=== PATIENT | female | born 1955 | race Caucasian/White ===

== ENCOUNTER 2017-12-30 05:22 | Inpatient (IN) | payer OTHER, BC ==
[2017-12-01 14:51] VITALS: BMI 39.0
--- NOTE | 2017-12-01 15:05 | PAT Medication Instructions ---
Service Date Dec 01, 2017. Current Home Medication List Naproxen (Aleve), 440 MG PO PRN Medication Instructions For Your Scheduled Surgery - Check with surgeon for instructions: Naproxen (Aleve), 440 MG PO PRN If you have any questions please call us at [phone] or [phone] or [phone]
[2017-12-01 15:27] LABS: BASO % 0.5 %; BASO ABS # 0.04 K/uL (0-0.2); EOS % 3.1 %; EOS ABS # 0.26 K/uL (0-0.5); HEMATOCRIT 41.4 % (37-47); HEMOGLOBIN 13.8 g/dL (12.0-16.0); IG# 0.02 K/uL (0.00-0.02); LYMPH % 29.6 %; LYMPH ABS # 2.49 K/uL (1.2-3.4); MEAN CELL VOLUME 93.9 fL (80-100); MEAN CORPUSCULAR HEMOGLOBIN 31.3 pg (25-34); MEAN CORPUSCULAR HGB CONC 33.3 g/dl (32-36); MEAN PLATELET VOLUME 9.7 fL (7.4-10.4); MONO % 11.2 %; MONO ABS # 0.94 K/uL (0.11-0.59); NEUT % 55.4 %; NEUT ABS # 4.66 K/uL (1.4-6.5); PLATELET COUNT 255 K/uL (130-400); RED CELL DISTRIBUTION WIDTH CV 14.8 % (11.5-14.5); RED CELL DISTRIBUTION WIDTH SD 50.6 fL (36.4-46.3); WHITE BLOOD COUNT 8.41 K/uL (4.8-10.8)
[2017-12-01 15:39] LABS: PTT PATIENT 25.2 SECONDS (21.0-31.0)
--- NOTE | 2017-12-01 15:56 | DIAGNOSTIC IMAGING REPORT ---
CHEST 2 VIEWS ROUTINE CLINICAL HISTORY: PAT preoperative evaluation COMPARISON STUDY: No previous studies for comparison. FINDINGS: The bones soft tissues and hemidiaphragms are normal. The cardiomediastinal silhouette is normal. The lungs are clear. The pulmonary vasculature is normal. IMPRESSION: Negative chest. The above report was generated using voice recognition software. It may contain grammatical, syntax or spelling errors. Electronically signed by: Edmund Allen M.D. 12/01/2017 3:55 PM Dictated Date/Time: 12/01/2017 3:55 PM
[2017-12-01 16:23] LABS: HEMOGLOBIN A1C 5.7 % (4.5-5.6)
[2017-12-01 16:58] LABS: ALBUMIN 3.9 gm/dl (3.4-5.0); CALCIUM 9.4 mg/dl (8.5-10.1); CREATININE 0.84 mg/dl (0.60-1.20); POTASSIUM 4.1 mmol/L (3.5-5.1)
--- NOTE | 2017-12-29 10:07 | HISTORY & PHYSICAL EXAMINATION ---
DATE OF ADMISSION: 12/30/2017 CHIEF COMPLAINT: Right knee pain. HISTORY OF PRESENT ILLNESS: The patient is a 62-year-old female with known osteoarthritis about her bilateral knees, right worse than left. She has had previous conservative care by an outside physician. She presented to us with thoughts of knee replacement surgery. Due to failure of conservative management and ongoing pain and disability with work and activities of daily living, she now desires to proceed with right total knee arthroplasty. PAST MEDICAL HISTORY: Hypertension. PAST SURGICAL HISTORY: None. MEDICATIONS: Lopressor 25 mg at bedtime. ALLERGIES: PENICILLIN in childhood. SOCIAL HISTORY AND REVIEW OF SYSTEMS: Noncontributory. PHYSICAL EXAMINATION: GENERAL: Well nourished, well developed female who appears her stated age. HEENT: Normocephalic, atraumatic, extraocular movements intact, oropharynx pink and moist. NECK: Supple without adenopathy. LUNGS: Clear to auscultation bilaterally. HEART: Regular rate and rhythm. ABDOMEN: Soft, nontender, nondistended, obese. EXTREMITIES: The upper extremities are within normal limits. The right knee has a varus alignment. She complains primarily of medial compartment pain. Her range of motion is from 0-120 degrees with some mild crepitus. X-RAYS: X-rays were reviewed. She has a varus aligned knee. She has [id number] arthritis of the medial compartment with large medial osteophytes. There is moderate degenerative change about the patellofemoral joint with osteophytes as well. ASSESSMENT: Right knee degenerative joint disease. PLAN: Risks versus benefits were discussed, consent was obtained. The patient's primary care physician is Lorne Victor PA-C from [facility] in [place]. We will proceed with right total knee arthroplasty as indicated.
[2017-12-30] VITALS (11 sets, daily range): BP systolic 125–204; BP diastolic 75–102; PULSE 67–99; TEMP 36.3–36.7; O2SAT 94–100; Ht 162.6 cm; Wt 104.9 kg
[~2017-12-30] VITALS: Ht 162.6 cm; Wt 104.9 kg
[~2017-12-30 05:22] MED LIST: MISSING PHYSICIAN SIGNATURE ON ORDER SCH; NAPR1TAB9 PO
[2017-12-30] MEDS ORDERED: METO25TA56 PO (05:48)
[2017-12-30] MEDS ORDERED: TRANEXAMIC ACID INJ 1,000 MG x 2 Bags IV SCH ×2 (06:00)
[2017-12-30] MEDS ORDERED: LACTATED RINGER'S 1000ML 1,000 ML IV SCH (06:00)
[2017-12-30] MEDS ORDERED: GABAPENTIN 600 MG PO SCH ×2 (06:00)
[2017-12-30] MEDS ORDERED: OXYCODONE HCL 10 MG TABCR (OXYCONTIN) PO SCH ×2 (06:00)
[2017-12-30] MEDS ORDERED: FAMOTIDINE 20 MG TAB PO SCH ×2 (06:00)
[2017-12-30] MEDS ORDERED: ROPIVACAINE 5MG/ML 30 ML 150 MG, BUPIVACAINE 0.5% MPF INJ 30 ML, EpINEphrine HCL INJ 0.... INFIL SCH ×8 (06:00)
[2017-12-30] MEDS ORDERED: LACTATED RINGER'S 1000ML 500 ML IV SCH (06:00)
[2017-12-30] MEDS ORDERED: CLINDAMYCIN 600 MG/54 ML D5W 54 ML IV SCH ×2 (06:00)
[2017-12-30] MEDS ORDERED: CeleBREX 200 MG CAP PO SCH ×2 (06:00)
[2017-12-30] MEDS ORDERED: LACTATED RINGER'S 1000ML IV SCH ×2 (06:00)
[2017-12-30] MEDS ORDERED: ACETAMINOPHEN 500 MG TAB PO SCH ×2 (06:00)
[2017-12-30] MEDS ORDERED: METOCLOPRAMIDE HCL 10 MG TAB PO SCH ×2 (06:00)
[2017-12-30] MEDS ORDERED: DEXAMETHASONE 4 MG TAB PO SCH ×2 (06:00)
[2017-12-30] MEDS ORDERED: BUPIVACAINE 0.5 % 5 MG/1 ML PF 10ML VIAL ONE (06:27)
[2017-12-30] MEDS ORDERED: PROPOFOL IV EMULSION 10 MG/ML 20 ML VIAL IV ONE (06:34)
[2017-12-30] MEDS ORDERED: FENTANYL CITRATE INJ 50 MCG/1 ML 2 ML VIAL ONE (06:34)
[2017-12-30] MEDS ORDERED: MIDAZOLAM HCL 1 MG/ML 2ML VIAL ONE ×2 (06:34→07:44)
--- NOTE | 2017-12-30 06:51 | History & Physical Bridge Note ---
H&P Re-Evaluation Bridge Note: I have examined the patient, reviewed the History & Physical and in the interval since the performance of the History & Physical I have noted the following changes of clinical significance: No changes noted
[2017-12-30] MEDS ORDERED: ORTHO JOINT ANESTHETIC ONE (06:59)
[2017-12-30] MEDS ORDERED: POVIDONE-IODINE OP SOLN 30 ML BTL ONE (06:59)
[2017-12-30] MEDS ORDERED: BACITRACIN 50000 UNIT VIAL ONE (06:59)
[2017-12-30] MEDS: TRANEXAMIC ACID INJ 1,000 MG x 2 Bags IV SCH ×4 (07:06→11:32)
[2017-12-30] MEDS ORDERED: EpHEDrine SULFATE INJ 50 MG/ML AMP IV PRN (07:45)
[2017-12-30] MEDS ORDERED: FENTANYL CITRATE INJ 50 MCG/1 ML 2 ML VIAL IV PRN (07:45)
[2017-12-30] MEDS ORDERED: ONDANSETRON INJ 2 MG/ML 2 ML VIAL IV PRN ×2 (07:45→09:15)
[2017-12-30] MEDS ORDERED: ATROPINE SULFATE 0.1 MG/ML 5ML SYR IV PRN (07:45)
--- NOTE | 2017-12-30 08:45 | [facility] Post Operative Brief Note ---
Immediate Operative Summary Operative Date Dec 30, 2017. Pre-Operative Diagnosis Right Knee Degenerative Joint Disease Post-Operative Diagnosis Right Knee Degenerative Joint Disease Procedure(s) Performed Right Total Knee Arthroplasty Surgeon Dr. Villalta Director Instrumentation Surgeon(s) Anil Hansen Pa-C Estimated Blood Loss 10 ml Findings Consistent with Post-Op Diagnosis Specimens A. Right Knee Bone and Tissue Anesthesia Type MAC Spinal Regional Complication(s) none Disposition Accompanied Pt To Recover: no Disposition: Recovery Room / PACU
[2017-12-30] MEDS ORDERED: MAGNESIUM HYDROXIDE SUSP 30 ML UDC PO PRN (09:15)
[2017-12-30] MEDS ORDERED: MoRPHine SULFATE 2 MG/ML CARP IV PRN ×2 (09:15→11:45)
[2017-12-30] MEDS ORDERED: METOCLOPRAMIDE HCL INJ 5 MG/ML 2 ML VIAL IV PRN (09:15)
[2017-12-30] MEDS ORDERED: ZOLPIDEM TARTRATE 5 MG TAB PO PRN (09:15)
[2017-12-30] MEDS ORDERED: OXYCODONE HCL IR 5 MG TAB (IMMEDIATE RELEASE) PO PRN (09:15)
[2017-12-30] MEDS ORDERED: ALUMINUM/MAGNESIUM/SIMETH (MAALOX MAX) 30 ML UDC PO PRN (09:15)
--- NOTE | 2017-12-30 09:28 | DIAGNOSTIC IMAGING REPORT ---
RIGHT KNEE 2 VIEWS History: Right total knee arthroplasty. Degenerative arthritis. Postop. FINDINGS: The patient is status post a right total knee arthroplasty. The hardware is intact. Subtle lucency at the proximal tip of the fibula best seen on the lateral view. Surgical drains are in place. IMPRESSION: Right total knee arthroplasty. Small horizontal lucency at the proximal tip of the fibula best seen on the lateral view. This favors a small nondisplaced fracture. Electronically signed by: Yannick Pruitt M.D. 12/30/2017 9:27 AM Dictated Date/Time: 12/30/2017 9:23 AM
--- NOTE | 2017-12-30 09:44 | Anesthesiology Progress Note ---
Anesthesia Post Op Note Date & Time Dec 30, 2017 at 09:44 Vital Signs Pain Intensity: 0 Vital Signs Past 12 Hours Date Time Temp Pulse Resp B/P (MAP) Pulse Ox O2 Delivery O2 Flow Rate FiO2 12/30/17 09:25 64 12 156/78 99 Nasal Cannula 2 12/30/17 09:15 62 12 156/81 98 Nasal Cannula 2 12/30/17 09:05 36.0 79 13 170/83 95 Nasal Cannula 2 12/30/17 05:45 36.5 75 20 204/102 99 Room Air Notes Mental Status: alert / awake / arousable, participated in evaluation Pt Amnestic to Procedure: Yes Nausea / Vomiting: adequately controlled Pain: adequately controlled Airway Patency, RR, SpO2: stable & adequate BP & HR: stable & adequate Hydration State: stable & adequate Neuraxial Anesthesia: was administered, sensory block is resolving Anesthetic Complications: no major complications apparent
--- NOTE | 2017-12-30 10:44 | OPERATIVE REPORT ---
DATE OF OPERATION: 12/30/2017 PREOPERATIVE DIAGNOSIS: Osteoarthritis right knee. POSTOPERATIVE DIAGNOSIS: Osteoarthritis right knee. PROCEDURE: Right total knee arthroplasty. SURGEON: Chaitanya Villalta MD ELECTRICAL HARDWARE ENGINEER: Anil Hnasen PA-C. ANESTHESIA: Spinal. COMPLICATIONS: None. OPERATION AND FINDINGS: Femoral size 3, tibial size 3, tibial poly 16, patella size 36. Following induction of spinal anesthesia, the patient's right leg was prepped and draped in the usual sterile manner. Limb was exsanguinated with an Esmarch bandage and tourniquet was inflated to 350 mmHg. A longitudinal incision was made anteriorly. Subcutaneous tissue was sharply dissected. Electrocautery was used for hemostasis. Prepatellar bursa was incised and median parapatellar incision was performed. Patella was everted and the knee was flexed. Fat pad was removed to aid in visualization and the anterior and posterior cruciate ligaments were removed. The medial face of the tibia was cleared of soft tissue first with a Bovie and a Rosen elevator. This tissue was retracted posteriorly using a blunt Hohmann. A Harper retractor was used to expose the synovium above on the anterior aspect of the femur and this was removed down to bone. The PSI guide was placed on the distal femur and two pins were placed anteriorly and kept in position and two additional pins were placed distally and removed. The distal femoral cutting block was placed in position and the distal femoral cut was used in the +0 setting. Next, the cutting block was removed and the size 3 block was placed in the distal end of the femur. Care was taken to ensure appropriate external rotation and feeler gauge was used to ensure no notching would occur. The femoral block was centered on the distal femur and in the medial and lateral direction and was fixed using two bone screws. The gold pins were then removed. The oscillating saw was used to create the bone cuts and the distal femoral cutting block was removed and the reciprocating saw was used to further trim the femoral cuts as well as a deep in the area for the trochlear groove. Next, posterior condyle remnants were removed. Following this, a meniscal clamp and knife were utilized to remove the anterior portion of both medial and lateral meniscus. The proximal tibia PSI guide was placed into position and the proximal tibial cutting guide was screwed into position. The extra medullary alignment guide was utilized to ensure appropriate alignment. The proximal tibia was cut and the proximal tibial cutting block was removed and this bone fragment was removed. The appropriate guide was used to perform the notch cut on the distal femur and a lamina non destructive evaluation manager and a cochlear knife were utilized to finish both medial and lateral meniscectomies to remove any remnants of the posterior or anterior cruciate ligaments. Following this, the distal femoral component was impacted into position and blunt Zen was used to sublux the tibia anteriorly. The proximal tibia was sized and a size 3 tibial tray was chosen as the size to be used. This was put into position and appropriate external rotation and a double check with extramedullary alignment guide was performed. The canal for the tibial stem was prepared first with a 17 mm drill and then the punch and a mallet and the trial tibial poly was placed. A tibial poly 16 was chosen the size to be used. It was brought to extension and the patella was prepared with the patellar reamer. A size 36 component was chosen the size to be used. The trial component was placed and knee was taken through a full range of motion and there was found to be no lateral subluxation of the tibia. No lateral release was required. The trials were all removed. The final components were obtained and assembled. Cement was mixed. The knee was thoroughly irrigated and the ortho mix was injected about the knee joint. The final components were cemented into position. After thoroughly suctioning and drying the bone ends, all excess cement was removed. The knee was held in extension while the cement hardened. The wound was irrigated and closed over a Hemovac drain. #1 Vicryl was used to close the extensor mechanism. Subcutaneous tissues closed using 0 Dexon. Skin was closed with lata. Sterile dressing of Adaptic, 4 x 4's, sterile Webril, and Solomon was applied. The patient tolerated the procedure well. Due to the complex nature of the procedure, the entire surgery was performed with the operational assistance of Anil Hansen PA-C. The funeral home assistant, under direct supervision, was involved in the actual performance of all aspects of the surgical procedure including hemostasis, tissue retraction and incision, instrument management, patient positioning, and wound closure. DISPOSITION: Recovery room stable. I attest to the content of the Intraoperative Record and any orders documented therein. Any exception s are noted below.
[2017-12-30] MEDS: D5W AND 1/2NSS + 20MEQ KCL 1,000 ML IV SCH ×2 (11:33→21:57)
[2017-12-30] MEDS: KETOROLAC TROMETHAMINE 30 MG/ML VIAL IV. SCH ×3 (11:33→23:49)
[2017-12-30] MEDS ORDERED: MoRPHine SULFATE 4 MG/ML 1 ML CARP\\VIAL IV PRN (11:45)
[2017-12-30] MEDS ORDERED: MoRPHine SULFATE 10 MG/ML CARP/VIAL IV PRN (11:45)
[2017-12-30] MEDS: FERROUS GLUCONATE 324 MG TAB PO SCH ×2 (12:35→18:06)
[2017-12-30] MEDS ORDERED: HydrALAZINE HCL 20 MG/ML VIAL IV. PRN (12:45)
--- NOTE | 2017-12-30 12:56 | Medical Consult ---
Consultation Date of Consultation: Dec 30, 2017. Attending Physician: Chaitanya Villalta M.D. Reason for Consultation: Medical management HTN History of Present Illness Pt is 62 y/o F with PMH HTN, obesity seen in medical consultation for HTN. Pt had R TKA today by Dr Villalta. BP prior to surgery was 204/102. Current BP: 158/ 84. Pt states was nervous this morning prior to surgery. Pt reports hx HTN with anxiety. She states takes BP at home and sometimes BP before work is SBP 180 ( pt states gets anxious about going to work) and SBP in 130's in the evening after she home from work. Seen PCP on 12/09/17, in office BP was 138/86 and was started on metoprolol tartrate 25mg po HS. Had small BM this morning prior to surgery. Has not urinated since surgery yet. Denies any nausea or vomiting and drinking water currently without problems. States right leg still feels numb and difficulty moving since surgery. Is not currently having any pain. Denies fever/chills, diaphoresis, MÁRQUEZ, dizziness, syncope, vision changes, neck pain, CP , SOB, orthopnea, palpitations, cough, sore throat, choking, otalgia, rhinorrhea , abdominal pain, rashes, urinary symptoms, weight loss. Past Medical/Surgical History Medical Problems: (1) Degenerative arthritis of right knee Status: Chronic (2) HTN (hypertension) Status: Chronic (3) Obesity Status: Chronic Surgical Problems: (1) Hx of section Status: Resolved (2) Hx of tonsillectomy Status: Resolved (3) Hx of total knee arthroplasty Status: Resolved Family History FH: lung cancer Social History Smoking Status: Never Smoker Smokeless Tobacco Use: No Alcohol Use: socially Drug Use: none Allergies Coded Allergies: Penicillins (Verified Allergy, Unknown, UNKNOWN, 12/30/17) Unclassified Drugs (Verified Allergy, Unknown, ACIDIC FOODS-SORES ON MOUTH , 12/30/17) Home Medications Reported Home Medications Medications Dose Route/Sig Max Daily Dose Days Date Category Lopressor (Metoprolol Tartrate) 25 Mg Tab 25 Mg PO HS 12/30/17 Reported Aleve (Naproxen) 220 Mg Tab 440 Mg PO BID PRN 12/01/17 Reported Current Inpatient Medications Current Inpatient Medications Medications (Trade) Dose Ordered Sig/Lacey Route Start Time Stop Time Status Last Admin Dose Admin Clindamycin Phosphate 54 ml @ 100 mls/hr PREOP IV 12/30/17 06:00 12/31/17 05:59 12/30/17 07:35 100 MLS/HR Acetaminophen (Tylenol Tab) 1,000 mg PREOP PO 12/30/17 06:00 12/30/17 18:00 12/30/17 06:11 1,000 MG Celecoxib (CeleBREX CAP) 200 mg PREOP PO 12/30/17 06:00 12/30/17 18:00 12/30/17 06:11 200 MG Dexamethasone (Decadron Tab) 8 mg PREOP PO 12/30/17 06:00 12/30/17 18:00 12/30/17 06:10 8 MG Famotidine (Pepcid Tab) 20 mg PREOP PO 12/30/17 06:00 12/30/17 18:00 12/30/17 06:10 20 MG Gabapentin (Neurontin Cap) 600 mg PREOP PO 12/30/17 06:00 12/30/17 18:00 12/30/17 06:10 600 MG Metoclopramide HCl (Reglan Tab) 10 mg PREOP PO 12/30/17 06:00 12/30/17 18:00 12/30/17 06:10 10 MG Oxycodone HCl (Oxycontin Tab) 10 mg PREOP PO 12/30/17 06:00 12/30/17 18:00 12/30/17 06:11 10 MG Tranexamic Acid 1000 mg/Sodium Chloride 110 ml @ 660 mls/hr TODAY@06,0630 IV 12/30/17 06:00 12/30/17 18:00 12/30/17 07:06 660 MLS/HR Fentanyl Citrate (Fentanyl Inj) 50 mcg Q5M PRN IV 12/30/17 07:45 12/30/17 12:45 Ondansetron HCl (Zofran Inj) 4 mg ONE PRN IV 12/30/17 07:45 12/30/17 12:45 Ephedrine Sulfate (EpHEDrine SULFATE INJ) 5 mg Q5M PRN IV 12/30/17 07:45 12/30/17 12:45 Atropine Sulfate (Atropine Sulfate 0.1mg/ml Inj) 0.5 mg Q1M PRN IV 12/30/17 07:45 12/30/17 12:45 Potassium Chloride/Dextrose/ Sod Cl 1,000 ml @ 100 mls/hr Q10H IV 12/30/17 11:30 12/31/17 09:05 12/30/17 11:33 100 MLS/HR Clindamycin Phosphate 600 mg/ Dextrose 54 ml @ 100 mls/hr Q8H IV 12/30/17 16:00 12/31/17 00:33 Ketorolac Tromethamine (Toradol Inj) 30 mg Q6H IV. 12/30/17 12:00 12/31/17 11:59 12/30/17 11:33 30 MG Oxycodone HCl (Roxicodone Immediate Rel Tab) 1 TABLET FOR PAIN RATING... Q4H PRN PO 12/30/17 09:15 01/13/18 09:14 Acetaminophen (Tylenol Tab) 1,000 mg Q8H PO 12/30/17 14:00 01/29/18 13:59 Magnesium Hydroxide (Milk Of Magnesia Susp) 30 ml Q6H PRN PO 12/30/17 09:15 01/29/18 09:14 Docusate Sodium (coLACE CAP) 100 mg BID PO 12/30/17 21:00 01/29/18 20:59 Diphenhydramine HCl (Benadryl Cap) 25 mg Q8H PRN PO 12/30/17 09:15 01/29/18 09:14 Al Hydrox/Mg Hydrox/Simethicone (Maalox Max Susp) 15 ml Q4H PRN PO 12/30/17 09:15 01/29/18 09:14 Zolpidem Tartrate (Ambien Tab) 5 mg HSZ PRN PO 12/30/17 09:15 01/29/18 09:14 Multivitamins (Multivitamin Tab) 1 tab QAM PO 12/31/17 09:00 01/30/18 08:59 Ondansetron HCl (Zofran Inj) 4 mg Q6H PRN IV 12/30/17 09:15 01/29/18 09:14 Metoclopramide HCl (Reglan Inj) 10 mg Q6H PRN IV 12/30/17 09:15 01/29/18 09:14 Ferrous Gluconate (Ferrous Gluconate Tab) 324 mg TIDM PO 12/30/17 12:30 01/29/18 12:29 Pantoprazole Sodium (Protonix Tab) 40 mg QAM PO 12/31/17 09:00 01/04/18 08:59 Dexamethasone Sodium Phosphate 10 mg/Syringe 2.5 ml @ 1 mls/min ONE ONCE IV 12/31/17 07:30 12/31/17 07:32 Aspirin (Ecotrin Tab) 81 mg BID PO 12/30/17 21:00 01/29/18 20:59 Metoprolol Tartrate (Lopressor Tab) 25 mg HS PO 12/30/17 21:00 01/29/18 20:59 Morphine Sulfate (MoRPHine SULFATE INJ) 2 mg Q2HWA PRN IV 12/30/17 11:45 01/13/18 11:44 Morphine Sulfate (MoRPHine SULFATE INJ) 4 mg Q2HWA PRN IV 12/30/17 11:45 01/13/18 11:44 Morphine Sulfate (MoRPHine SULFATE INJ) 6 mg Q2HWA PRN IV 12/30/17 11:45 01/13/18 11:44 Review of Systems See HPI for pertinent positives & negatives. All other systems reviewed and were otherwise negative Physical Exam Date Time Temp Pulse Resp B/P (MAP) Pulse Ox O2 Delivery O2 Flow Rate FiO2 12/30/17 11:31 36.3 67 19 158/84 (108) 100 Nasal Cannula 2.0 12/30/17 11:02 99 Nasal Cannula 2.0 12/30/17 10:50 36.6 70 16 153/82 (105) 99 Nasal Cannula 2.0 12/30/17 10:50 99 Nasal Cannula 2.0 12/30/17 10:30 65 12 169/78 98 Nasal Cannula 2 12/30/17 10:15 77 12 165/86 99 Nasal Cannula 2 12/30/17 10:00 61 12 164/83 97 Nasal Cannula 2 12/30/17 09:45 36.1 63 12 154/81 99 Nasal Cannula 2 12/30/17 09:35 67 14 169/77 99 Nasal Cannula 2 12/30/17 09:25 64 12 156/78 99 Nasal Cannula 2 12/30/17 09:15 62 12 156/81 98 Nasal Cannula 2 12/30/17 09:05 36.0 79 13 170/83 95 Nasal Cannula 2 12/30/17 05:45 36.5 75 20 204/102 99 Room Air General Appearance: no apparent distress, + obese Head: normocephalic, atraumatic Eyes: normal inspection, sclerae normal ENT: hearing grossly normal, pharynx normal Neck: supple, trachea midline Respiratory/Chest: lungs clear, normal breath sounds, no respiratory distress Cardiovascular: regular rate, rhythm, no murmur Abdomen/GI: normal bowel sounds, non tender, soft Extremities/Musculoskelatal: normal capillary refill, no pedal edema, + pertinent finding (distal pulses intact bilaterally. decreased sensation to right leg and foot with limited active ROM of toes. Pedal pushes and pulls and sensation to light touch intact LLE.) Neurologic/Psych: alert, normal mood/affect, oriented x 3 Skin: normal color, warm/dry Laboratory Results Last 24 Hours Test 12/30/17 05:51 Assessment & Plan Pt post op day# 0 S/P R TKA by Dr Villalta -pain management per ortho -wound management per ortho -PT/OT as appropriate -DVT prophylaxis per ortho -incentive spirometry -monitor H&H for acute blood loss anemia HTN BP currently 158/84 -continue metoprolol -hydralazine prn -continue to monitor DVT Prophylaxis -SCD per ortho Disposition admitted medsurg Full Code Follows with Lorne Coronado for routine care Pt was seen with Dr Coffman. See addendum Additional Copies To Lorne Victor PA-C
[2017-12-30] MEDS: ACETAMINOPHEN 500 MG TAB PO SCH ×2 (13:34→21:57)
[2017-12-30] MEDS: CLINDAMYCIN IV 600 MG in DEXTROSE 5% 50ML 50 ML IV SCH ×2 (16:24→23:47)
[2017-12-30] MEDS: DOCUSATE SODIUM 100 MG CAP PO SCH (21:11)
[2017-12-30] MEDS: ASPIRIN 81 MG ECTAB PO SCH (21:11)
[2017-12-30] MEDS: METOPROLOL TARTRATE 25 MG TAB PO SCH (21:12)
[2017-12-31] VITALS (7 sets, daily range): BP systolic 120–178; BP diastolic 72–92; PULSE 69–81; TEMP 36.5–36.9; O2SAT 95–98
[2017-12-31] MEDS: KETOROLAC TROMETHAMINE 30 MG/ML VIAL IV. SCH (05:34)
[2017-12-31] MEDS: ACETAMINOPHEN 500 MG TAB PO SCH ×3 (05:35→21:11)
--- NOTE | 2017-12-31 07:26 | Anesthesiology Progress Note ---
Anesthesia Post Op Note Date & Time Dec 31, 2017 at 07:25 Vital Signs Pain Intensity: 0.0 Vital Signs Past 12 Hours Date Time Temp Pulse Resp B/P (MAP) Pulse Ox O2 Delivery O2 Flow Rate FiO2 12/31/17 03:48 36.9 81 20 158/92 (114) 98 Room Air 12/30/17 23:55 Room Air 12/30/17 23:05 36.7 76 16 145/80 (101) 95 Room Air 12/30/17 21:14 99 158/77 (104) Notes Mental Status: alert / awake / arousable, participated in evaluation Pt Amnestic to Procedure: Yes Nausea / Vomiting: adequately controlled Pain: adequately controlled Airway Patency, RR, SpO2: stable & adequate BP & HR: stable & adequate Hydration State: stable & adequate Anesthetic Complications: no major complications apparent
[2017-12-31] MEDS ORDERED: DEXAMETHASONE INJ 10 MG in SYRINGE 0 ML IV ONE (07:30)
[2017-12-31] MEDS: D5W AND 1/2NSS + 20MEQ KCL 1,000 ML IV SCH (07:30)
--- NOTE | 2017-12-31 07:33 | Orthopedic Progress Note ---
Orthopedic Progress Note Date of Service Dec 31, 2017. Subjective Post OP Day: 1 Reports: feeling well Additional Notes: Pt still with elevated BP Objective N/V intact, dressing C/D/I (Hemovac d/c'd), toes mobile Date Time Temp Pulse Resp B/P (MAP) Pulse Ox O2 Delivery O2 Flow Rate FiO2 12/31/17 03:48 36.9 81 20 158/92 (114) 98 Room Air 12/30/17 23:55 Room Air 12/30/17 23:05 36.7 76 16 145/80 (101) 95 Room Air 12/30/17 21:14 99 158/77 (104) 12/30/17 19:03 36.6 90 16 125/75 (92) 94 Room Air 12/30/17 15:20 Room Air 12/30/17 15:17 36.4 78 18 143/78 (99) 96 Room Air 12/30/17 13:50 76 16 130/80 (97) 99 Nasal Cannula 2.0 12/30/17 12:50 71 16 125/80 (95) 99 Nasal Cannula 2.0 12/30/17 11:50 70 16 163/85 (111) 96 Nasal Cannula 2.0 12/30/17 11:31 36.3 67 19 158/84 (108) 100 Nasal Cannula 2.0 12/30/17 11:02 99 Nasal Cannula 2.0 12/30/17 10:50 36.6 70 16 153/82 (105) 99 Nasal Cannula 2.0 12/30/17 10:50 99 Nasal Cannula 2.0 12/30/17 10:30 65 12 169/78 98 Nasal Cannula 2 12/30/17 10:15 77 12 165/86 99 Nasal Cannula 2 12/30/17 10:00 61 12 164/83 97 Nasal Cannula 2 12/30/17 09:45 36.1 63 12 154/81 99 Nasal Cannula 2 12/30/17 09:35 67 14 169/77 99 Nasal Cannula 2 12/30/17 09:25 64 12 156/78 99 Nasal Cannula 2 12/30/17 09:15 62 12 156/81 98 Nasal Cannula 2 12/30/17 09:05 36.0 79 13 170/83 95 Nasal Cannula 2 Laboratory Results 24 Hours: Test 12/31/17 07:16 Additional Notes: Labs pending Assessment & Plan Assessment: 1. Med management 2. DVT prophylaxis- ASA, SCDs 3. PT/OT 4. D/C planning- home w/ OPPT
--- NOTE | 2017-12-31 07:35 | Discharge Instructions ---
Discharge Instructions Date of Service Dec 31, 2017. Admission Reason for Admission: Right Knee Osteoarthritis Discharge Discharge Diagnosis / Problem: Right knee arthritis Discharge Goals Goal(s): Decrease discomfort, Improve function Activity Recommendations Activity Limitations: as noted below Weightbearing Status: Right weightbearing (as tolerated) . Instructions / Follow-Up Instructions / Follow-Up ACTIVITY RECOMMENDATIONS: SELF CARE INSTRUCTIONS AFTER TOTAL KNEE REPLACEMENT A. You may need to continue a physical therapy program after discharge from the hospital. There are several options available to you. Your doctor will assist you in selecting the best one for you. 1. An out-patient facility 2 to 3 times a week for therapy or home therapy. 2. Continue working on all exercises taught to you in the hospital. Your goals should be to increase bending of your knee to 90 degrees and beyond and to fully straighten your knee. B. You may progress at your own pace from walking with a walker or crutches to a cane; then to no assistive devices. C. Make walking a part of your daily routine. Be up as much as comfortable with rest periods throughout the day. Rest with leg elevation is very important. Use the ice wrap frequently for the first 3-4 weeks. D. There are no restrictions on activities. You may ride in a car, shop, participate in manager appointment and all social activities. E. Wear the long elastic stockings (PARVIZ hose) 20 hours a day for 2 weeks after surgery. They can be removed several times a day for laundering and for a bath. F. You may shower, no tub baths until cleared by your doctor. SPECIAL CARE INSTRUCTIONS: VERY IMPORTANT TO READ AND REVIEW A. There are a few signs you need to watch for after you are home. Call [facility] if you notice any of the followin. Increased severe knee pain. Some pain is expected especially when you exercise. 2. Increased swelling in your leg or knee; pain or swelling of the calf muscle in either lower leg. 3. Any fluid drainage from the incision. 4. Shortness of breath or chest pain. B. Please call [facility] at if you have any concerns or questions about your operation or recovery. The doctor or his nurse will return your call promptly. C. You must take antibiotics before dental work, bladder, bowel or other surgery. Your doctor will provide you with a permanent care to carry describing this precaution. IMPORTANT: * REMEMBER TO TAKE ASPIRIN, 81 MG, TWICE DAILY FOR 4 WEEKS UNLESS OTHERWISE DIRECTED. THIS IS YOUR BLOOD THINNER. * HIGH RISK PATIENTS MAY BE PRESCRIBED A STRONGER BLOOD THINNER. THIS WILL BE PROVIDED AT DISCHARGE. * CALL IF INCREASED PAIN, REDNESS, DRAINAGE OR FEVER GREATER THAT 101. * WEAR PARVIZ HOSE 20 HOURS PER DAY FOR 2 WEEKS. * You have a Zipline Closure System. As noted below, this keeps your incision closed. Change the dressing daily. Keep the wound covered with a dressing as it has the potential to snag on your clothing. The Zipline will remain on for a total of 2 weeks. Do not remove it! You may shower with this on. Do not soak it; no tub baths. You will be given instructions by nursing staff at the time of discharge to care for your Zip Closure System. This devices uses plastic straps to keep your incision closed and protected throughout your recovery. If you have any questions please refer to these instructions first. . * If you have a Silverlon dressing over the zipline closure, this will remain on for 7 days and then can be removed. Do not pull off the zipline while removing the Silverlon. FOLLOW UP VISIT: If appointment is not already scheduled: Please call [facility] to make a follow-up appointment for 2 weeks after your surgery at . Current Hospital Diet Patient's current hospital diet: Regular Diet Discharge Diet Recommended Diet: Regular Diet Procedures Procedures Performed: Right Total Knee Arthroplasty Pending Studies Studies pending at discharge: no Laboratory Results Hemoglobin A1c Test 12/01/17 14:49 Range/Units Estimated Average Glucose 117 mg/dl Hemoglobin A1c 5.7 H 4.5-5.6 % Medical Emergencies . Who to Call and When: Medical Emergencies: If at any time you feel your situation is an emergency, please call 911 immediately. . Non-Emergent Contact Non-Emergency issues call your: Surgeon Call Non-Emergent contact if: temperature is above 101.5, your pain is not controlled, wound has increased drainage, wound has increased redness . "Provider Documentation" section prepared by Anil Hansen PA-C. . [place] Drug Monitoring Program Search Results: patient reviewed within database, no issues identified
[2017-12-31 07:43] LABS: HEMATOCRIT 27.8 % (37-47); HEMOGLOBIN 9.2 g/dL (12.0-16.0); MEAN CELL VOLUME 93.3 fL (80-100); MEAN CORPUSCULAR HEMOGLOBIN 30.9 pg (25-34); MEAN CORPUSCULAR HGB CONC 33.1 g/dl (32-36); MEAN PLATELET VOLUME 9.3 fL (7.4-10.4); PLATELET COUNT 210 K/uL (130-400); RED CELL DISTRIBUTION WIDTH CV 14.4 % (11.5-14.5); RED CELL DISTRIBUTION WIDTH SD 49.2 fL (36.4-46.3); WHITE BLOOD COUNT 13.83 K/uL (4.8-10.8)
[2017-12-31 08:18] LABS: CALCIUM 7.9 mg/dl (8.5-10.1); CREATININE 1.02 mg/dl (0.60-1.20); POTASSIUM 4.1 mmol/L (3.5-5.1)
[2017-12-31] MEDS: MULTIVITAMIN TAB PO SCH (08:58)
[2017-12-31] MEDS: ASPIRIN 81 MG ECTAB PO SCH ×2 (08:58→21:11)
[2017-12-31] MEDS: FERROUS GLUCONATE 324 MG TAB PO SCH ×3 (08:58→18:27)
[2017-12-31] MEDS: PANTOprazole SOD 40 MG TAB PO SCH (08:58)
[2017-12-31] MEDS: DOCUSATE SODIUM 100 MG CAP PO SCH ×2 (08:59→21:11)
--- NOTE | 2017-12-31 18:02 | Progress Note ---
Medicine Progress Note Date & Time of Visit: Dec 31, 2017 at 18:02. Subjective Patient reports doing better, this AM felt some lightheadedness and nausea but that has not recurred. Tolerating PO without difficulty. No overnight events noted. No BM yet but passing flatus. Pain is controlled. States her right toes feel tingly but able to move them without pain or difficulty. Objective Last 8 Hrs Date Time Temp Pulse Resp B/P (MAP) Pulse Ox O2 Delivery O2 Flow Rate FiO2 12/31/17 16:06 137/78 (97) 12/31/17 15:53 Room Air 12/31/17 15:29 36.5 72 18 178/83 (114) 98 Room Air 12/31/17 11:57 36.7 74 18 165/84 (111) 95 Room Air Physical Exam: GENERAL: Patient is in no acute distress. HEENT: No acute trauma, normocephalic, mucous membranes moist, no nasal congestion, no scleral icterus. NECK: No stridor, trachea is midline. LUNGS: Clear to auscultation bilaterally, no wheeze, no rhonchi, breath sounds equal. HEART: Without murmurs gallops or rubs, regular rate and rhythm. ABDOMEN: Soft, nontender, bowel sounds positive EXTREMITIES: No cyanosis or edema, moving all extremities, right knee with post surgical dressing NEUROLOGIC: Oriented x 3, no acute motor or sensory deficits, no focal weakness. SKIN: No rash, no jaundice, no diaphoresis. Laboratory Results: Last 24 Hours Test 12/31/17 07:16 White Blood Count 13.83 K/uL Red Blood Count 2.98 M/uL Hemoglobin 9.2 g/dL Hematocrit 27.8 % Mean Corpuscular Volume 93.3 fL Mean Corpuscular Hemoglobin 30.9 pg Mean Corpuscular Hemoglobin Concent 33.1 g/dl RDW Standard Deviation 49.2 fL RDW Coefficient of Variation 14.4 % Platelet Count 210 K/uL Mean Platelet Volume 9.3 fL Sodium Level 138 mmol/L Potassium Level 4.1 mmol/L Chloride Level 109 mmol/L Carbon Dioxide Level 23 mmol/L Anion Gap 6.0 mmol/L Blood Urea Nitrogen 16 mg/dl Creatinine 1.02 mg/dl Est Creatinine Clear Calc Drug Dose 68.4 ml/min Estimated GFR () 68.8 Estimated GFR (Non- 59.3 BUN/Creatinine Ratio 15.7 Random Glucose 137 mg/dl Calcium Level 7.9 mg/dl Assessment & Plan POSTOPERATIVE S/ RIGHT TKA: -post op day# 1 -pain control per ortho -drain and wound management per ortho -PT on board -DVT prophylaxis per ortho -incentive spirometry encourage -monitor Hb for anemia from blood loss -bowel regimen as previously ordered by Ortho HTN: -continue metoprolol -hydralazine prn -continue to monitor and will titrate meds as needed Current Inpatient Medications: Current Inpatient Medications Medications (Trade) Dose Ordered Sig/Lacey Route Start Time Stop Time Status Last Admin Dose Admin Oxycodone HCl (Roxicodone Immediate Rel Tab) 1 TABLET FOR PAIN RATING... Q4H PRN PO 12/30/17 09:15 01/13/18 09:14 Acetaminophen (Tylenol Tab) 1,000 mg Q8H PO 12/30/17 14:00 01/29/18 13:59 12/31/17 13:55 1,000 MG Magnesium Hydroxide (Milk Of Magnesia Susp) 30 ml Q6H PRN PO 12/30/17 09:15 01/29/18 09:14 Docusate Sodium (coLACE CAP) 100 mg BID PO 12/30/17 21:00 01/29/18 20:59 12/31/17 08:59 100 MG Diphenhydramine HCl (Benadryl Cap) 25 mg Q8H PRN PO 12/30/17 09:15 01/29/18 09:14 Al Hydrox/Mg Hydrox/Simethicone (Maalox Max Susp) 15 ml Q4H PRN PO 12/30/17 09:15 01/29/18 09:14 Zolpidem Tartrate (Ambien Tab) 5 mg HSZ PRN PO 12/30/17 09:15 01/29/18 09:14 Multivitamins (Multivitamin Tab) 1 tab QAM PO 12/31/17 09:00 01/30/18 08:59 12/31/17 08:58 1 TAB Ondansetron HCl (Zofran Inj) 4 mg Q6H PRN IV 12/30/17 09:15 01/29/18 09:14 12/31/17 07:36 4 MG Metoclopramide HCl (Reglan Inj) 10 mg Q6H PRN IV 12/30/17 09:15 01/29/18 09:14 Ferrous Gluconate (Ferrous Gluconate Tab) 324 mg TIDM PO 12/30/17 12:30 01/29/18 12:29 12/31/17 12:15 324 MG Pantoprazole Sodium (Protonix Tab) 40 mg QAM PO 12/31/17 09:00 01/04/18 08:59 12/31/17 08:58 40 MG Aspirin (Ecotrin Tab) 81 mg BID PO 12/30/17 21:00 01/29/18 20:59 12/31/17 08:58 81 MG Metoprolol Tartrate (Lopressor Tab) 25 mg HS PO 12/30/17 21:00 01/29/18 20:59 12/30/17 21:12 25 MG Morphine Sulfate (MoRPHine SULFATE INJ) 2 mg Q2HWA PRN IV 12/30/17 11:45 01/13/18 11:44 Morphine Sulfate (MoRPHine SULFATE INJ) 4 mg Q2HWA PRN IV 12/30/17 11:45 01/13/18 11:44 Morphine Sulfate (MoRPHine SULFATE INJ) 6 mg Q2HWA PRN IV 12/30/17 11:45 01/13/18 11:44 Hydralazine HCl (HydrALAZINE INJ) 10 mg Q6 PRN IV. 12/30/17 12:45 01/29/18 12:44
[2017-12-31] MEDS: METOPROLOL TARTRATE 25 MG TAB PO SCH (21:11)
[2018-01-01] MEDS: ACETAMINOPHEN 500 MG TAB PO SCH (05:52)
[2018-01-01 06:25] VITALS: BP 160/84; PULSE 71; TEMP 36.5; O2SAT 97
[2018-01-01 07:00] VITALS: O2SAT 97
[2018-01-01 08:02] VITALS: BP 160/84; PULSE 71; TEMP 36.5; O2SAT 97
[2018-01-01] MEDS: MULTIVITAMIN TAB PO SCH (08:28)
[2018-01-01] MEDS: FERROUS GLUCONATE 324 MG TAB PO SCH ×2 (08:28→12:40)
[2018-01-01] MEDS: PANTOprazole SOD 40 MG TAB PO SCH (08:28)
[2018-01-01] MEDS: ASPIRIN 81 MG ECTAB PO SCH (08:29)
[2018-01-01] MEDS: DOCUSATE SODIUM 100 MG CAP PO SCH (08:29)
--- NOTE | 2018-01-01 09:52 | Orthopedic Progress Note ---
Orthopedic Progress Note Date of Service Jan 01, 2018. Subjective Post OP Day: 2 Reports: feeling well, pain controlled w PO medications, Denies: chest pain, SOB , nausea / vomiting, light headedness, calf pain Objective calves soft nontender, N/V intact, capillary refill less than 2 sec., dressing C /D/I, A&O x3, toes mobile (numbness/tingling resolving) Date Time Temp Pulse Resp B/P (MAP) Pulse Ox O2 Delivery O2 Flow Rate FiO2 01/01/18 08:02 36.5 71 16 97 Room Air 01/01/18 07:00 97 Room Air 01/01/18 06:25 36.5 71 16 160/84 (109) 97 Room Air 01/01/18 00:30 Room Air 12/31/17 23:06 36.8 72 16 120/72 (88) 96 Room Air 12/31/17 21:09 72 132/76 (94) 12/31/17 16:06 137/78 (97) 12/31/17 15:53 Room Air 12/31/17 15:29 36.5 72 18 178/83 (114) 98 Room Air 12/31/17 11:57 36.7 74 18 165/84 (111) 95 Room Air Assessment & Plan Assessment: 1. Med management 2. DVT prophylaxis- ASA, SCDs 3. PT/OT 4. D/C planning- home w/ OPPT today Inhouse Planning Pain Management: PO Tylenol, Oxy IR DVT Prophylaxis: TEDs, SCDs, ASA Discharge Planning Discharge Planning: home with oppt Pain Management: PO Tylenol, Oxy IR DVT Prophylaxis: TEDs, ASA Therapy: Physical Therapy
[2018-01-01] MEDS ORDERED: ACET-24 PO (09:54)
[2018-01-01] MEDS ORDERED: FRRG PO (09:54)
[2018-01-01] MEDS ORDERED: RXC5 PO (09:54)
[2018-01-01] MEDS ORDERED: ASPI-320 PO (09:54)
[2018-01-01] MEDS ORDERED: ONDA-170 PO (09:54)
[2018-01-01 11:25] VITALS: BP 144/80; PULSE 78; O2SAT 98
--- NOTE | 2018-01-01 13:05 | Progress Note ---
Medicine Progress Note Date & Time of Visit: Jan 01, 2018 at 13:02. Objective Last 8 Hrs Date Time Temp Pulse Resp B/P (MAP) Pulse Ox O2 Delivery O2 Flow Rate FiO2 01/01/18 11:25 78 98 01/01/18 08:02 36.5 71 16 97 Room Air 01/01/18 07:00 97 Room Air 01/01/18 06:25 36.5 71 16 160/84 (109) 97 Room Air Physical Exam: GENERAL: Patient is in no acute distress. HEENT: No acute trauma, normocephalic, mucous membranes moist, no nasal congestion, no scleral icterus. NECK: No stridor, trachea is midline. LUNGS: Clear to auscultation bilaterally, no wheeze, no rhonchi, breath sounds equal. HEART: Without murmurs gallops or rubs, regular rate and rhythm. ABDOMEN: Soft, nontender, bowel sounds positive EXTREMITIES: No cyanosis or edema, moving all extremities, right knee with post surgical dressing NEUROLOGIC: Oriented x 3, no acute motor or sensory deficits, no focal weakness. SKIN: No rash, no jaundice, no diaphoresis. Assessment & Plan POSTOPERATIVE S/ RIGHT TKA: -post op day# 2 -pain control per ortho -drain and wound management per ortho -PT on board -DVT prophylaxis per ortho -incentive spirometry encourage -monitor Hb for anemia from blood loss -bowel regimen as previously ordered by Ortho HTN: -continue metoprolol -hydralazine prn -continue to monitor and will titrate meds as needed Current Inpatient Medications: Current Inpatient Medications Medications (Trade) Dose Ordered Sig/Lacey Route Start Time Stop Time Status Last Admin Dose Admin Oxycodone HCl (Roxicodone Immediate Rel Tab) 1 TABLET FOR PAIN RATING... Q4H PRN PO 12/30/17 09:15 01/13/18 09:14 Acetaminophen (Tylenol Tab) 1,000 mg Q8H PO 12/30/17 14:00 01/29/18 13:59 01/01/18 05:52 1,000 MG Magnesium Hydroxide (Milk Of Magnesia Susp) 30 ml Q6H PRN PO 12/30/17 09:15 01/29/18 09:14 Docusate Sodium (coLACE CAP) 100 mg BID PO 12/30/17 21:00 01/29/18 20:59 01/01/18 08:29 100 MG Diphenhydramine HCl (Benadryl Cap) 25 mg Q8H PRN PO 12/30/17 09:15 01/29/18 09:14 Al Hydrox/Mg Hydrox/Simethicone (Maalox Max Susp) 15 ml Q4H PRN PO 12/30/17 09:15 01/29/18 09:14 Zolpidem Tartrate (Ambien Tab) 5 mg HSZ PRN PO 12/30/17 09:15 01/29/18 09:14 Multivitamins (Multivitamin Tab) 1 tab QAM PO 12/31/17 09:00 01/30/18 08:59 01/01/18 08:28 1 TAB Ondansetron HCl (Zofran Inj) 4 mg Q6H PRN IV 12/30/17 09:15 01/29/18 09:14 12/31/17 07:36 4 MG Metoclopramide HCl (Reglan Inj) 10 mg Q6H PRN IV 12/30/17 09:15 01/29/18 09:14 Ferrous Gluconate (Ferrous Gluconate Tab) 324 mg TIDM PO 12/30/17 12:30 01/29/18 12:29 01/01/18 12:40 324 MG Pantoprazole Sodium (Protonix Tab) 40 mg QAM PO 12/31/17 09:00 01/04/18 08:59 01/01/18 08:28 40 MG Aspirin (Ecotrin Tab) 81 mg BID PO 12/30/17 21:00 01/29/18 20:59 01/01/18 08:29 81 MG Metoprolol Tartrate (Lopressor Tab) 25 mg HS PO 12/30/17 21:00 01/29/18 20:59 12/31/17 21:11 25 MG Morphine Sulfate (MoRPHine SULFATE INJ) 2 mg Q2HWA PRN IV 12/30/17 11:45 01/13/18 11:44 Morphine Sulfate (MoRPHine SULFATE INJ) 4 mg Q2HWA PRN IV 12/30/17 11:45 01/13/18 11:44 Morphine Sulfate (MoRPHine SULFATE INJ) 6 mg Q2HWA PRN IV 12/30/17 11:45 01/13/18 11:44 Hydralazine HCl (HydrALAZINE INJ) 10 mg Q6 PRN IV. 12/30/17 12:45 01/29/18 12:44
== END 2018-01-01 13:37 | disposition home or self-care (01) | DRG 470 ==
LOC: C.ACU 05:22 → C.MSW 06:40 → ENRESERV 10:22
PROC: 0SRC0J9 Replacement of Right Knee Joint with Synthetic Substitute, Cemented, Open Approach (ICD-10-PCS; principal; 2017-12-30 07:30)
DX: M17.11 Unilateral primary osteoarthritis, right knee (principal); I10 Essential (primary) hypertension; E66.9 Obesity, unspecified; Z68.39 Body mass index [BMI] 39.0-39.9, adult; Z79.899 Other long term (current) drug therapy; Z88.0 Allergy status to penicillin; F41.9 Anxiety disorder, unspecified

== ENCOUNTER → 2018-04-11 | Outpatient (CLI) | payer OTHER, BC ==
[~2018-04-11] MED LIST changes: +ASPCH81X PO; +METO25TA56 PO; -MISSING PHYSICIAN SIGNATURE ON ORDER SCH; -NAPR1TAB9 PO
[2018-04-11 18:29] LABS: BASO % 0.4 %; BASO ABS # 0.03 K/uL (0-0.2); EOS % 2.1 %; EOS ABS # 0.17 K/uL (0-0.5); HEMATOCRIT 39.2 % (37-47); HEMOGLOBIN 12.6 g/dL (12.0-16.0); IG# 0.02 K/uL (0.00-0.02); LYMPH % 25.9 %; LYMPH ABS # 2.11 K/uL (1.2-3.4); MEAN CELL VOLUME 92.9 fL (80-100); MEAN CORPUSCULAR HEMOGLOBIN 29.9 pg (25-34); MEAN CORPUSCULAR HGB CONC 32.1 g/dl (32-36); MEAN PLATELET VOLUME 9.3 fL (7.4-10.4); MONO % 11.1 %; NEUT % 60.3 %; NEUT ABS # 4.91 K/uL (1.4-6.5); PLATELET COUNT 268 K/uL (130-400); RED CELL DISTRIBUTION WIDTH CV 15.8 % (11.5-14.5); RED CELL DISTRIBUTION WIDTH SD 53.7 fL (36.4-46.3); WHITE BLOOD COUNT 8.14 K/uL (4.8-10.8)
[2018-04-11 18:46] LABS: PTT PATIENT 25.4 SECONDS (21.0-31.0)
[2018-04-11 18:52] LABS: ALBUMIN 3.4 gm/dl (3.4-5.0); BLOOD UREA NITROGEN 14 mg/dl (7-18); CALCIUM 8.8 mg/dl (8.5-10.1); CARBON DIOXIDE 21 mmol/L (21-32); GLUCOSE 91 mg/dl (70-99); POTASSIUM 3.7 mmol/L (3.5-5.1); SODIUM 137 mmol/L (136-145)
[2018-04-12 06:33] LABS: HEMOGLOBIN A1C 5.8 % (4.5-5.6)
== END | disposition home or self-care (01) ==
LOC: C.LABMFLN 15:05
PROVIDERS: ATTEND Physician Assistant Medical
DX: Z01.818 Encounter for other preprocedural examination (principal); Z01.810 Encounter for preprocedural cardiovascular examination; Z01.812 Encounter for preprocedural laboratory examination

== ENCOUNTER 2018-04-21 06:48 | Inpatient (IN) | payer OTHER, BC ==
[2018-04-04 15:55] VITALS: BMI 37.0
--- NOTE | 2018-04-20 11:22 | HISTORY & PHYSICAL EXAMINATION ---
DATE OF ADMISSION: 04/21/2018 CHIEF COMPLAINT: Left knee pain. HISTORY OF PRESENT ILLNESS: The patient is a 62-year-old female with known severe osteoarthritis about her left knee. She is about 3 months status post right TKA, which has done real well. She continues to have ongoing pain and disability with her left knee and now desires to proceed with left total knee arthroplasty as well. PAST MEDICAL HISTORY: Hypertension, depression, osteoarthritis. PAST SURGICAL HISTORY: Right knee replacement as above. MEDICATIONS: Metoprolol 25 mg daily. ALLERGIES: PENICILLIN. SOCIAL HISTORY AND REVIEW OF SYSTEMS: Noncontributory. PHYSICAL EXAMINATION: GENERAL: Well-nourished, well-developed female who appears her stated age. HEENT: Normocephalic, atraumatic. Extraocular movements intact. Oropharynx pink and moist. NECK: Supple without adenopathy. LUNGS: Clear to auscultation bilaterally. HEART: Regular rate and rhythm. ABDOMEN: Soft, nontender, nondistended, obese. EXTREMITIES: The upper extremities within normal limits. The left knee has a varus alignment. She complains primarily of medial compartment pain. Her range of motion is from 0-125 degrees. X-RAYS: X-rays were reviewed. She has a varus aligned knee. She has bone on bone arthritis of the medial compartment with large medial osteophytes. There is irregularity along the medial femoral condyle. ASSESSMENT: End-stage degenerative joint disease, left knee. PLAN: Risks versus benefits were discussed, consent was obtained. We will proceed with left total knee arthroplasty as indicated. FAVIOLA
[~2018-04-21] VITALS: Ht 162.6 cm; Wt 99.1 kg
[2018-04-21] VITALS (8 sets, daily range): BP systolic 115–189; BP diastolic 69–100; PULSE 69–87; TEMP 36.3–36.9; O2SAT 95–98; Ht 162.6 cm; Wt 99.1 kg
[~2018-04-21 06:48] MED LIST changes: +ACETAMINOPHEN 500 MG TAB PO SCH; -ASPCH81X PO; +BUPIVACAINE 0.25% 30 ML VIAL ONE; +BUPIVACAINE 0.5 % 5 MG/1 ML PF 10ML VIAL ONE; +CLINDAMYCIN 600 MG/54 ML D5W 54 ML IV SCH; +CeleBREX 200 MG CAP PO SCH; +DEXAMETHASONE 4 MG TAB PO SCH; +FAMOTIDINE 20 MG TAB PO SCH; +GABAPENTIN 600 MG PO SCH; +LACTATED RINGER'S 1000ML 1,000 ML IV SCH; +LACTATED RINGER'S 1000ML 500 ML IV SCH; +OXYCODONE HCL 10 MG TABCR (OXYCONTIN) PO SCH; +ROPIVACAINE 5MG/ML 30 ML 150 MG, BUPIVACAINE 0.5% MPF INJ 30 ML, EpINEphrine HCL INJ 0.... INFIL SCH
[2018-04-21] MEDS ORDERED: ASPCH81X PO (07:04)
[2018-04-21] MEDS ORDERED: MIDAZOLAM HCL 1 MG/ML 2ML VIAL ONE ×2 (08:05)
[2018-04-21] MEDS ORDERED: FENTANYL CITRATE INJ 50 MCG/1 ML 2 ML VIAL ONE (08:06)
[2018-04-21] MEDS ORDERED: ORTHO JOINT ANESTHETIC ONE (08:50)
[2018-04-21] MEDS ORDERED: POVIDONE-IODINE OP SOLN 30 ML BTL ONE (08:50)
[2018-04-21] MEDS ORDERED: BACITRACIN 50000 UNIT VIAL ONE (08:50)
[2018-04-21] MEDS: TRANEXAMIC ACID INJ 1,000 MG x 2 Bags IV SCH ×4 (08:54→12:19)
--- NOTE | 2018-04-21 09:09 | History & Physical Bridge Note ---
H&P Re-Evaluation Bridge Note: I have examined the patient, reviewed the History & Physical and in the interval since the performance of the History & Physical I have noted the following changes of clinical significance: No changes notedLeft is the correct side
[2018-04-21] MEDS ORDERED: EpHEDrine SULFATE 50MG/5ML SYR ONE (09:44)
[2018-04-21] MEDS ORDERED: PROPOFOL IV EMULSION 10 MG/ML 20 ML VIAL ONE ×2 (09:44→10:01)
[2018-04-21] MEDS ORDERED: LIDOCAINE HCL 2% 2 ML VIAL (20MG/ML) ONE (09:44)
[2018-04-21] MEDS ORDERED: ONDANSETRON INJ 2 MG/ML 2 ML VIAL ONE (09:44)
[2018-04-21] MEDS ORDERED: MoRPHine SULFATE 10 MG/ML CARP/VIAL IV PRN (09:45)
[2018-04-21] MEDS ORDERED: KETOROLAC TROMETHAMINE 30 MG/ML VIAL IV. PRN (09:45)
[2018-04-21] MEDS ORDERED: ATROPINE SULFATE 0.1 MG/ML 5ML SYR IV PRN (09:45)
[2018-04-21] MEDS ORDERED: ONDANSETRON INJ 2 MG/ML 2 ML VIAL IV PRN ×2 (09:45→11:00)
[2018-04-21] MEDS ORDERED: PHENYLEPHRINE 100MCG/ML 5ML SYR IV PRN (09:45)
[2018-04-21] MEDS ORDERED: EpHEDrine SULFATE INJ 50 MG/ML AMP IV PRN (09:45)
--- NOTE | 2018-04-21 10:16 | [facility] Post Operative Brief Note ---
Immediate Operative Summary Operative Date Apr 21, 2018. Pre-Operative Diagnosis Left knee degenerative joint disease Post-Operative Diagnosis Left knee degenerative joint disease Procedure(s) Performed Left total knee arthroplasty Surgeon Dr. Villalta Ops Manager Surgeon(s) Anil Hansen PA-C Estimated Blood Loss 10cc Findings Consistent with Post-Op Diagnosis Specimens A. Left knee bone and tissue Drains None Anesthesia Type MAC Spinal Regional Complication(s) none Disposition Accompanied Pt To Recover: no Disposition: Recovery Room / PACU Overlapping Procedure I was present for: the critical portions of procedure. I was immediately available: during the entire case
[2018-04-21] MEDS ORDERED: CEFAZOLIN IV 2,000 MG in DEXTROSE 5% 50ML 50 ML IV SCH (11:00)
[2018-04-21] MEDS ORDERED: METOCLOPRAMIDE HCL INJ 5 MG/ML 2 ML VIAL IV PRN (11:00)
[2018-04-21] MEDS ORDERED: ZOLPIDEM TARTRATE 5 MG TAB PO PRN (11:00)
[2018-04-21] MEDS ORDERED: ALUMINUM/MAGNESIUM/SIMETH (MAALOX MAX) 30 ML UDC PO PRN (11:00)
[2018-04-21] MEDS ORDERED: MAGNESIUM HYDROXIDE SUSP 30 ML UDC PO PRN (11:00)
[2018-04-21] MEDS ORDERED: MoRPHine SULFATE 2 MG/ML CARP IV PRN (11:00)
--- NOTE | 2018-04-21 11:10 | DIAGNOSTIC IMAGING REPORT ---
LEFT KNEE 2 VIEWS History: Left total knee arthroplasty. Degenerative arthritis. Postop. FINDINGS: The patient is status post a left total knee arthroplasty. The hardware is intact. No fracture or dislocation. Surgical drains are in place. IMPRESSION: Left total knee arthroplasty. No evidence for hardware complication. Electronically signed by: Yannick Pruitt M.D. 04/21/2018 11:08 AM Dictated Date/Time: 04/21/2018 11:05 AM
--- NOTE | 2018-04-21 13:14 | Anesthesiology Progress Note ---
Anesthesia Post Op Note Date & Time Apr 21, 2018 at 13:14 Vital Signs Pain Intensity: 0.0 Vital Signs Past 12 Hours Date Time Temp Pulse Resp B/P (MAP) Pulse Ox O2 Delivery O2 Flow Rate FiO2 04/21/18 12:46 36.9 87 17 127/79 (95) 95 Room Air 04/21/18 12:25 36.5 85 18 123/76 (92) 97 Room Air 04/21/18 11:50 Nasal Cannula 2.0 04/21/18 11:50 36.9 81 17 120/69 (86) 98 Nasal Cannula 2.0 04/21/18 11:50 Nasal Cannula 2.0 04/21/18 11:40 36.2 80 12 121/64 97 Nasal Cannula 2 04/21/18 11:30 74 13 123/60 95 Nasal Cannula 2 04/21/18 11:20 76 13 123/62 95 Nasal Cannula 2 04/21/18 11:10 79 14 129/67 94 Nasal Cannula 2 04/21/18 11:00 84 14 109/53 96 Nasal Cannula 2 04/21/18 10:52 36.1 82 20 104/64 95 Nasal Cannula 2 04/21/18 07:08 36.6 81 18 189/100 97 Room Air Notes Mental Status: alert / awake / arousable, participated in evaluation Pt Amnestic to Procedure: Yes Nausea / Vomiting: adequately controlled Pain: adequately controlled Airway Patency, RR, SpO2: stable & adequate BP & HR: stable & adequate Hydration State: stable & adequate Anesthetic Complications: no major complications apparent
[2018-04-21] MEDS ORDERED: NURSING VERBAL MED ORDER ONE (13:15)
[2018-04-21] MEDS: ACETAMINOPHEN 500 MG TAB PO SCH ×2 (13:43→21:49)
[2018-04-21] MEDS: KETOROLAC TROMETHAMINE 30 MG/ML VIAL IV. SCH ×2 (13:44→20:35)
[2018-04-21] MEDS: FERROUS GLUCONATE 324 MG TAB PO SCH (17:43)
[2018-04-21] MEDS: CLINDAMYCIN IV 600 MG in DEXTROSE 5% 50ML 50 ML IV SCH (18:00)
[2018-04-21] MEDS: D5W AND 1/2NSS + 20MEQ KCL 1,000 ML IV SCH (18:00)
[2018-04-21] MEDS: DOCUSATE SODIUM 100 MG CAP PO SCH (20:35)
[2018-04-21] MEDS: METOPROLOL TARTRATE 25 MG TAB PO SCH (20:36)
[2018-04-21] MEDS: ASPIRIN 81 MG ECTAB PO SCH (20:36)
[2018-04-22 00:10] VITALS: BP 154/89; PULSE 70; TEMP 36.6; O2SAT 98
[2018-04-22] MEDS: CLINDAMYCIN IV 600 MG in DEXTROSE 5% 50ML 50 ML IV SCH (02:19)
[2018-04-22] MEDS: KETOROLAC TROMETHAMINE 30 MG/ML VIAL IV. SCH ×2 (02:20→07:48)
[2018-04-22] MEDS: D5W AND 1/2NSS + 20MEQ KCL 1,000 ML IV SCH (02:54)
[2018-04-22 03:10] VITALS: BP 147/85; PULSE 68; TEMP 36.5; O2SAT 98
[2018-04-22] MEDS: ACETAMINOPHEN 500 MG TAB PO SCH ×3 (06:06→20:58)
[2018-04-22 06:26] LABS: HEMATOCRIT 33.8 % (37-47); HEMOGLOBIN 10.9 g/dL (12.0-16.0); MEAN CELL VOLUME 92.9 fL (80-100); MEAN CORPUSCULAR HEMOGLOBIN 29.9 pg (25-34); MEAN CORPUSCULAR HGB CONC 32.2 g/dl (32-36); MEAN PLATELET VOLUME 9.1 fL (7.4-10.4); PLATELET COUNT 254 K/uL (130-400); RED CELL DISTRIBUTION WIDTH SD 54.4 fL (36.4-46.3); WHITE BLOOD COUNT 15.58 K/uL (4.8-10.8)
[2018-04-22 07:02] LABS: CALCIUM 8.9 mg/dl (8.5-10.1); CREATININE 0.87 mg/dl (0.60-1.20); POTASSIUM 4.3 mmol/L (3.5-5.1)
[2018-04-22] MEDS ORDERED: DEXAMETHASONE INJ 10 MG in SYRINGE 0 ML IV SCH (07:30)
[2018-04-22 08:03] VITALS: BP 153/77; PULSE 65; TEMP 36.6; O2SAT 99
[2018-04-22] MEDS: PANTOprazole SOD 40 MG TAB PO SCH (08:23)
[2018-04-22] MEDS: MULTIVITAMIN TAB PO SCH (08:24)
[2018-04-22] MEDS: ASPIRIN 81 MG ECTAB PO SCH ×2 (08:24→20:56)
[2018-04-22] MEDS: DOCUSATE SODIUM 100 MG CAP PO SCH ×2 (08:24→20:56)
[2018-04-22] MEDS: FERROUS GLUCONATE 324 MG TAB PO SCH ×3 (08:24→17:35)
[2018-04-22 10:53] VITALS: BP 144/83; PULSE 70; TEMP 36.4; O2SAT 100
[2018-04-22 15:17] VITALS: BP 156/72; PULSE 72; TEMP 36.6; O2SAT 98
[2018-04-22] MEDS: OXYCODONE HCL IR 5 MG TAB (IMMEDIATE RELEASE) PO PRN (15:36)
[2018-04-22] MEDS: METOPROLOL TARTRATE 25 MG TAB PO SCH (20:57)
[2018-04-22] MEDS: CeleBREX 200 MG CAP PO SCH (20:57)
[2018-04-22 23:05] VITALS: BP 130/78; PULSE 64; TEMP 36.6; O2SAT 99
[2018-04-23] MEDS: ACETAMINOPHEN 500 MG TAB PO SCH (06:11)
[2018-04-23 06:35] VITALS: BP 161/109; PULSE 66; TEMP 36.6; O2SAT 98
[2018-04-23] MEDS: PANTOprazole SOD 40 MG TAB PO SCH (07:20)
[2018-04-23] MEDS: OXYCODONE HCL IR 5 MG TAB (IMMEDIATE RELEASE) PO PRN (07:20)
[2018-04-23] MEDS: FERROUS GLUCONATE 324 MG TAB PO SCH (07:20)
[2018-04-23] MEDS: MULTIVITAMIN TAB PO SCH (07:20)
[2018-04-23] MEDS: DOCUSATE SODIUM 100 MG CAP PO SCH (07:20)
[2018-04-23] MEDS: CeleBREX 200 MG CAP PO SCH (07:21)
[2018-04-23 08:37] VITALS: BP 113/67
[2018-04-23 08:58] VITALS: BP 108/68
[2018-04-23] MEDS: ASPIRIN 81 MG ECTAB PO SCH (09:17)
--- NOTE | 2018-04-23 09:46 | Orthopedic Progress Note ---
Orthopedic Progress Note Date of Service Apr 23, 2018. Subjective Post OP Day: 2 Reports: feeling well, pain controlled w PO medications, Denies: chest pain, SOB , nausea / vomiting, light headedness, calf pain Objective calves soft nontender, N/V intact, capillary refill less than 2 sec., dressing C /D/I (silverlon), A&O x3, toes mobile Date Time Temp Pulse Resp B/P (MAP) Pulse Ox O2 Delivery O2 Flow Rate FiO2 04/23/18 07:14 Room Air 04/23/18 06:35 36.6 66 17 161/109 (126) 98 Room Air 04/22/18 23:37 Room Air 04/22/18 23:05 36.6 64 16 130/78 (95) 99 Room Air 04/22/18 15:39 Room Air 04/22/18 15:17 36.6 72 17 156/72 (100) 98 Room Air 04/22/18 10:53 36.4 70 16 144/83 (103) 100 Room Air Assessment & Plan Assessment: POD #2 Left TKA Plan: Plan for HH today. ASA/PARVIZ PT Inhouse Planning Pain Management: PO Tylenol, Oxy IR DVT Prophylaxis: TEDs, SCDs, ASA Discharge Planning Discharge Planning: home with home health Pain Management: Oxy IR DVT Prophylaxis: TEDs, ASA Therapy: Physical Therapy
[2018-04-23] MEDS ORDERED: ONDA8TAB12 PO (09:49)
[2018-04-23] MEDS ORDERED: ACET-24 PO (09:49)
[2018-04-23] MEDS ORDERED: FRRG PO (09:49)
[2018-04-23] MEDS ORDERED: ASPI-461 PO (09:49)
[2018-04-23] MEDS ORDERED: RXC5 PO (09:49)
[2018-04-23] MEDS ORDERED: CLB200 PO (09:49)
--- NOTE | 2018-04-23 09:54 | Discharge Instructions ---
Discharge Instructions Date of Service Apr 23, 2018. Admission Reason for Admission: Left Knee Osteoarthritis Discharge Discharge Diagnosis / Problem: Left TKA Discharge Goals Goal(s): Decrease discomfort, Improve function, Increase independence, Therapeutic intervention Activity Recommendations Activity Limitations: per Instructions/Follow-up section . Instructions / Follow-Up Instructions / Follow-Up ACTIVITY RECOMMENDATIONS: SELF CARE INSTRUCTIONS AFTER TOTAL KNEE REPLACEMENT A. You may need to continue a physical therapy program after discharge from the hospital. There are several options available to you. Your doctor will assist you in selecting the best one for you. 1. An out-patient facility 2 to 3 times a week for therapy or home therapy. 2. Continue working on all exercises taught to you in the hospital. Your goals should be to increase bending of your knee to 90 degrees and beyond and to fully straighten your knee. B. You may progress at your own pace from walking with a walker or crutches to a cane; then to no assistive devices. C. Make walking a part of your daily routine. Be up as much as comfortable with rest periods throughout the day. Rest with leg elevation is very important. Use the ice wrap frequently for the first 3-4 weeks. D. There are no restrictions on activities. You may ride in a car, shop, participate in corporate services manager and all social activities. E. Wear the long elastic stockings (PARVIZ hose) 20 hours a day for 2 weeks after surgery. They can be removed several times a day for laundering and for a bath. F. You may shower, no tub baths until cleared by your doctor. SPECIAL CARE INSTRUCTIONS: VERY IMPORTANT TO READ AND REVIEW A. There are a few signs you need to watch for after you are home. Call [facility] if you notice any of the followin. Increased severe knee pain. Some pain is expected especially when you exercise. 2. Increased swelling in your leg or knee; pain or swelling of the calf muscle in either lower leg. 3. Any fluid drainage from the incision. 4. Shortness of breath or chest pain. B. Please call [facility] at if you have any concerns or questions about your operation or recovery. The doctor or his nurse will return your call promptly. C. You must take antibiotics before dental work, bladder, bowel or other surgery. Your doctor will provide you with a permanent care to carry describing this precaution. IMPORTANT: * REMEMBER TO TAKE ASPIRIN, 81 MG, TWICE DAILY FOR 4 WEEKS UNLESS OTHERWISE DIRECTED. THIS IS YOUR BLOOD THINNER. * HIGH RISK PATIENTS MAY BE PRESCRIBED A STRONGER BLOOD THINNER. THIS WILL BE PROVIDED AT DISCHARGE. * CALL IF INCREASED PAIN, REDNESS, DRAINAGE OR FEVER GREATER THAT 101. * WEAR PARVIZ HOSE 20 HOURS PER DAY FOR 2 WEEKS. * YOU MAY HAVE A LARGE BAND-AID LIKE DRESSING (SILVERON). THIS WILL REMAIN ON YOUR INCISION FOR 7 DAYS, THEN CAN BE REMOVED. IF INCISION IS LEAKING THROUGH DRESSING, CALL THE OFFICE . FOLLOW UP VISIT: If appointment is not already scheduled: Please call [facility] to make a follow-up appointment for 2 weeks after your surgery at . Current Hospital Diet Patient's current hospital diet: Regular Diet Discharge Diet Recommended Diet: Regular Diet Procedures Procedures Performed: Left total knee arthroplasty Pending Studies Studies pending at discharge: no Laboratory Results Hemoglobin A1c Test 04/11/18 15:07 Range/Units Estimated Average Glucose 120 mg/dl Hemoglobin A1c 5.8 H 4.5-5.6 % Medical Emergencies . Who to Call and When: Medical Emergencies: If at any time you feel your situation is an emergency, please call [phone] immediately. . Non-Emergent Contact Non-Emergency issues call your: Primary Care Provider . "Provider Documentation" section prepared by Kathy Lee. . [place] Drug Monitoring Program Search Results: patient reviewed within database, no issues identified
[2018-04-23 10:12] VITALS: BP 113/67; PULSE 66; TEMP 36.6; O2SAT 98
[2018-05-04] MEDS ORDERED: RXC5 PO (07:34)
--- NOTE | 2018-05-04 12:29 | DISCHARGE SUMMARY ---
CHIEF COMPLAINT: Left knee pain. Please see complete history and physical examination. HOSPITAL COURSE: Patient underwent left total knee arthroplasty without complication. She tolerated the procedure well and was discharged to recovery room in stable condition. Her postoperative course was relatively uneventful. Her postoperative pain was reasonably well controlled with a combination of spinal anesthesia, adductor canal block, intraoperative joint injection, IV and oral pain medications. She was started on aspirin for DVT prophylaxis. She also utilized PARVIZ stockings and SCDs for additional prophylaxis. Her H and H were stable and did not require transfusion. Her surgical drain was discontinued by postoperative day 2. Her surgical dressing will remain in place for approximately 7 days postoperative. She tolerated postop physical therapy reasonably well, and she was bending her knee and ambulating appropriately. She was discharged home on postop day 2. She will continue her physical therapy as an outpatient. She will continue her aspirin for DVT prophylaxis and follow up in our office in approximately 10-14 days for initial postop evaluation.
== END 2018-04-23 12:29 | disposition home or self-care (01) | DRG 470 ==
LOC: C.ACU 06:48 → C.3E 08:59 → ENRESERV 11:08
PROC: 0SRD0J9 Replacement of Left Knee Joint with Synthetic Substitute, Cemented, Open Approach (ICD-10-PCS; principal; 2018-04-21 09:30)
DX: M17.12 Unilateral primary osteoarthritis, left knee (principal); Z96.651 Presence of right artificial knee joint; I10 Essential (primary) hypertension; F32.9 Major depressive disorder, single episode, unspecified; Z88.0 Allergy status to penicillin

== ENCOUNTER 2019-01-19 11:16 | Inpatient (IN) ==
[2019-01-19] MEDS ORDERED: ONDANSETRON INJ 2 MG/ML 2 ML VIAL IV PRN (13:13)
[2019-01-19] MEDS ORDERED: ACETAMINOPHEN 325 MG TAB PO PRN (13:13)
[2019-01-19] MEDS ORDERED: ALUMINUM/MAGNESIUM SUSP 30 ML UDC PO PRN (13:13)
[2019-01-19] MEDS ORDERED: OXYCODONE HCL IR 5 MG TAB (IMMEDIATE RELEASE) PO PRN (13:23)
[2019-01-19] MEDS ORDERED: GENTAMICIN CONSULT ACTIVE PRN (13:23)
[2019-01-19] MEDS ORDERED: VANCOMYCIN CONSULT ACTIVE PRN (13:23)
[2019-01-19] MEDS ORDERED: HYDROmorphone INJ 0.5 MG/0.5 ML SYR IV PRN (13:23)
--- NOTE | 2019-01-19 14:14 | History and Physical Report ---
DATE OF ADMISSION: 01/19/2019 CHIEF COMPLAINT: Pain in left knee. HISTORY OF PRESENT ILLNESS: The patient is a 63-year-old white female known to our practice who is status post left total knee arthroplasty in April of 2018. Later that year, the patient had fallen and dehisced her wound, and she underwent an irrigation and debridement of that left wound by Dr. Meade in May of 2018. She states since that time she has had pain pretty much in the knee but has been able to get around. She states that the knee is swollen off and on and had not really relented as far as her pain. She again was able to get around and was not inhibiting her daily activities to a huge extent; however, it was troublesome. She came back in for a recheck of both of her knees since she had a right one done as well in 2018. At that time, she was seen by Anil Hansen PA-C, and x-rays were taken. It was noted that she had x-ray changes on her left knee, noting some bony deterioration around the prosthesis. Aspirations were obtained and sent to the hospital on 01/13/2019. This came back showing 2 types of Enterococcus and 1 type of [address]obacter. With Dr. Villalta being not in the office at this point in time, the case was discussed with Dr. Sandoval, and after seeing x-rays and reviewing her aspiration, it was felt she would be needing to go through an explant of her hardware and implantation of antibiotic spacer. This was discussed with the patient in detail, and she was thusly admitted today for the above-noted surgery. Currently, she remains comfortable and has no overt complaints besides left knee pain. She denies any recent fevers, chills, or flu or cold-like symptoms. Plans will be to have medicine service see her for preoperative clearance and also have infectious disease consulted for this stay. PAST MEDICAL HISTORY: Hypertension, obesity, osteoarthritis, depression. Denies diabetes mellitus, tuberculosis, hepatitis, COPD, rheumatic fever. PAST SURGICAL HISTORY: Bilateral total knee arthroplasty in the past. FAMILY HISTORY: Lung cancer. SOCIAL HISTORY: The patient is nonsmoker, who drinks alcohol socially. She states that she will have 4-5 beers up to 3 times a week. MEDICATIONS: Lopressor 25 mg p.o. at bedtime, Aleve 200 mg p.o. p.r.n. ALLERGIES: PENICILLINS AND CITRIC ACID OR ACIDIC FOODS, which cause sores in her mouth. REVIEW OF SYSTEMS: No recent flu or cold-like symptoms. No increased cough or sputum production. No fevers or chills. She does state that she does have night sweats due to menopause. She does not have any history of hemoptysis. No chest pressure, chest pain, irregular heartbeat. Denies abdominal pain, unusual nausea, vomiting, or diarrhea. No melena, hematochezia, or hematemesis. Denies burning on urination, hematuria, pyuria, dysuria, or renal calculi. No history of CVA, TIA, seizure disorder, or migraine headache. PHYSICAL EXAMINATION: GENERAL: The patient is a well-developed, well-nourished white female who is alert and oriented x3, in no acute distress, pleasant and cooperative. SKIN: Warm and dry. Turgor is good. HEENT: Head is normocephalic, atraumatic. There is no scleral icterus or injection. Nasal airway is patent. Oral mucosa is pink and moist. NECK: Supple. HEART: Regular rate and rhythm without murmurs. LUNGS: Clear to auscultation without rales, rhonchi, or wheezes. ABDOMEN: Soft, round, and nontender. Bowel sounds are present x4. GENITALIA AND RECTAL: Not performed at this time. EXTREMITIES: On examination of the left lower extremity, she has a well-healed scar from previous surgeries. The knee does have a moderate effusion and is somewhat warm to the touch. There is no major erythema noted, and she actually has good range of motion of the knee at this time without crepitus of 0 to approximately 100 degrees. She does not complain of any pain in her left hip or ankle, but she does state that there is pain with range of motion and worse a little bit with her ambulation. Right lower extremity shows a well-healed scar from previous right TKA without effusion or erythema and is nontender. She has good range of motion of the right knee as well as ankle and hip. Upper extremities are unaffected at this time and are nontender at the shoulders, elbows, and wrists with good range of motion. She denies neck pain at this time on palpation and has good range of motion of the neck. Denies thoracic and low back pain. Calves were soft, nontender. Pulses are equal bilaterally of the upper extremities. Neurovascularly, she is intact. There is no gross motor or sensory loss seen at this time. ASSESSMENT: Left infected total knee arthroplasty. PLAN: We will consult medicine service for preoperative medical clearance. We will consult ID service to follow along with the patient during her stay and make changes to antibiotics as needed. Plans will be for taking the patient to the OR tomorrow for explant of hardware in the left knee and implantation of antibiotic spacer. The patient was seen and examined, agree with above assessment plan I have indicated the patient for explant left total knee arthroplasty, I&D and placement of antibiotic cement spacer. Risk benefits and complications of the procedure were explained to the patient in detail which include however not limited to infections, blood clots, acute blood loss, injury to surrounding nerves, bone, vessels, soft tissue, arthrofibrosis, chronic pain, need for repeat surgery, loss of limb and loss of life. Patient was to proceed with surgical intervention at this time and informed consent was obtained. FAVIOLA
[2019-01-19 14:35] LABS: Partial Thromboplastin Time 26.2 Seconds (21.0-31.0); Prothrombin Time 10.7 Seconds (9.0-12.0)
[2019-01-19 14:38] LABS: Albumin Level 3.2 gm/dl (3.4-5.0); BUN Creatinine Ratio 16.3 (10-20); Calcium 9.6 mg/dl (8.5-10.1); Creatinine Clr Calc Pharmacy 87.5 ml/min; Est GFR (Non-African American) 89.8; Potassium 4.1 mmol/L (3.5-5.1)
[2019-01-19 14:40] LABS: Albumin Globulin Ratio 0.5 (0.9-2); Bilirubin,Total 0.3 mg/dl (0.2-1); Total Protein 9.2 gm/dl (6.4-8.2)
[2019-01-19 14:41] LABS: Basophils # (auto) 0.04 K/uL (0-0.2); Basophils % (auto) 0.5 %; Eosinophils # (auto) 0.07 K/uL (0-0.5); Eosinophils % (auto) 0.9 %; Hematocrit (blood only) 34.8 % (37-47); Hemoglobin 11.5 g/dL (12.0-16.0); Immature Granulocytes # (auto) 0.03 K/uL (0.00-0.02); Immature Granulocytes % (auto) 0.4 %; Lymphocytes # (auto) 1.21 K/uL (1.2-3.4); Lymphocytes % (auto) 16.3 %; Mean Corpuscular Volume 77.2 fL (80-100); Mean Platelet Volume 8.2 fL (7.4-10.4); Monocytes # (auto) 0.75 K/uL (0.11-0.59); Monocytes % (auto) 10.1 %; Neutrophils # (auto) 5.33 K/uL (1.4-6.5); Neutrophils % (auto) 71.8 %; Platelet Count 409 K/uL (130-400); RDW Coefficient of Variation 18.6 % (11.5-14.5); RDW Standard Deviation 52.8 fL (36.4-46.3); Red Blood Count 4.51 M/uL (4.2-5.4); White Blood Count 7.43 K/uL (4.8-10.8)
[2019-01-19] MEDS ORDERED: VANCOMYCIN HCL 2,250 MG in SODIUM CHLORIDE 0.9% 500 ML IV ONE (15:00)
--- NOTE | 2019-01-19 15:15 | Pharmacy Report ---
Pharmacy Abx Initial Consult - Date of Service January 19, 2019 - Pharmacy Dosing Scope Date of Consult: 01/19/19 Consultation requested by: [facility] is consulted to initiate Vancomycin and Getamicin IV dosing therapy, order appropriate labs and adjust drug dose/frequency. - Subjective The patient is a 63 year old F admitted on 01/19/19 12:35 with left infected TKA. Plan for patient to go to OR tomorrow for explant of hardware in the left knee and implantation of antibiotic spacer. - Objective Height: 5 ft 4 in Weight: 88.9 kg Vital Signs (Past 12hrs): Vital Signs Temp Pulse Pulse Pulse Resp BP BP 01/19/19 14:59 36.7 C 80 18 165/84 H 01/19/19 13:43 168/88 H 01/19/19 13:11 36.7 C 99 H 101 H 18 195/97 H 192/97 H Pulse Ox 01/19/19 14:59 100 01/19/19 13:43 01/19/19 13:11 97 Lab Results (24hrs): Laboratory Tests (24 Hours) 01/19/19 01/19/19 13:49 13:49 WBC 7.43 Neut # (Auto) 5.33 Creatinine 0.72 Est Cr Clr Drug Dosing 87.5 Micro Results: 01/19/19 14:33 Aerobic Blood Culture - Pending Blood Anaerobic Blood Culture - Pending 01/19/19 14:50 Aerobic Blood Culture - Pending Blood Anaerobic Blood Culture - Pending Microbiology 01/13/19 Unknown Knee,Left Gram Stain - Final 01/13/19 Unknown Knee,Left Joint Fluid Culture - Final Enterococcus faecalis Enterococcus faecalis#2 Enterobacter cloacae - Assessment & Plan Assessment 63 year old F admitted with infected TKA growing Enterobacter and enterococcus faecalis Plan IV Vancomycin & Gentamicin for treatment of infected TKA growing Enterobacter and enterococcus faecalis Plan for patient to go to OR tomorrow for explant of hardware in the left knee and implantation of antibiotic spacer. Vancomycin IV * Estimated PK Parameters: Vd 0.7 L/kg, Alcides 0.077 hr-1, t1/2 9.9hr * Loading dose: 2250 mg (25 mg/kg) * Maintenance dose: 1500 mg IV (16.9 mg/kg) every 12 hours * Goal trough level for osteomyelitis : 15 to 20 mcg/mL * Trough level ordered for 01/21/19 Gentamicin * Patient meets criteria for extended-interval aminoglycoside dosing per the [facility] nomogram * Dose: 480 mg (7 mg/kg) IV every 24 hours * Dosage based on adjusted body weight for patient, weighing > 120% of ideal body weight. * Random level ordered for 6-14 hours after the start of the infusion to ensure dosing interval is appropriate. * 0400 on 01/20 Pharmacy will continue to follow and will adjust dose/frequency as necessary. Thank you.
--- NOTE | 2019-01-19 15:42 | XRay Report ---
XR chest 2V routine CLINICAL HISTORY: Preoperative chest. COMPARISON STUDY: May 02, 2018 FINDINGS: The cardiac and mediastinal contours are normal. There is no evidence of focal pulmonary co nsolidation. There is no evidence of failure. No pleural effusions are visualized.[ A vague opacity w ithin the axillary portion of the left chest is felt to represent a summation. Degenerative changes a re present within the spine. IMPRESSION: No active disease in the chest. Electronically signed by: Ethan Harper M.D. 01/19/2019 3:41 PM
[2019-01-19] MEDS: SODIUM CHLORIDE 0.9% 1000ML 1,000 ML IV SCH (15:59)
[2019-01-19] MEDS ORDERED: GENTAMICIN SULFATE 480 MG in DEXTROSE 5% 100 ML IV SCH (16:00)
--- NOTE | 2019-01-19 16:14 | Consultation ---
Date of Consultation January 19, 2019 Assessment & Plan (1) Infection of prosthetic knee joint: Pt with hx L TKA 04/2018 with subsequent wound dehiscence and wound irrigation. C/O edema and discomfort L knee intermittently. On 01/13/19 pt seen at ortho office and had aspiration which was positive for 2 types of Enterococcus faecalis and 1 type of Enterobacter cloacae. Pt afebrile, vitals stable. No leukocytosis. Normal lactate. Pt without CAD, CHF, TIA/stroke, CKD. DM history. Lower surgical risk for cardiac event -admitted by ortho -vancomycin and gentamicin initially ordered per ortho -ID consult for assistance with antibiotic choices -pending blood cultures -pain management per ortho (2) HTN (hypertension): -continue metoprolol -monitor blood pressure DVT Prophylaxis -SCDs Follows with Lorne Victor PA-C for routine care Pt was seen with Dr Hutchinson See addendum Pt will be followed by Dr Ro starting on 01/20/19. Thank you for this consultation. We will follow the patient with you during their hospital stay. You can reach a member of the [facility] Team 29/03 via pager @ [phone]. Supervising Physician Co-Signing Physician Notes Patient is a 63-year-old female with history of hypertension and other problems so was consulted by orthopedics for management of left TKA infection. Patient reports left knee swelling, pain which is intermittent, worsens with exertion. Patient had knee aspiration and centimeters fluid studies show elevated white blood cell count, cultures on synovial fluid positive for Enterococcus faecalis and Enterobacter. Lactate levels are normal. She denies any erythema, discharge. Patient was started on IV vancomycin and gentamicin as per orthopedics. Infectious disease was consulted. Blood cultures were obtained. Patient admits to be noncompliant with the use of metoprolol. On exam patient is moderately built and nourished, no apparent distress, normocephalic atraumatic, lungs are clear to auscultation, S1-S2, no murmur, abdomen soft nontender, left knee swelling, tender. No pedal edema. Grossly no focal deficits neurologically. Consider switching IV gentamicin to different agent if able given risk for toxicity. Will wait for ID input. I personally reviewed the record. Patient is interviewed and examined at bedside. Patient's care is coordinated with Tonie Truong PA-C. Please refer to the documentation above for details of patient's presentation and for discussion of other issues. History of Present Illness Reason for Consultation: Medical consult, pre-op evaluation Attending Physician: Saurabh Sandoval DO History of Present Illness Pt is 63 y/o F with PMH HTN seen as medical consultation for pre-op assessment as requested by ortho team for infected L TKA. Pt with hx L TKA in 04/[address] Villalta with later wound dehiscence from a fall and had underwent irrigation and debridement. Pt reports that has had some intermittent swelling and having discomfort that has been ongoing. On 01/13/19 pt had been seen at ortho office and had aspiration which was positive for 2 types of Enterococcus faecalis and 1 type of Enterobacter cloacae. Pt denies any noted skin erythema or discharge. Denies fever/chills, diaphoresis, N/V/D/C, MÁRQUEZ, dizziness, syncope, vision changes, neck pain, CP, SOB, orthopnea, palpitations, cough, sore throat, choking, otalgia, rhinorrhea, abdominal pain, paresthesias, extremity weakness, other extremity edema, rashes, urinary symptoms. Denies hx TIA/stroke, DM II, CKD, CAD, CHF. Allergies Allergy/AdvReac Type Severity Reaction Status Date / Time citric acid Allergy Unknown . Unverified 05/02/18 12:46 Penicillins Allergy Unknown UNKNOWN Verified 05/02/18 12:46 orange Allergy Verified 01/19/19 15:16 tomato Allergy Verified 01/19/19 15:16 Unclassified Drugs Allergy Unknown ACIDIC Uncoded 05/02/18 12:46 FOODS-SORES ON MOUTH Home Medications Home Medications Medication Instructions Recorded Confirmed Type metoprolol tartrate 25 mg PO HS 01/19/19 01/19/19 History naproxen sodium [Aleve] 200 mg PO BID PRN 01/19/19 01/19/19 History Patient History Medical History HTN (hypertension) (Chronic) Obesity (Chronic) Anxiety Osteoarthritis Snoring Surgical History Hx of tonsillectomy (Chronic) History of total knee arthroplasty (Chronic) 04/21/2018. SAB with adductor canal block S/P knee surgery washout and poly exchange of left knee. PATIENT DID NOT WANT SPINAL ANESTHESIA SO WAS DONE UNDER GENERAL LMA #4. Social History Preferred Language: Macedonian Communication Ability: Effective Guard Immigration Required: No Beliefs That Will Affect Care: None Current Living Situation: Spouse Other Information That Helps Us Care for You: No Feels Safe at Home: Yes Safety Concerns: Feels Safe At This Time Smoking Status: Never smoker Do You Dip or Chew Tobacco: No Second Hand Exposure: No Tobacco Cessation Education Requested by Patient: No Hx Alcohol Use: Yes Alcohol type: beer Alcohol Intake Frequency Comment: 4 beers three times a week Hx Substance Use: No Review of Systems Review of Systems: All systems reviewed & are unremarkable except as noted in HPI & below Physical Exam Physical Exam: General: no distress, WDWN Head: normocephalic, atraumatic Eyes: conjunctiva non-injected, anicteric ENT: normal inspection external ears, nose, mucous membranes moist Neck: supple, trachea midline Lungs: clear, no respiratory distress, no wheezing/rhonchi/rales CV: RRR, no murmur, no pretibial edema Abd: normal BS, soft, non-tender Ext: no cyanosis, no calf tenderness; R knee: +healed surgical incision anterior knee without discharge, no surrounding erythema, slight warmth, +edema. flexion and extension of knee intact Neuro: A&O x 3, no focal deficits noted, normal affect Skin: warm, dry Results & Data Vital Signs (Past 12 Hours) Vital Signs Temp Pulse Pulse Pulse Resp BP BP 01/19/19 14:59 36.7 C 80 18 165/84 H 01/19/19 13:43 168/88 H 01/19/19 13:11 36.7 C 99 H 101 H 18 195/97 H 192/97 H Pulse Ox 01/19/19 14:59 100 01/19/19 13:43 01/19/19 13:11 97 Laboratory Results Short CBC 01/19/19 Range/Units 13:49 WBC 7.43 (4.8-10.8) K/uL Hgb 11.5 L (12.0-16.0) g/dL Hct 34.8 L (37-47) % Plt Count 409 H (130-400) K/uL BMP 01/19/19 13:49 Sodium 135 L Potassium 4.1 Chloride 104 Carbon Dioxide 28 BUN 12 Creatinine 0.72 Glucose 108 H Calcium 9.6 Liver Function 01/19/19 Range/Units 13:49 Total Bilirubin 0.3 (0.2-1) mg/dl AST 10 L (15-37) U/L ALT 12 (12-78) U/L Alkaline Phosphatase 142 H (45-117) U/L Albumin 3.2 L (3.4-5.0) gm/dl Diagnostic Findings CXR: IMPRESSION: No active disease in the chest. ECG Rate (beats per minute): 93 Rhythm: normal sinus
--- NOTE | 2019-01-19 17:10 | Anesthesiology Consultation ---
Date of Service January 19, 2019 Assessment & Plan (1) Encounter for pre-operative examination: Chart Review Chart Review: Acceptable Risk for Surgery and Patient NOT seen in Pre Admission Testing Consults Requested none History Surgery Operation Date: 01/20/19 12:55 Proposed Procedures p Explant Left Total Knee Insertion Cement Spacer - Saurabh Sandoval DO Height/Weight Height: 5 ft 4 in Weight: 88.9 kg Allergies Allergy/AdvReac Type Severity Reaction Status Date / Time citric acid Allergy Unknown . Unverified 05/02/18 12:46 Penicillins Allergy Unknown UNKNOWN Verified 05/02/18 12:46 orange Allergy Verified 01/19/19 15:16 tomato Allergy Verified 01/19/19 15:16 Unclassified Drugs Allergy Unknown ACIDIC Uncoded 05/02/18 12:46 FOODS-SORES ON MOUTH Medications Home Medications Medication Instructions Recorded Confirmed Last Taken metoprolol tartrate 25 mg PO HS 01/19/19 01/19/19 01/18/19 naproxen sodium [Aleve] 200 mg PO BID PRN 01/19/19 01/19/19 Unknown Active Medications Generic Name Dose Route Start Last Admin Trade Name Freq PRN Reason Stop Dose Admin Sodium Chloride 1,000 mls @ 15 mls/hr 01/19/19 15:00 01/19/19 16:04 Nss 1000ml IV 02/18/19 14:59 0 mls/hr .Q24H CLAUDIO Infusion Vancomycin HCl 2,250 mg/ 545 mls @ 200 mls/hr 01/19/19 15:00 01/19/19 15:59 Sodium Chloride IV 01/19/19 17:43 200 mls/hr TODAY@1500 ONE Administration Past Medical History Medical History HTN (hypertension) (Chronic) Obesity (Chronic) Anxiety Osteoarthritis Snoring Exercise / Class Metabolic Activity II 4-5 Yardwork/Stairs/Walk up hill Past Surgical History Surgical History Hx of tonsillectomy (Chronic) History of total knee arthroplasty (Chronic) 04/21/2018. SAB with adductor canal block S/P knee surgery washout and poly exchange of left knee. PATIENT DID NOT WANT SPINAL ANESTHESIA SO WAS DONE UNDER GENERAL LMA #4. Social History Smoking Status: Never smoker Do You Dip or Chew Tobacco: No Hx Alcohol Use: Yes Alcohol type: beer alcohol intake frequency: other Alcohol Intake Frequency Comment: 6 beers a week Hx Substance Use: No Physical Exam Vital Signs Last Vital Signs Temp 36.7 C 01/19/19 14:59 Pulse 80 01/19/19 14:59 Resp 18 01/19/19 14:59 BP 165/84 H 01/19/19 14:59 Pulse Ox 100 01/19/19 14:59 Testing Laboratory Results 01/19/19 13:49 01/19/19 13:49 01/19/19 01/19/19 13:49 13:50 PT 10.7 INR 1.0 APTT 26.2 Blood Type A Positive Antibody Screen NEGATIVE Electrocardiogram Date: 01/19/19 Findings: + NSR @ (93) Normal sinus rhythm Normal ECG When compared with ECG of 02-MAY-2018 02:44, No significant change was found Chest X-Ray Date: 01/19/19 XR chest 2V routine CLINICAL HISTORY: Preoperative chest. COMPARISON STUDY: May 02, 2018 FINDINGS: The cardiac and mediastinal contours are normal. There is no evidence of focal pulmonary consolidation. There is no evidence of failure. No pleural effusions are visualized.[ A vague opacity within the axillary portion of the left chest is felt to represent a summation. Degenerative changes are present within the spine. IMPRESSION: No active disease in the chest.
--- NOTE | 2019-01-19 17:43 | Infectious Disease Consult ---
Date of Consultation January 19, 2019 Assessment & Plan (1) Infection of prosthetic knee joint: Infected left TKA with enterococcus and Enterobacter. Agree with need for removal of prosthesis and placement of antibiotic spacer. Will require prolonged IV antibiotics. Will change now to vancomycin and ertapenem, may need to adjust to allow for outpatient therapy. Will follow. (2) Infection caused by Enterobacter cloacae: (3) Enterococcal infection: History of Present Illness Reason for Consultation: Infected left TKA Attending Physician: Saurabh Sandoval DO History of Present Illness 63-year-old female hypertension, but recently underwent left knee replacement April 2018. Subsequently suffered a fall with injury to her knee with open wound requiring repeat surgical debridement. Patient continued to have pain and swelling of the knee and was recently seen by orthopedic surgery and x-ray was obtained which showed loosening of the prosthesis. Aspiration of the knee was done which showed evidence of infection with cultures growing enterococcus and Enterobacter. She now was admitted to the hospital for further management, and has been started on vancomycin and gentamicin plans for removal of prosthesis and placement of a spacer tomorrow. She denies any significant fever or chills. Pain currently 2-3 10 in intensity left knee. Allergies Allergy/AdvReac Type Severity Reaction Status Date / Time citric acid Allergy Unknown . Unverified 05/02/18 12:46 Penicillins Allergy Unknown UNKNOWN Verified 05/02/18 12:46 orange Allergy Verified 01/19/19 15:16 tomato Allergy Verified 01/19/19 15:16 Unclassified Drugs Allergy Unknown ACIDIC Uncoded 05/02/18 12:46 FOODS-SORES ON MOUTH Home Medications Home Medications Medication Instructions Recorded Confirmed Type metoprolol tartrate 25 mg PO HS 01/19/19 01/19/19 History naproxen sodium [Aleve] 200 mg PO BID PRN 01/19/19 01/19/19 History Patient History Medical History HTN (hypertension) (Chronic) Obesity (Chronic) Anxiety Osteoarthritis Snoring Surgical History Hx of tonsillectomy (Chronic) History of total knee arthroplasty (Chronic) 04/21/2018. SAB with adductor canal block S/P knee surgery washout and poly exchange of left knee. PATIENT DID NOT WANT SPINAL ANESTHESIA SO WAS DONE UNDER GENERAL LMA #4. Social History Preferred Language: Beninese Communication Ability: Effective Circle Saw Operator Required: No Beliefs That Will Affect Care: None Current Living Situation: Spouse Other Information That Helps Us Care for You: No Feels Safe at Home: Yes Safety Concerns: Feels Safe At This Time Smoking Status: Never smoker Do You Dip or Chew Tobacco: No Second Hand Exposure: No Tobacco Cessation Education Requested by Patient: No Hx Alcohol Use: Yes Alcohol type: beer Alcohol Intake Frequency Comment: 4 beers three times a week Hx Substance Use: No Review of Systems Review of Systems: All systems reviewed & are unremarkable except as noted in HPI & below Physical Exam Constitutional: WD/WN, vitals as above + obese and comfortable; no acute distress Eyes: PERRL, conjunctivae normal, anicteric sclerae ENMT: external ear and nose normal, oropharynx normal Neck: trachea midline, no thyromegaly neck nontender Respiratory: normal respiratory effort, lungs clear to auscultation normal percussion; does not use accessory muscles Cardiovascular: Rate/Rhythm: regular rate and regular rhythm Heart Sounds: normal S1 and normal S2; no gallop, no murmur and no cardiac rub Vessels: normal peripheral pulses; no JVD Gastrointestinal (Abdomen): normal bowel sounds, soft, nontender, no hepatosplenomegaly Musculoskeletal: no cyanosis or clubbing, extremities motor strength 5/5 Spine: thoracic spine normal to inspection and lumbar spine normal to inspection; no cervical spinal tenderness Knee: + knee abnormal to inspection (Left knee swollen, slightly warm) Skin: no rashes, warm and dry normal turgor; no lesions Neurologic: patellar DTR's 2+ bilat, sensation intact no focal motor deficits Psychiatric: A+Ox3, euthymic affect Orientation: cooperative Lymphatic: no cervical or axillary lymphadenopathy no inguinal lymphadenopathy Results & Data Vital Signs (Past 12 Hours) Vital Signs Temp Pulse Pulse Pulse Resp BP BP 01/19/19 14:59 36.7 C 80 18 165/84 H 01/19/19 13:43 168/88 H 01/19/19 13:11 36.7 C 99 H 101 H 18 195/97 H 192/97 H Pulse Ox 01/19/19 14:59 100 01/19/19 13:43 01/19/19 13:11 97 Laboratory Results Short CBC 01/19/19 Range/Units 13:49 WBC 7.43 (4.8-10.8) K/uL Hgb 11.5 L (12.0-16.0) g/dL Hct 34.8 L (37-47) % Plt Count 409 H (130-400) K/uL BMP 01/19/19 13:49 Sodium 135 L Potassium 4.1 Chloride 104 Carbon Dioxide 28 BUN 12 Creatinine 0.72 Glucose 108 H Calcium 9.6 Liver Function 01/19/19 Range/Units 13:49 Total Bilirubin 0.3 (0.2-1) mg/dl AST 10 L (15-37) U/L ALT 12 (12-78) U/L Alkaline Phosphatase 142 H (45-117) U/L Albumin 3.2 L (3.4-5.0) gm/dl Diagnostic Findings L Acct: [id number] Status: DEP CLI : 1955 [facility] [place] Date: 01/13/19 Age: 63 Sex: F Dis Date: Loc: Laboratory [facility] Spec: [id number] Collected: 01/13/19-UNK Received: 01/13/19-[address]: Anil Hansen,P.A. Copy To: Lorne Victor PA-C Source: Knee,Left OV Order: Ordered: Joint Fld Cu/Sm Procedure Result Verified Site Gram Stain Final 01/13/19-1446 Gram Stain Result Few WBCs Seen No Organisms Seen Joint Fluid/Space Culture Final 01/16/19-1229 Organism 1 Enterococcus faecalis Quantity Few Sens Sensitivities to Follow Organism 2 Enterococcus faecalis#2 Quantity Rare Sens No Sensitivities to Follow Organism 3 Enterobacter cloacae Quantity Rare Sens Sensitivities to Follow Identification and susceptibility testing have confirmed the two organisms previously reported are the same organism. No susceptibility results will be generated on the second isolate. E faecalis E cloacae RX M.I.C. RX M.I.C. --- --------- --- --------- Amikacin S <=16 Ampicillin S <=2 Cefepime S <=4 Cefotaxime S <=2 Ceftriaxone S <=1 Ciprofloxacin S <=1 Daptomycin S 2 Ertapenem S <=1 Gentamicin S <=4 Gent Synergy S <=500 Imipenem S <=1 Levofloxacin S <=2 Penicillin S 2 Strep Synergy S <=1000 Tobramycin S <=4 Trimeth/Sulfa S <=2/38 Pip/Tazo S <=16 Vancomycin S 2 Enterococcus faecalis: Positive Combo 33 Streptomycin Synergy Screen S Gentamicin Synergy Screen S S = SENSITIVE I = INTERMEDIATE R = RESISTANT Name: POPPY CHRISTIANSON : 1955 PAGE 1 Printed: 01/19/19 3064 END OF REPORT
[2019-01-19] MEDS: ERTAPENEM SODIUM 1,000 MG in SODIUM CHLORIDE 0.9% 50 ML IV SCH (19:16)
[2019-01-19] MEDS: METOPROLOL TARTRATE 25 MG TAB PO SCH (21:45)
[2019-01-20] MEDS ORDERED: VANCOMYCIN HCL 1,500 MG in SODIUM CHLORIDE 0.9% 500 ML IV SCH (02:00)
[2019-01-20 03:53] LABS: Basophils # (auto) 0.03 K/uL (0-0.2); Basophils % (auto) 0.4 %; Eosinophils # (auto) 0.14 K/uL (0-0.5); Eosinophils % (auto) 1.9 %; Hematocrit (blood only) 31.7 % (37-47); Hemoglobin 10.4 g/dL (12.0-16.0); Immature Granulocytes # (auto) 0.03 K/uL (0.00-0.02); Immature Granulocytes % (auto) 0.4 %; Lymphocytes # (auto) 1.86 K/uL (1.2-3.4); Lymphocytes % (auto) 24.7 %; Mean Corpuscular Hgb Conc 32.8 g/dL (32-36); Mean Corpuscular Volume 76.6 fL (80-100); Mean Platelet Volume 7.9 fL (7.4-10.4); Monocytes # (auto) 0.91 K/uL (0.11-0.59); Monocytes % (auto) 12.1 %; Neutrophils # (auto) 4.55 K/uL (1.4-6.5); Neutrophils % (auto) 60.5 %; Platelet Count 351 K/uL (130-400); RDW Coefficient of Variation 18.5 % (11.5-14.5); RDW Standard Deviation 52.3 fL (36.4-46.3); Red Blood Count 4.14 M/uL (4.2-5.4); White Blood Count 7.52 K/uL (4.8-10.8)
[2019-01-20 04:13] LABS: BUN Creatinine Ratio 18.3 (10-20); Calcium 8.8 mg/dl (8.5-10.1); Creatinine Clr Calc Pharmacy 82.9 ml/min; Est GFR (African American) 97.4; Est GFR (Non-African American) 84.1; Magnesium 1.9 mg/dl (1.8-2.4); Potassium 3.9 mmol/L (3.5-5.1)
[2019-01-20] MEDS ORDERED: BUPIVACAINE 0.5 % 5 MG/1 ML PF 10ML VIAL ONE (07:14)
[2019-01-20] MEDS ORDERED: ROPIVACAINE 0.5% 5 MG/ML 30 ML VIAL ONE (07:14)
[2019-01-20] MEDS ORDERED: EPINEPHrine INJ 1 MG/ML AMP ONE (07:14)
--- NOTE | 2019-01-20 10:26 | Hospitalist Progress Note ---
Date of Service January 20, 2019 Assessment & Plan (1) Infection of prosthetic knee joint: Pt with hx L TKA 04/2018 with subsequent fall and wound dehiscence and wound irrigation/debridement. Pt had been having intermittent edema/pain to L knee. Admitted on 01/19/19 for L TKA infection. On 01/13/19 pt seen at ortho office and had aspiration which was positive for 2 types of Enterococcus faecalis and 1 type of Enterobacter cloacae. -Pt has remained afebrile, vitals stable. No leukocytosis. Initial lactate normal. -ortho plans to take pt to OR for hardware exchange and antibiotic spacer today -vancomycin and gentamicin started on 01/19/19 per ortho, and has been changed to daptomycin and ertapenem per ID -ID consulted, appreciate recommendations -pending blood cultures -pain management per ortho -monitor CBC, BMP (2) HTN (hypertension): -continue metoprolol -monitor blood pressure DVT Prophylaxis -SCDs per ortho Follows with Lorne Victor PA-C for routine care Pt was seen with Dr Ro. See addendum Thank you for this consultation. We will follow the patient with you during their hospital stay. You can reach a member of the [facility] Hospitalist Team 29/03 via pager @ [phone]. Supervising Physician Co-Signing Physician Notes I have seen and examined the patient and have discussed the case with the provider above. I agree with the assessment and plan as stated. I saw the patient in the PACU post-op and she was having some pain in her operative site. She was otherwise doing well and still recovering from anesthesia. Normal heart and lung exam. Thank you for the consultation. We will continue to follow throughout her hospitalization. DO Jayjay Subjective F/U Left TKA infection. Pt seen and examined. Sitting up in bed. Pt reports doing well with minimal left knee pain. Still with knee edema and stiffness. Denies fever/chills, N/V. Pt is to have planned surgery this afternoon with removal of hardware and implantation of antibiotic spacer. Pt tolerating IV antibiotics. Denies MÁRQUEZ, dizziness, CP, SOB, abdominal pain, paresthesias, extremity weakness, rashes, urinary symptoms. Review of Systems Review of Systems: All systems reviewed & are unremarkable except as noted in HPI & below Physical Exam Physical Exam: General: no acute distress, non-ill appearing, WDWN Head: normocephalic, atraumatic Eyes: conjunctiva non-injected, anicteric ENT: normal inspection external ears, nose, mucous membranes moist Neck: supple, trachea midline Lungs: clear, no respiratory distress, no wheezing/rhonchi/rales CV: RRR, no murmur, no pretibial edema Abd: normal BS, soft, non-tender Ext: no cyanosis, no calf tenderness; R knee: +healed surgical incision anterior knee without discharge, no surrounding erythema, +edema. flexion and extension of knee intact, distal pulses intact Neuro: A&O x 3, no focal deficits noted, normal affect Skin: warm, dry Results & Data Vital Signs (Past 12 Hours) Vital Signs Temp Pulse Pulse Resp BP BP Pulse Ox 01/20/19 07:15 36.5 C 71 13 158/78 H 94 01/19/19 23:17 36.8 C 72 16 133/78 95 Laboratory Results Short CBC 01/19/19 01/20/19 Range/Units 13:49 03:42 WBC 7.43 7.52 (4.8-10.8) K/uL Hgb 11.5 L 10.4 L (12.0-16.0) g/dL Hct 34.8 L 31.7 L (37-47) % Plt Count 409 H 351 (130-400) K/uL BMP 01/19/19 01/20/19 13:49 03:42 Sodium 135 L 136 Potassium 4.1 3.9 Chloride 104 105 Carbon Dioxide 28 25 BUN 12 14 Creatinine 0.72 0.76 Glucose 108 H 100 H Calcium 9.6 8.8 Liver Function 01/19/19 Range/Units 13:49 Total Bilirubin 0.3 (0.2-1) mg/dl AST 10 L (15-37) U/L ALT 12 (12-78) U/L Alkaline Phosphatase 142 H (45-117) U/L Albumin 3.2 L (3.4-5.0) gm/dl
[2019-01-20] MEDS: DAPTOmycin 325 MG in SYRINGE 0 ML IV SCH (12:07)
[2019-01-20] MEDS ORDERED: POVIDONE-IODINE OP SOLN 30 ML BTL ONE (12:56)
[2019-01-20] MEDS ORDERED: GENTAMICIN SULFATE 40 MG/ML 2 ML VIAL ONE (12:56)
[2019-01-20] MEDS ORDERED: VANCOMYCIN HCL 1000MG/20ML VIAL ONE (12:57)
[2019-01-20] MEDS ORDERED: BACITRACIN INJ 50,000 UNIT VIAL ONE ×3 (12:57→16:59)
[2019-01-20] MEDS ORDERED: ONDANSETRON INJ 2 MG/ML 2 ML VIAL ONE (13:24)
[2019-01-20] MEDS ORDERED: DEXAMETHASONE SOD INJ 4 MG/ML VIAL ONE (13:24)
[2019-01-20] MEDS ORDERED: PROPOFOL IV EMULSION 10 MG/ML 20 ML VIAL IV ONE (13:24)
[2019-01-20] MEDS ORDERED: LIDOCAINE HCL 2% 2 ML VIAL/AMP(20MG/ML) INFIL ONE (13:24)
[2019-01-20] MEDS ORDERED: MIDAZOLAM HCL 1 MG/ML 2ML VIAL ONE (13:25)
[2019-01-20] MEDS ORDERED: fentaNYL citrate 100 MCG/2 ML VIAL ONE ×4 (13:25→17:14)
--- NOTE | 2019-01-20 13:38 | History & Physical Bridge Note ---
Date of Service January 20, 2019 History & Physical Bridge Note I have examined the patient, reviewed the History & Physical and in the interval since the performance of the History & Physical I have noted the following changes of clinical significance: no changes noted
--- NOTE | 2019-01-20 13:41 | Orthopedic Progress Note ---
Date of Service January 20, 2019 Assessment & Plan (1) Infection of prosthetic knee joint: I have indicated the patient for explant left total knee arthroplasty, I&D and placement of antibiotic cement spacer. The risk benefits procedure were explained the patient in detail which include however not limited to infections, acute blood loss, injury to surrounding nerves, bone, vessels, soft tissue, blood clots, arthrofibrosis, chronic pain, need for repeat surgery, loss of limb and loss of life. The patient wished to proceed with surgery and informed consent was obtained. Patient on standing IV antibiotics will continue per infectious disease Subjective Patient seen in preoperative holding Comfortable, no acute issues overnight, pain controlled. Review of Systems Review of Systems: All systems reviewed & are unremarkable except as noted in HPI & below Constitutional: as per Subjective / HPI Results & Data Vital Signs (Past 12 Hours) Vital Signs Temp Pulse Pulse Resp BP BP Pulse Ox 01/20/19 12:41 36.6 C 84 20 168/91 H 100 01/20/19 11:24 36.3 C L 71 14 145/79 H 96 01/20/19 07:15 36.5 C 71 13 158/78 H 94
[2019-01-20] MEDS ORDERED: ePHEDrine sulfate 50 MG/ML AMP IV PRN (14:40)
[2019-01-20] MEDS ORDERED: ONDANSETRON INJ 2 MG/ML 2 ML VIAL IV PRN ×2 (14:40→19:21)
[2019-01-20] MEDS ORDERED: FLUMAZENIL 0.1 MG/1 ML 10 ML VIAL IV PRN (14:40)
[2019-01-20] MEDS ORDERED: NALOXONE HCL 0.4 MG/1 ML VIAL/CARP IV PRN ×2 (14:40→19:21)
[2019-01-20] MEDS ORDERED: PROMETHAZINE HCL 12.5 MG in SODIUM CHLORIDE 0.9% 50 ML IV PRN (14:40)
[2019-01-20] MEDS ORDERED: LABETALOL HCL IV 5 MG/ML 20ML IV PRN (14:40)
[2019-01-20] MEDS ORDERED: ATROPINE SULFATE 0.1 MG/ML 10ML SYR IV PRN (14:40)
--- NOTE | 2019-01-20 15:42 | Infectious Disease Progress Nt ---
Date of Service January 20, 2019 Assessment & Plan (1) Infection of prosthetic knee joint: Infected left TKA with enterococcus and Enterobacter. Agree with need for removal of prosthesis and placement of antibiotic spacer. Will require prolonged IV antibiotics. Will change now to vancomycin and ertapenem, may need to adjust to allow for outpatient therapy. Will follow. 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 Pain about the same today. No fever. For OR later today. Tolerating antibiotics without apparent difficulty. Review of Systems Review of Systems: All systems reviewed & are unremarkable except as noted in HPI & below Physical Exam Constitutional: WD/WN, vitals as above + obese and comfortable; no acute distress Eyes: PERRL, conjunctivae normal, anicteric sclerae ENMT: external ear and nose normal, oropharynx normal Neck: trachea midline, no thyromegaly neck nontender Respiratory: normal respiratory effort, lungs clear to auscultation normal percussion; does not use accessory muscles Cardiovascular: Rate/Rhythm: regular rate and regular rhythm Heart Sounds: normal S1 and normal S2; no gallop, no murmur and no cardiac rub Vessels: normal peripheral pulses; no JVD Gastrointestinal (Abdomen): normal bowel sounds, soft, nontender, no hepatosplenomegaly Musculoskeletal: no cyanosis or clubbing, extremities motor strength 5/5 Spine: thoracic spine normal to inspection and lumbar spine normal to in spection; no cervical spinal tenderness Knee: + knee abnormal to inspection (Left knee swollen, slightly warm) Skin: no rashes, warm and dry normal turgor; no lesions Neurologic: patellar DTR's 2+ bilat, sensation intact no focal motor deficits Psychiatric: A+Ox3, euthymic affect Orientation: cooperative Lymphatic: no cervical or axillary lymphadenopathy no inguinal lymphadenopathy Results & Data Vital Signs (Past 12 Hours) Vital Signs Temp Pulse Pulse Resp BP BP Pulse Ox 01/20/19 12:41 36.6 C 84 20 168/91 H 100 01/20/19 11:24 36.3 C L 71 14 145/79 H 96 01/20/19 07:15 36.5 C 71 13 158/78 H 94 Laboratory Results Short CBC 01/20/19 Range/Units 03:42 WBC 7.52 (4.8-10.8) K/uL Hgb 10.4 L (12.0-16.0) g/dL Hct 31.7 L (37-47) % Plt Count 351 (130-400) K/uL BMP 01/20/19 03:42 Sodium 136 Potassium 3.9 Chloride 105 Carbon Dioxide 25 BUN 14 Creatinine 0.76 Glucose 100 H Calcium 8.8 Diagnostic Findings Microbiology 01/19/19 14:33 Blood Aerobic Blood Culture - Preliminary No growth in Aerobic bottle after 24 hours. 01/19/19 14:33 Blood Anaerobic Blood Culture - Preliminary No growth in Anaerobic bottle after 24 hours. 01/19/19 14:50 Blood Aerobic Blood Culture - Preliminary No growth in Aerobic bottle after 24 hours. 01/19/19 14:50 Blood Anaerobic Blood Culture - Preliminary No growth in Anaerobic bottle after 24 hours.
[2019-01-20] MEDS ORDERED: ePHEDrine sulfate 50 MG/ML AMP ONE (15:50)
[2019-01-20] MEDS ORDERED: BUPIVACAINE LIPOSOME 1.3% 266 MG/20 ML VIAL ONE (17:01)
--- NOTE | 2019-01-20 17:56 | Post Operative Brief Note ---
Immediate Post Op Note v1 Date of Surgery January 20, 2019 Pre & Post Diagnosis Operation Date: 01/20/19 12:55 Pre-Op Diagnosis: Left Total Knee Infection Post-Op Diagnosis: Left Total Knee Infection Procedure Operation Date: 01/20/19 12:55 Actual Procedures p Explant Left Total Knee Insertion Cement Spacer(Left) - Saurabh Sandoval DO Surgeon Saurabh Sandoval DO [employer] Hector Rosado Estimated Blood Loss 650 Findings Consistent with Post-Op Diagnosis Fluids 2000 cc LR Specimens cultures x 4 Drains Dumont Catheter and Hemovac Drain Anesthesia Type General Complications none Disposition Disposition: Recovery Room Overlapping Procedure I was present for: the critical portions of procedure. I was immediately available: during the entire case. Back up surgeon: was not required during procedure.
[2019-01-20] MEDS: HYDROmorphone INJ 1 MG/ML SYRINGE IV PRN ×7 (18:27→18:55)
[2019-01-20 18:28] LABS: iSTAT Creatinine 0.6 mg/dl (0.6-1.3); iSTAT Hemoglobin 8.8 g/dl (12.0-16.0); iSTAT Ionized Calcium 1.2 mmol/l (1.12-1.32); iSTAT Potassium 4.1 mEq/L (3.3-5.0)
--- NOTE | 2019-01-20 18:32 | Orthopedic Progress Note ---
Date of Service January 20, 2019 Assessment & Plan (1) Infection of prosthetic knee joint: Status post explant left total knee arthroplasty, irrigation and debridement, antibiotic cement articulating spacer -IV antibiotics per infectious disease, ertapenem and daptomycin -DVT prophylaxis Lovenox 40 mg subcu daily -Partial weightbearing left lower extremity at all times assistive device with ambulation -Maintain knee immobilizer at all times -Postoperative x-ray pending -PT/OT -Monitor drain output -A.m. labs -DC planning Subjective Post Operative Progress Note Patient seen in PACU, comfortable, denies complaints, pain well controlled, no acute issues. Review of Systems Review of Systems: All systems reviewed & are unremarkable except as noted in HPI & below Constitutional: as per Subjective / HPI Physical Exam Physical Exam: LLE NVSI +EHL/FHL/TA/GS SILT grossly, +2 DP pulse, compartments soft NT, dressing cdi. Constitutional: WD/WN, vitals as above Results & Data Vital Signs (Past 12 Hours) Vital Signs Temp Pulse Pulse Resp BP BP Pulse Ox 01/20/19 12:41 36.6 C 84 20 168/91 H 100 01/20/19 11:24 36.3 C L 71 14 145/79 H 96 01/20/19 07:15 36.5 C 71 13 158/78 H 94
--- NOTE | 2019-01-20 19:02 | Anesthesiology Progress Note ---
Date of Service January 20, 2019 Anesthesia Post Procedure Vital Signs Vital Signs: Temp Pulse Pulse Resp BP BP Pulse Ox 01/20/19 18:55 91 H 12 124/67 100 01/20/19 18:45 90 10 L 147/75 H 100 01/20/19 18:35 98 H 20 121/71 100 01/20/19 18:25 102 H 12 125/84 100 01/20/19 18:18 97.9 F 108 H 12 132/79 96 01/20/19 12:41 97.9 F 84 20 168/91 H 100 01/20/19 11:24 97.3 F L 71 14 145/79 H 96 01/20/19 07:15 97.7 F 71 13 158/78 H 94 01/19/19 23:17 98.2 F 72 16 133/78 95 01/19/19 21:44 81 160/88 H Pain Intensity Left Knee: Pain Intensity: 7 Transfer of Care Handoff Completed per policy Notes Mental Status: alert / awake / arousable and participated in evaluation Patient Amnestic to Procedure: Yes Nausea / Vomiting: adequately controlled Pain: adequately controlled Airway Patency, RR, SpO2: stable & adequate BP & HR: stable & adequate Hydration State: stable & adequate Anesthetic Complications: no major complications apparent and Pt Satisfied with anesthetic care
[2019-01-20] MEDS ORDERED: BISACODYL 10 MG SUPP PR PRN (19:21)
[2019-01-20] MEDS ORDERED: METOCLOPRAMIDE HCL INJ 5 MG/ML 2 ML VIAL IV PRN (19:21)
[2019-01-20] MEDS ORDERED: HYDROmorphone INJ 0.5 MG/0.5 ML SYR IV PRN (19:21)
[2019-01-20] MEDS: ERTAPENEM SODIUM 1,000 MG in SODIUM CHLORIDE 0.9% 50 ML IV SCH (19:48)
--- NOTE | 2019-01-20 20:09 | XRay Report ---
XR knee LT 2V routine CLINICAL HISTORY: Postoperative evaluation. COMPARISON: Left knee radiographs May 01, 2018. FINDINGS: Antibiotic spacer with multiple impregnated beads are noted. Alignment of the left knee is anatomic. Drains are in place. There is no fracture. There is no unexpected radiopaque foreign candice s. IMPRESSION: Findings consistent with placement of an antibiotic spacer with impregnated beads. Electronically signed by: Grant Carpenter M.D. 01/20/2019 8:08 PM
[2019-01-20] MEDS ORDERED: SODIUM CHLORIDE 0.9% 1000ML 1,000 ML IV SCH (21:00)
[2019-01-20] MEDS: SENNA 8.6 MG TAB PO SCH (21:01)
[2019-01-20] MEDS: DOCUSATE SODIUM 100 MG CAP PO SCH (21:01)
[2019-01-20] MEDS: ACETAMINOPHEN 500 MG TAB PO SCH (21:01)
[2019-01-20] MEDS: METOPROLOL TARTRATE 25 MG TAB PO SCH (21:41)
[2019-01-20] MEDS: SODIUM CHLORIDE 0.9% 1000ML 1,000 ML IV SCH (22:21)
[2019-01-20] MEDS: OXYCODONE HCL IR 5 MG TAB (IMMEDIATE RELEASE) PO PRN (23:24)
[2019-01-21] MEDS ORDERED: VANCOMYCIN TROUGH ONE (01:30)
[2019-01-21] MEDS: ACETAMINOPHEN 500 MG TAB PO SCH ×3 (05:52→21:43)
[2019-01-21 08:01] LABS: Hematocrit (blood only) 23.7 % (37-47); Hemoglobin 7.5 g/dL (12.0-16.0); Mean Corpuscular Hgb Conc 31.6 g/dL (32-36); Mean Corpuscular Volume 78.7 fL (80-100); Mean Platelet Volume 8.2 fL (7.4-10.4); Platelet Count 305 K/uL (130-400); RDW Coefficient of Variation 18.7 % (11.5-14.5); RDW Standard Deviation 53.9 fL (36.4-46.3); Red Blood Count 3.01 M/uL (4.2-5.4); White Blood Count 11.21 K/uL (4.8-10.8)
[2019-01-21 08:10] LABS: BUN Creatinine Ratio 17.2 (10-20); Calcium 8.7 mg/dl (8.5-10.1); Creatinine Clr Calc Pharmacy 82.9 ml/min; Est GFR (African American) 97.4; Est GFR (Non-African American) 84.1; Potassium 4.3 mmol/L (3.5-5.1)
[2019-01-21] MEDS: DOCUSATE SODIUM 100 MG CAP PO SCH ×2 (09:30→21:40)
[2019-01-21] MEDS: ENOXAPARIN INJ 40 MG/0.4 ML SYR SQ SCH (09:30)
[2019-01-21] MEDS: MULTIVITAMIN TAB PO SCH (09:30)
[2019-01-21] MEDS ORDERED: SODIUM CHLORIDE 0.9% 250 ML IV PRN (10:00)
--- NOTE | 2019-01-21 10:03 | Hospitalist Progress Note ---
Date of Service January 21, 2019 Assessment & Plan (1) Postoperative anemia due to acute blood loss: Symptomatic anemia, recommend transfuse two units at this time. Will recheck H/H in am . (2) Infection of prosthetic knee joint: s/p Explant Left Total Knee Insertion Cement Spacer on 01/20. Doing well, pain controlled. Cont plan per Ortho. (3) Post-operative state: (4) DVT prophylaxis: Lovenox held in setting of acute blood loss anemia until H/H improved and stable. Full Dispo-per Ortho DO Jadiel Arguelles Hospitalist Subjective lightheaded when she sits up this morning. tolerating PO-no issues with breakfast pain well controlled Review of Systems Review of Systems: All systems reviewed & are unremarkable except as noted in HPI & below Physical Exam Physical Exam: General: no acute distress, non-ill appearing, WDWN Head: normocephalic, atraumatic Eyes: conjunctiva non-injected, anicteric ENT: normal inspection external ears, nose, mucous membranes moist Neck: supple, trachea midline Lungs: clear, no respiratory distress, no wheezing/rhonchi/rales CV: RRR, no murmur, no pretibial edema Abd: normal BS, soft, non-tender Ext: RLE NVI Neuro: A&O x 3, no focal deficits noted, normal affect Skin: warm, dry Results & Data Vital Signs (Past 12 Hours) Vital Signs Temp Pulse Pulse Resp BP BP Pulse Ox 01/21/19 09:29 111/69 01/21/19 07:48 36.4 C L 80 16 98/62 L 99 01/21/19 03:51 36.7 C 82 18 103/65 98 01/20/19 23:22 36.3 C L 94 H 18 104/67 99 01/20/19 22:32 36.3 C L 90 14 109/69 99 Laboratory Results Short CBC 01/21/19 Range/Units 07:23 WBC 11.21 H (4.8-10.8) K/uL Hgb 7.5 L (12.0-16.0) g/dL Hct 23.7 L (37-47) % Plt Count 305 (130-400) K/uL BMP 01/21/19 07:23 Sodium 135 L Potassium 4.3 Chloride 104 Carbon Dioxide 24 BUN 13 Creatinine 0.76 Glucose 145 H Calcium 8.7 Medications Administered Current Inpatient Medications Acetaminophen (Tylenol) 1,000 mg PO Q8 CLAUDIO Stop: 02/19/19 21:59 Last Admin: 01/21/19 05:52 Dose: 1,000 mg Documented by: Acetaminophen (Tylenol) 650 mg PO PRE-TREAT [facility] Al Hydrox/Mg Hydrox/Simethicone (Maalox) 30 ml PO Q6H PRN PRN Reason: Dyspepsia Stop: 02/18/19 13:12 Bisacodyl (Dulcolax) 10 mg TN DAILY PRN PRN Reason: Constipation Stop: 02/19/19 19:20 Diphenhydramine HCl (Benadryl Capsule) 25 mg PO Q8H PRN PRN Reason: Itching Stop: 02/19/19 19:20 Diphenhydramine HCl (Benadryl Capsule) 25 mg PO PRE-TREAT [facility] Docusate Sodium (Colace) 100 mg PO BID [facility] Stop: 02/19/19 20:59 Last Admin: 01/21/19 09:30 Dose: 100 mg Documented by: Enoxaparin Sodium (Lovenox) 40 mg SQ QAM CLAUDIO Stop: 02/20/19 08:59 Last Admin: 01/21/19 09:30 Dose: 40 mg Documented by: Hydromorphone HCl (Dilaudid) 0.5 mg IV Q4H PRN PRN Reason: Pain Stop: 02/03/19 19:20 Ertapenem 1,000 mg/ Sodium (Chloride) 60 mls @ 100 mls/hr IV Q24H CLAUDIO Stop: 03/02/19 17:59 Last Infusion: 01/20/19 20:24 Dose: Infused Documented by: Daptomycin 325 mg/ Syringe 6.5 mls @ 3.25 mls/min IV DAILY@1200 CLAUDIO; Protocol Stop: 03/03/19 11:59 Last Admin: 01/20/19 12:07 Dose: 3.25 mls/min Documented by: Sodium Chloride (Nss) 250 mls @ 15 mls/hr IV .[id number] PRN PRN Reason: For Transfusion Stop: 02/20/19 09:59 Metoclopramide HCl (Reglan) 10 mg IV Q6H PRN PRN Reason: Nausea And Vomiting Stop: 02/19/19 19:20 Metoprolol Tartrate (Lopressor) 25 mg PO [facility] Stop: 02/18/19 20:59 Last Admin: 01/20/19 21:41 Dose: Not Given Documented by: Multivitamins (Multivitamin Tab) 1 tab PO [facility] Stop: 02/20/19 08:59 Last Admin: 01/21/19 09:30 Dose: 1 tab Documented by: Naloxone HCl (Narcan) 0.1 mg IV Q5M PRN PRN Reason: Oversedation/Resp Depression Stop: 02/19/19 19:20 Ondansetron HCl (Zofran) 4 mg IV Q6H PRN PRN Reason: Nausea And Vomiting Stop: 02/19/19 19:20 Oxycodone HCl (Roxicodone Immediate Rel) 5 - 10 mg PO Q4H PRN PRN Reason: Pain Stop: 02/03/19 19:20 Last Admin: 01/20/19 23:24 Dose: 10 mg Documented by: Sennosides (Senokot) 17.2 mg PO [facility] Stop: 02/19/19 20:59 Last Admin: 01/20/19 21:01 Dose: 17.2 mg Documented by:
--- NOTE | 2019-01-21 11:54 | Orthopedic Progress Note ---
Date of Service January 21, 2019 Assessment & Plan (1) Infection of prosthetic knee joint: POD 1 Status post explant left total knee arthroplasty, irrigation and debridement, antibiotic cement articulating spacer -IV antibiotics per infectious disease, ertapenem and daptomycin -DVT prophylaxis Lovenox 40 mg subcu daily -Partial weightbearing left lower extremity at all times assistive device with ambulation -Maintain knee immobilizer at all times -Postoperative x-ray well aligned well fixed orthopedic implant, without fracture dislocation. -PT/OT -Monitor drain output -A.m. labs as noted above -DC planning - will need manager intermediate IV antibx. Plan for Picc when antibx choice decided. I have seen and examined the patient, agree with above assessment plan. Subjective POD 1 s/p Left Removal INfected TKA hardware and implant antibx spacer Pt lying in bed receiveing PRBC's (hgb 7.5 this AM) No complaints currently. Mild pain over the left knee. Denies SOB,CP,LH. Review of Systems Review of Systems: All systems reviewed & are unremarkable except as noted in HPI & below Constitutional: as per Subjective / HPI Physical Exam Physical Exam: Dressings C/D/I. Calves soft, NT. NV intact. Toes mobile. LLE NVSI +EHL/FHL/TA/GS SILT grossly, +2 DP pulse, compartments soft NT, dressing cdi. Constitutional: WD/WN, vitals as above Results & Data Vital Signs (Past 12 Hours) Vital Signs Temp Pulse Pulse Pulse Resp BP BP 01/21/19 11:30 37.1 C 87 18 113/70 01/21/19 11:10 37 C 87 18 110/69 01/21/19 10:55 36.9 C 92 H 18 121/73 01/21/19 10:28 36.7 C 95 H 18 124/74 01/21/19 09:29 01/21/19 07:48 36.4 C L 80 16 01/21/19 03:51 36.7 C 82 18 103/65 BP Pulse Ox 01/21/19 11:30 95 01/21/19 11:10 95 01/21/19 10:55 99 01/21/19 10:28 98 01/21/19 09:29 111/69 01/21/19 07:48 98/62 L 99 01/21/19 03:51 98 Laboratory Results Laboratory Results WBC 11.21 K/uL (4.8-10.8) H 01/21/19 07:23 RBC 3.01 M/uL (4.2-5.4) L 01/21/19 07:23 Hgb 7.5 g/dL (12.0-16.0) L 01/21/19 07:23 POC Hgb 8.8 g/dl (12.0-16.0) L 01/20/19 16:53 Hct 23.7 % (37-47) L 01/21/19 07:23 POC Hct 26 % (37-47) L 01/20/19 16:53 MCV 78.7 fL (80-100) L 01/21/19 07:23 MCH 24.9 pg (25-34) L 01/21/19 07:23 MCHC 31.6 g/dL (32-36) L 01/21/19 07:23 RDW Std Deviation 53.9 fL (36.4-46.3) H 01/21/19 07:23 RDW Coeff of Charanjit 18.7 % (11.5-14.5) H 01/21/19 07:23 Plt Count 305 K/uL (130-400) 01/21/19 07:23 MPV 8.2 fL (7.4-10.4) 01/21/19 07:23 Immature Gran % (Auto) 0.4 % 01/20/19 03:42 Neut % (Auto) 60.5 % 01/20/19 03:42 Lymph % (Auto) 24.7 % 01/20/19 03:42 [place] % (Auto) 12.1 % 01/20/19 03:42 Eos % (Auto) 1.9 % 01/20/19 03:42 Baso % (Auto) 0.4 % 01/20/19 03:42 Immature Gran # (Auto) 0.03 K/uL (0.00-0.02) H 01/20/19 03:42 Neut # (Auto) 4.55 K/uL (1.4-6.5) 01/20/19 03:42 Lymph # (Auto) 1.86 K/uL (1.2-3.4) 01/20/19 03:42 [place] # (Auto) 0.91 K/uL (0.11-0.59) H 01/20/19 03:42 Eos # (Auto) 0.14 K/uL (0-0.5) 01/20/19 03:42 Baso # (Auto) 0.03 K/uL (0-0.2) 01/20/19 03:42 PT 10.7 Seconds (9.0-12.0) 01/19/19 13:49 INR 1.0 (0.9-1.1) 01/19/19 13:49 APTT 26.2 Seconds (21.0-31.0) 01/19/19 13:49 PTT Ratio 1.0 01/19/19 13:49 POC Sodium 138 mEq/L (135-144) 01/20/19 16:53 Sodium 135 mmol/L (136-145) L 01/21/19 07:23 POC Potassium 4.1 mEq/L (3.3-5.0) 01/20/19 16:53 Potassium 4.3 mmol/L (3.5-5.1) 01/21/19 07:23 POC Chloride 105 mEq/L (101-112) 01/20/19 16:53 Chloride 104 mmol/L (98-107) 01/21/19 07:23 Carbon Dioxide 24 mmol/L (21-32) 01/21/19 07:23 POC Total CO2 23 mEq/l (24-31) L 01/20/19 16:53 7.0 (3-11) 01/21/19 07:23 POC Anion Gap 15.0 mmol/L (16-25) L 01/20/19 16:53 POC BUN 10 mg/dl (7-18) 01/20/19 16:53 BUN 13 mg/dl (7-18) 01/21/19 07:23 0.76 mg/dl (0.6-1.2) 01/21/19 07:23 POC Creatinine 0.6 mg/dl (0.6-1.3) 01/20/19 16:53 Est Cr Clr Drug Dosing 82.9 ml/min 01/21/19 07:23 Est GFR ( Amer) 97.4 01/21/19 07:23 Est GFR (Non-Af Amer) 84.1 01/21/19 07:23 17.2 (10-20) 01/21/19 07:23 Glucose 145 mg/dl (70-99) H 01/21/19 07:23 POC Glucose (other) 136 mg/dl (70-99) H 01/20/19 16:53 1.3 mmol/L (0.4-2.0) 01/19/19 14:52 Calcium 8.7 mg/dl (8.5-10.1) 01/21/19 07:23 POC Ioniz Calcium Jason 1.20 mmol/l (1.12-1.32) 01/20/19 16:53 Magnesium 1.9 mg/dl (1.8-2.4) 01/20/19 03:42 0.3 mg/dl (0.2-1) 01/19/19 13:49 AST 10 U/L (15-37) L 01/19/19 13:49 ALT 12 U/L (12-78) 01/19/19 13:49 142 U/L (45-117) H 01/19/19 13:49 9.2 gm/dl (6.4-8.2) H 01/19/19 13:49 3.2 gm/dl (3.4-5.0) L 01/19/19 13:49 6.0 gm/dl (2.5-4.0) H 01/19/19 13:49 0.5 (0.9-2) L 01/19/19 13:49 Random Gentamicin < 0.20 mcg/ml 01/20/19 03:42 Vancomycin Trough 6.6 mcg/ml (See Comment) 01/21/19 01:48 Blood Type A Positive 01/19/19 13:50 Antibody Screen NEGATIVE 01/19/19 13:50 Crossmatch See Detail 01/19/19 13:50
[2019-01-21] MEDS: DAPTOmycin 325 MG in SYRINGE 0 ML IV SCH (12:34)
--- NOTE | 2019-01-21 12:49 | Infectious Disease Progress Nt ---
Date of Service January 21, 2019 Assessment & Plan (1) Infection of prosthetic knee joint: Infected left TKA with enterococcus and Enterobacter. S/P removal of prosthesis and placement of antibiotic spacer. Will require prolonged IV antibiotics. Enterococcus previously isolated somewhat resistant, patient now on daptomycin, and ertapenem to cover Enterobacter to allow once daily outpatient IV antibiotics. PICC line to be placed, outpatient antibiotics to be arranged by case preparer and liner. Will follow. 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 Mild pain over the left knee. Denies SOB,CP,LH. Physical Exam Constitutional: WD/WN, vitals as above + obese and comfortable; no acute distress Eyes: PERRL, conjunctivae normal, anicteric sclerae ENMT: external ear and nose normal, oropharynx normal Neck: trachea midline, no thyromegaly neck nontender Respiratory: normal respiratory effort, lungs clear to auscultation normal percussion; does not use accessory muscles Cardiovascular: Rate/Rhythm: regular rate and regular rhythm Heart Sounds: normal S1 and normal S2; no gallop, no murmur and no cardiac rub Vessels: normal peripheral pulses; no JVD Gastrointestinal (Abdomen): normal bowel sounds, soft, nontender, no hepatosplenomegaly Musculoskeletal: no cyanosis or clubbing, extremities motor strength 5/5 Knee: + knee abnormal to inspection (Dressing intact left knee) Skin: no rashes, warm and dry normal turgor; no lesions Neurologic: patellar DTR's 2+ bilat, sensation intact no focal motor deficits Psychiatric: A+Ox3, euthymic affect Orientation: cooperative Lymphatic: no cervical or axillary lymphadenopathy no inguinal lymph adenopathy Results & Data Vital Signs (Past 12 Hours) Vital Signs Temp Pulse Pulse Pulse Resp BP BP 01/21/19 12:30 36.8 C 93 H 16 125/76 01/21/19 11:52 36.8 C 84 18 01/21/19 11:30 37.1 C 87 18 113/70 01/21/19 11:10 37 C 87 18 110/69 01/21/19 10:55 36.9 C 92 H 18 121/73 01/21/19 10:28 36.7 C 95 H 18 124/74 01/21/19 09:29 01/21/19 07:48 36.4 C L 80 16 01/21/19 03:51 36.7 C 82 18 103/65 BP Pulse Ox 01/21/19 12:30 95 01/21/19 11:52 118/72 100 01/21/19 11:30 95 01/21/19 11:10 95 01/21/19 10:55 99 01/21/19 10:28 98 01/21/19 09:29 111/69 01/21/19 07:48 98/62 L 99 01/21/19 03:51 98 Laboratory Results Short CBC 01/21/19 Range/Units 07:23 WBC 11.21 H (4.8-10.8) K/uL Hgb 7.5 L (12.0-16.0) g/dL Hct 23.7 L (37-47) % Plt Count 305 (130-400) K/uL BMP 01/21/19 07:23 Sodium 135 L Potassium 4.3 Chloride 104 Carbon Dioxide 24 BUN 13 Creatinine 0.76 Glucose 145 H Calcium 8.7 Diagnostic Findings Microbiology 01/20/19 Unknown Knee,Left Gram Stain - Final 01/20/19 Unknown Knee,Left Gram Stain - Final 01/20/19 Unknown Knee,Left Gram Stain - Final 01/20/19 Unknown Knee,Left Gram Stain - Final 01/19/19 14:33 Blood Aerobic Blood Culture - Preliminary No growth in Aerobic bottle after 24 hours. 01/19/19 14:33 Blood Anaerobic Blood Culture - Preliminary No growth in Anaerobic bottle after 24 hours. 01/19/19 14:50 Blood Aerobic Blood Culture - Preliminary No growth in Aerobic bottle after 24 hours. 01/19/19 14:50 Blood Anaerobic Blood Culture - Preliminary No growth in Anaerobic bottle after 24 hours.
[2019-01-21] MEDS: OXYCODONE HCL IR 5 MG TAB (IMMEDIATE RELEASE) PO PRN (18:24)
[2019-01-21] MEDS: ERTAPENEM SODIUM 1,000 MG in SODIUM CHLORIDE 0.9% 50 ML IV SCH (18:24)
[2019-01-21] MEDS: METOPROLOL TARTRATE 25 MG TAB PO SCH (21:41)
[2019-01-21] MEDS: SENNA 8.6 MG TAB PO SCH (21:42)
[2019-01-22] MEDS: ACETAMINOPHEN 500 MG TAB PO SCH ×3 (05:24→21:44)
[2019-01-22] MEDS ORDERED: ACETAMINOPHEN 325 MG TAB PO SCH (06:00)
[2019-01-22 07:00] LABS: Hematocrit (blood only) 25.2 % (37-47); Hemoglobin 8.5 g/dL (12.0-16.0); Mean Corpuscular Hgb Conc 33.7 g/dL (32-36); Mean Corpuscular Volume 79.7 fL (80-100); Platelet Count 252 K/uL (130-400); RDW Coefficient of Variation 18.3 % (11.5-14.5); RDW Standard Deviation 53.9 fL (36.4-46.3); Red Blood Count 3.16 M/uL (4.2-5.4); White Blood Count 8.69 K/uL (4.8-10.8)
[2019-01-22 07:27] LABS: Calcium 8.9 mg/dl (8.5-10.1); Est GFR (African American) 109.2; Est GFR (Non-African American) 94.2; Potassium 3.7 mmol/L (3.5-5.1)
[2019-01-22] MEDS: DOCUSATE SODIUM 100 MG CAP PO SCH ×2 (08:50→21:43)
[2019-01-22] MEDS: MULTIVITAMIN TAB PO SCH (08:50)
--- NOTE | 2019-01-22 09:09 | Orthopedic Progress Note ---
Date of Service January 22, 2019 Assessment & Plan (1) Infection of prosthetic knee joint: POD 2 Status post explant left total knee arthroplasty, irrigation and debridement, antibiotic cement articulating spacer -IV antibiotics per infectious disease, ertapenem and daptomycin -DVT prophylaxis Lovenox 40 mg subcu daily -Partial weightbearing left lower extremity at all times assistive device with ambulation -Maintain knee immobilizer at all times -Postoperative x-ray well aligned well fixed orthopedic implant, without fracture dislocation. -PT/OT -Monitor drain output - continue drain for now. Will discuss -A.m. labs as noted above -DC planning - will need buttermaker continuous churn IV antibx. Plan for Picc line. I have seen and examined the patient, agree with above assessment plan. Subjective POD 2 s/p implantation antibx spacer left knee Pt sitting up in bed without complaints. Just finished eating breakfast. Did not get up with PT yesterday due to receiving blood. Looking forward to getting OOB today. Denies, SOB,CP, LH. Physical Exam Physical Exam: Dressings removed. Prevena intact. No overt drainage on Prevena. No drainage in collection tube. HV 100ml latest shift. No overt erythema around the Prevena. Swelling consistent with surgery. Calves soft, NT. NV intact. Results & Data Vital Signs (Past 12 Hours) Vital Signs Temp Pulse Pulse Pulse Resp BP Pulse Ox 01/22/19 07:23 36.8 C 77 16 119/76 95 01/21/19 23:32 37.2 C 95 H 18 114/70 94 01/21/19 21:35 106 H 124/71 Laboratory Results Laboratory Results WBC 8.69 K/uL (4.8-10.8) 01/22/19 06:50 RBC 3.16 M/uL (4.2-5.4) L 01/22/19 06:50 Hgb 8.5 g/dL (12.0-16.0) L 01/22/19 06:50 POC Hgb 8.8 g/dl (12.0-16.0) L 01/20/19 16:53 Hct 25.2 % (37-47) L 01/22/19 06:50 POC Hct 26 % (37-47) L 01/20/19 16:53 MCV 79.7 fL (80-100) L 01/22/19 06:50 MCH 26.9 pg (25-34) 01/22/19 06:50 MCHC 33.7 g/dL (32-36) 01/22/19 06:50 RDW Std Deviation 53.9 fL (36.4-46.3) H 01/22/19 06:50 RDW Coeff of Charanjit 18.3 % (11.5-14.5) H 01/22/19 06:50 Plt Count 252 K/uL (130-400) 01/22/19 06:50 MPV 8.0 fL (7.4-10.4) 01/22/19 06:50 Immature Gran % (Auto) 0.4 % 01/20/19 03:42 Neut % (Auto) 60.5 % 01/20/19 03:42 Lymph % (Auto) 24.7 % 01/20/19 03:42 [place] % (Auto) 12.1 % 01/20/19 03:42 Eos % (Auto) 1.9 % 01/20/19 03:42 Baso % (Auto) 0.4 % 01/20/19 03:42 Immature Gran # (Auto) 0.03 K/uL (0.00-0.02) H 01/20/19 03:42 Neut # (Auto) 4.55 K/uL (1.4-6.5) 01/20/19 03:42 Lymph # (Auto) 1.86 K/uL (1.2-3.4) 01/20/19 03:42 [place] # (Auto) 0.91 K/uL (0.11-0.59) H 01/20/19 03:42 Eos # (Auto) 0.14 K/uL (0-0.5) 01/20/19 03:42 Baso # (Auto) 0.03 K/uL (0-0.2) 01/20/19 03:42 PT 10.7 Seconds (9.0-12.0) 01/19/19 13:49 INR 1.0 (0.9-1.1) 01/19/19 13:49 APTT 26.2 Seconds (21.0-31.0) 01/19/19 13:49 PTT Ratio 1.0 01/19/19 13:49 POC Sodium 138 mEq/L (135-144) 01/20/19 16:53 Sodium 140 mmol/L (136-145) 01/22/19 06:50 POC Potassium 4.1 mEq/L (3.3-5.0) 01/20/19 16:53 Potassium 3.7 mmol/L (3.5-5.1) 01/22/19 06:50 POC Chloride 105 mEq/L (101-112) 01/20/19 16:53 Chloride 110 mmol/L (98-107) H 01/22/19 06:50 Carbon Dioxide 24 mmol/L (21-32) 01/22/19 06:50 POC Total CO2 23 mEq/l (24-31) L 01/20/19 16:53 6.0 (3-11) 01/22/19 06:50 POC Anion Gap 15.0 mmol/L (16-25) L 01/20/19 16:53 POC BUN 10 mg/dl (7-18) 01/20/19 16:53 BUN 11 mg/dl (7-18) 01/22/19 06:50 0.67 mg/dl (0.6-1.2) 01/22/19 06:50 POC Creatinine 0.6 mg/dl (0.6-1.3) 01/20/19 16:53 Est Cr Clr Drug Dosing 94.0 ml/min 01/22/19 06:50 Est GFR ( Amer) 109.2 01/22/19 06:50 Est GFR (Non-Af Amer) 94.2 01/22/19 06:50 17.0 (10-20) 01/22/19 06:50 Glucose 111 mg/dl (70-99) H 01/22/19 06:50 POC Glucose (other) 136 mg/dl (70-99) H 01/20/19 16:53 1.3 mmol/L (0.4-2.0) 01/19/19 14:52 Calcium 8.9 mg/dl (8.5-10.1) 01/22/19 06:50 POC Ioniz Calcium Jason 1.20 mmol/l (1.12-1.32) 01/20/19 16:53 Magnesium 1.9 mg/dl (1.8-2.4) 01/20/19 03:42 0.3 mg/dl (0.2-1) 01/19/19 13:49 AST 10 U/L (15-37) L 01/19/19 13:49 ALT 12 U/L (12-78) 01/19/19 13:49 142 U/L (45-117) H 01/19/19 13:49 9.2 gm/dl (6.4-8.2) H 01/19/19 13:49 3.2 gm/dl (3.4-5.0) L 01/19/19 13:49 6.0 gm/dl (2.5-4.0) H 01/19/19 13:49 0.5 (0.9-2) L 01/19/19 13:49 Random Gentamicin < 0.20 mcg/ml 01/20/19 03:42 Vancomycin Trough 6.6 mcg/ml (See Comment) 01/21/19 01:48 Blood Type A Positive 01/19/19 13:50 Antibody Screen NEGATIVE 01/19/19 13:50 Crossmatch See Detail 01/19/19 13:50
--- NOTE | 2019-01-22 10:54 | Hospitalist Progress Note ---
Date of Service January 22, 2019 Assessment & Plan (1) Postoperative anemia due to acute blood loss: 2 units transfused yesterday with 50% response expected and H&H increase. Will repeat H&H tonight. Hemovac in place. Discussed with orthopedics and this is appropriately draining. There may be a delusional component here. It is unlikely she is actively bleeding. Hemodynamics are stable. Will transfuse additional units of blood if she continues to fall. For the time being Lovenox is placed on hold, however, would be reasonable to restart this in the morning. Will follow labs. (2) Infection of prosthetic knee joint: s/p Explant Left Total Knee Insertion Cement Spacer on 01/20. Doing well, pain controlled. Cont plan per Ortho. (3) Post-operative state: (4) DVT prophylaxis: Lovenox held in setting of acute blood loss anemia until H/H improved and stable. Likely restart in am. Full Dispo-per Ortho Gail Ro DO [facility] Hospitalist Subjective feeling well today she got a full night's sleep lightheadedness resolved, able to ambulate suboptimal increase in H/H this am tolerating PO pain is controlled. Review of Systems Review of Systems: All systems reviewed & are unremarkable except as noted in HPI & below Physical Exam Physical Exam: General: no acute distress, non-ill appearing, WDWN Head: normocephalic, atraumatic Eyes: conjunctiva non-injected, anicteric ENT: normal inspection external ears, nose, mucous membranes moist Neck: supple, trachea midline Lungs: clear, no respiratory distress, no wheezing/rhonchi/rales CV: RRR, no murmurs Abd: normal BS, soft, non-tender Ext: RLE NVI Neuro: A&O x 3, no focal deficits noted, normal affect Skin: warm, dry Results & Data Vital Signs (Past 12 Hours) Vital Signs Temp Pulse Pulse Resp BP Pulse Ox 01/22/19 07:23 36.8 C 77 16 119/76 95 01/21/19 23:32 37.2 C 95 H 18 114/70 94 Laboratory Results Short CBC 01/22/19 Range/Units 06:50 WBC 8.69 (4.8-10.8) K/uL Hgb 8.5 L (12.0-16.0) g/dL Hct 25.2 L (37-47) % Plt Count 252 (130-400) K/uL BMP 01/22/19 06:50 Sodium 140 Potassium 3.7 Chloride 110 H Carbon Dioxide 24 BUN 11 Creatinine 0.67 Glucose 111 H Calcium 8.9 Medications Administered Current Inpatient Medications Acetaminophen (Tylenol) 1,000 mg PO Q8 CLAUDIO Stop: 02/19/19 21:59 Last Admin: 01/22/19 05:24 Dose: 1,000 mg Documented by: Acetaminophen (Tylenol) 650 mg PO PRE-TREAT CLAUDIO Stop: 01/22/19 18:00 Last Admin: 01/21/19 10:26 Dose: 650 mg Documented by: Al Hydrox/Mg Hydrox/Simethicone (Maalox) 30 ml PO Q6H PRN PRN Reason: Dyspepsia Stop: 02/18/19 13:12 Bisacodyl (Dulcolax) 10 mg DE DAILY PRN PRN Reason: Constipation Stop: 02/19/19 19:20 Diphenhydramine HCl (Benadryl Capsule) 25 mg PO Q8H PRN PRN Reason: Itching Stop: 02/19/19 19:20 Diphenhydramine HCl (Benadryl Capsule) 25 mg PO PRE-TREAT CLAUDIO Stop: 01/22/19 18:00 Last Admin: 01/21/19 10:27 Dose: 25 mg Documented by: Docusate Sodium (Colace) 100 mg PO BID [facility] Stop: 02/19/19 20:59 Last Admin: 01/22/19 08:50 Dose: 100 mg Documented by: Enoxaparin Sodium (Lovenox) 40 mg SQ QAM CLAUDIO Stop: 02/20/19 08:59 Last Admin: 01/21/19 09:30 Dose: 40 mg Documented by: Hydromorphone HCl (Dilaudid) 0.5 mg IV Q4H PRN PRN Reason: Pain Stop: 02/03/19 19:20 Ertapenem 1,000 mg/ Sodium (Chloride) 60 mls @ 100 mls/hr IV Q24H [facility] Stop: 03/02/19 17:59 Last Infusion: 01/21/19 19:04 Dose: Infused Documented by: Daptomycin 325 mg/ Syringe 6.5 mls @ 3.25 mls/min IV DAILY@1200 CLAUDIO; Protocol Stop: 03/03/19 11:59 Last Admin: 01/21/19 12:34 Dose: 3.25 mls/min Documented by: Sodium Chloride (Nss) 250 mls @ 15 mls/hr IV .[id number] PRN PRN Reason: For Transfusion Stop: 02/20/19 09:59 Metoclopramide HCl (Reglan) 10 mg IV Q6H PRN PRN Reason: Nausea And Vomiting Stop: 02/19/19 19:20 Metoprolol Tartrate (Lopressor) 25 mg PO [facility] Stop: 02/18/19 20:59 Last Admin: 01/21/19 21:41 Dose: 25 mg Documented by: Multivitamins (Multivitamin Tab) 1 tab PO [facility] Stop: 02/20/19 08:59 Last Admin: 01/22/19 08:50 Dose: 1 tab Documented by: Naloxone HCl (Narcan) 0.1 mg IV Q5M PRN PRN Reason: Oversedation/Resp Depression Stop: 02/19/19 19:20 Ondansetron HCl (Zofran) 4 mg IV Q6H PRN PRN Reason: Nausea And Vomiting Stop: 02/19/19 19:20 Oxycodone HCl (Roxicodone Immediate Rel) 5 - 10 mg PO Q4H PRN PRN Reason: Pain Stop: 02/03/19 19:20 Last Admin: 01/21/19 18:24 Dose: 5 mg Documented by: Sennosides (Senokot) 17.2 mg PO [facility] Stop: 02/19/19 20:59 Last Admin: 01/21/19 21:42 Dose: 17.2 mg Documented by:
[2019-01-22] MEDS: DAPTOmycin 325 MG in SYRINGE 0 ML IV SCH (12:31)
[2019-01-22 17:25] LABS: Hematocrit (blood only) 24.9 % (37-47); Hemoglobin 8.2 g/dL (12.0-16.0)
[2019-01-22] MEDS: ERTAPENEM SODIUM 1,000 MG in SODIUM CHLORIDE 0.9% 50 ML IV SCH (17:32)
[2019-01-22] MEDS: METOPROLOL TARTRATE 25 MG TAB PO SCH (21:43)
[2019-01-22] MEDS: SENNA 8.6 MG TAB PO SCH (21:43)
[2019-01-23] MEDS: ACETAMINOPHEN 500 MG TAB PO SCH ×2 (05:42→13:31)
[2019-01-23 06:32] LABS: Hemoglobin 8.4 g/dL (12.0-16.0); Mean Corpuscular Hgb Conc 33.6 g/dL (32-36); Mean Corpuscular Volume 80.4 fL (80-100); Mean Platelet Volume 8.2 fL (7.4-10.4); Platelet Count 265 K/uL (130-400); RDW Coefficient of Variation 18.7 % (11.5-14.5); RDW Standard Deviation 55.2 fL (36.4-46.3); Red Blood Count 3.11 M/uL (4.2-5.4); White Blood Count 7.59 K/uL (4.8-10.8)
[2019-01-23 07:01] LABS: BUN Creatinine Ratio 14.1 (10-20); Calcium 9.2 mg/dl (8.5-10.1); Creatinine Clr Calc Pharmacy 116.6 ml/min; Est GFR (African American) 117.2; Est GFR (Non-African American) 101.1; Potassium 3.6 mmol/L (3.5-5.1)
[2019-01-23 07:02] LABS: C Reactive Protein 9.77 mg/dl (0-0.29)
[2019-01-23] MEDS: MULTIVITAMIN TAB PO SCH (08:45)
[2019-01-23] MEDS: DOCUSATE SODIUM 100 MG CAP PO SCH (08:45)
--- NOTE | 2019-01-23 10:04 | Hospitalist Progress Note ---
Date of Service January 23, 2019 Assessment & Plan (1) Postoperative anemia due to acute blood loss: Pt had 2 units PRBC on 01/21/19 for H/H: 7.5/23.7 and yesterday H/H: 8.5/25.2. Pt was dizzy post-op which has since resolved and pt currently asymptomatic Today H/H: 8.4/25 and stable from yesterday. Vitals stable. No other signs of active bleeding Lovenox SQ restarted (2) Post-operative state: (3) Infection of prosthetic knee joint: Post op day# 3 S/P Explant L TKA and insertion antibiotic spacer by Dr Sandoval -has been on ertapenem and daptomycin IV for Enterococcus, Enterobacter. Infectious disease on board -has PICC line placed for outpatient antibiotics management per infectious disease -blood cultures negative -pain management and wound management per ortho -PT/OT as per ortho -incentive spirometry (4) DVT prophylaxis: Lovenox was on hold on 01/21/19 secondary to acute blood loss anemia. Has been resumed 01/23/19 as H&H stable. Full Code Dispo-per Ortho Pt was seen with Dr Ro. See addendum Supervising Physician Co-Signing Physician Notes I have seen and examined the patient and have discussed the case with the provider above. I agree with the assessment and plan as stated. PICC line placed yesterday; IV abx per ID and followup planned with ID for two weeks. Post-operative follow-up ordered and she is going on daily Lovenox for DVT prophylaxis. Anemia appears stable and is expected to improve. No further lightheadedness or other symptoms. We discussed the anemia and what to expect and she did not feel that a primary care follow-up was necessary for her at this time. Thank you for the consult. Jayjay, DO Subjective Pt seen and examined sitting up in bed. Reports feeling good today. Sleeping well. No dizziness/lightheadedness. Ambulating without symptoms. Eating and drinking well. States pain controlled. Had BM today. Denies fever/chills, N/V/D, MÁRQUEZ, CP, SOB, abdominal pain, urinary symptoms. Review of Systems Review of Systems: All systems reviewed & are unremarkable except as noted in HPI & below Physical Exam Physical Exam: General: no acute distress, WDWN Head: normocephalic, atraumatic Eyes: conjunctiva non-injected, anicteric ENT: normal inspection external ears, nose, mucous membranes moist Neck: supple, trachea midline Lungs: clear, no respiratory distress, no wheezing/rhonchi/rales CV: RRR, no murmur Abd: normal BS, soft, non-tender Ext: no cyanosis, no calf tenderness; L knee with knee immobilizer in place, knee with edema, dressing dry, drain intact, distal pulses palpable Neuro: A&O x 3, no focal deficits noted, normal affect Skin: warm, dry Results & Data Vital Signs (Past 12 Hours) Vital Signs Temp Pulse Pulse Resp BP Pulse Ox 01/23/19 07:55 37.0 C 76 18 90/60 L 95 01/22/19 22:46 36.9 C 76 16 106/67 96 Laboratory Results Short CBC 01/22/19 01/23/19 Range/Units 17:08 05:47 WBC 7.59 (4.8-10.8) K/uL Hgb 8.2 L 8.4 L (12.0-16.0) g/dL Hct 24.9 L 25.0 L (37-47) % Plt Count 265 (130-400) K/uL BMP 01/23/19 05:47 Sodium 138 Potassium 3.6 Chloride 106 Carbon Dioxide 27 BUN 8 Creatinine 0.54 L Glucose 109 H Calcium 9.2
[2019-01-23] MEDS: ENOXAPARIN INJ 40 MG/0.4 ML SYR SQ SCH (11:05)
[2019-01-23] MEDS: DAPTOmycin 325 MG in SYRINGE 0 ML IV SCH (13:30)
[2019-01-23] MEDS: ERTAPENEM SODIUM 1,000 MG in SODIUM CHLORIDE 0.9% 50 ML IV SCH (14:34)
--- NOTE | 2019-01-23 16:08 | Infectious Disease Progress Nt ---
Date of Service January 23, 2019 Assessment & Plan (1) Infection of prosthetic knee joint: Infected left TKA with enterococcus and Enterobacter. S/P removal of prosthesis and placement of antibiotic spacer. Will require prolonged IV antibiotics. Enterococcus previously isolated somewhat resistant, patient now on daptomycin, and ertapenem to cover Enterobacter to allow once daily outpatient IV antibiotics. Would like to see patient 2 to 3 weeks after discharge as outpatient. 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 Reports feeling good today. Sleeping well. No dizziness/lightheadedness. Ambulating without symptoms. Eating and drinking well. States pain controlled. Had BM today. Denies fever/chills, N/V/D, MÁRQUEZ, CP, SOB, abdominal pain, urinary symptoms. Physical Exam Constitutional: WD/WN, vitals as above + obese and comfortable; no acute distress Eyes: PERRL, conjunctivae normal, anicteric sclerae ENMT: external ear and nose normal, oropharynx normal Neck: trachea midline, no thyromegaly neck nontender Respiratory: normal respiratory effort, lungs clear to auscultation normal percussion; does not use accessory muscles Cardiovascular: Rate/Rhythm: regular rate and regular rhythm Heart Sounds: normal S1 and normal S2; no gallop, no murmur and no cardiac rub Vessels: normal peripheral pulses; no JVD Gastrointestinal (Abdomen): normal bowel sounds, soft, nontender, no hepatosplenomegaly Musculoskeletal: no cyanosis or clubbing, extremities motor strength 5/5 Spine: thoracic spine normal to inspection and lumbar spine normal to inspection; no cervical spinal tenderness Knee: + knee abnormal to inspection (Dressing intact left knee) Skin: no rashes, warm and dry normal turgor; no lesions Neurologic: patellar DTR's 2+ bilat, sensation intact no focal motor deficits Psychiatric: A+Ox3, euthymic affect Orientation: cooperative Lymphatic: no cervical or axillary lymphadenopathy no inguinal lymphaden opathy Results & Data Vital Signs (Past 12 Hours) Vital Signs Temp Pulse Pulse Pulse Resp BP BP 01/23/19 15:32 36.8 C 90 19 155/75 H 01/23/19 14:07 36.1 C L 80 76 106 H 17 123/78 119/76 01/23/19 11:33 36.1 C L 80 17 123/78 01/23/19 07:55 37.0 C 76 18 90/60 L Pulse Ox 01/23/19 15:32 98 01/23/19 14:07 98 01/23/19 11:33 98 01/23/19 07:55 95
--- NOTE | 2019-01-23 20:53 | Orthopedic Progress Note ---
Date of Service January 23, 2019 Assessment & Plan (1) Infection of prosthetic knee joint: POD 3 Status post explant left total knee arthroplasty, irrigation and debridement, antibiotic cement articulating spacer -IV antibiotics per infectious disease, ertapenem and daptomycin -DVT prophylaxis Lovenox 40 mg subcu daily -Partial weightbearing left lower extremity at all times assistive device with ambulation -Maintain knee immobilizer at all times -Postoperative x-ray well aligned well fixed orthopedic implant, without fracture dislocation. -PT/OT -DC HMV drain -A.m. labs as noted above -DC planning - cont IV abx as outpatient per ID, Ertapenem and Daptomycin, close follow up with infectious disease, weekly ESR/CRP/CBC Subjective Post Operative Progress Note Patient seen sitting up in bed, comfortable, denies complaints, pain well controlled, no acute issues. Review of Systems Review of Systems: All systems reviewed & are unremarkable except as noted in HPI & below Constitutional: as per Subjective / HPI Physical Exam Physical Exam: LLE NVSI +EHL/FHL/TA/GS SILT grossly, +2 DP pulse, compartments soft NT, dressing cdi. Constitutional: WD/WN, vitals as above Results & Data Vital Signs (Past 12 Hours) Vital Signs Temp Pulse Pulse Pulse Resp BP BP 01/23/19 15:32 36.8 C 90 19 155/75 H 01/23/19 14:07 36.1 C L 80 76 106 H 17 123/78 119/76 01/23/19 11:33 36.1 C L 80 17 123/78 Pulse Ox 01/23/19 15:32 98 01/23/19 14:07 98 01/23/19 11:33 98
--- NOTE | 2019-01-25 01:17 | Discharge Summary ---
DATE OF ADMISSION: 01/19/2019 DATE OF DISCHARGE: 01/23/2019 DISCHARGE DIAGNOSIS: Infected left total knee arthroplasty. SECONDARY DIAGNOSES: Hypertension, obesity, osteoarthritis, depression. CONSULTS: Dr. Lane Lamb and Tonie Truong PA-C/Dr. Jasper Lloyd COMPLICATIONS: None. PROCEDURES: Explanted left total knee arthroplasty hardware with insertion of antibiotic cement spacer and Stimulan beads by Dr. Saurabh Sandoval on 01/20/2019. BRIEF HISTORY: As dictated in the history and physical. HOSPITAL SUMMARY: The patient was admitted on the above date with the above noted infection. She has been started on IV antibiotics and Dr. Lamb had been consulted for ID consult, antibiotics were changed as per his guidance and the patient was then set up for the above noted surgery for the following day. By 01/20/2019, the patient was then taken to the operating room and the above noted procedure was performed, which she tolerated well. On her first postoperative day, she is lying in bed, receiving PRBCs from hemoglobin dropping to 7.5. She had no complaints. She had mild pain over the anterior knee. Denied shortness of breath, chest pain or lightheadedness. Dressings clean, dry and intact. Calves were soft, nontender. Neurovascularly intact. Toes were mobile and she had 2+ dorsalis pedis pulses. Vital signs were stable. She was afebrile and she was continued on IV antibiotics per ID team, which was ertapenem and daptomycin. DVT prophylaxis, Lovenox subQ daily, started on PT and OT protocols with partial weightbearing left lower extremity at all times with immobilizer on. By her second postoperative day, she was sitting up in bed without complaints. She just finished eating breakfast, but did not get up with PT yesterday due to receiving blood and was looking forward to getting up out of bed that morning. She denies shortness of breath, chest pain or lightheadedness. Dressings were removed. Prevena dressing was intact. No over drainage on Prevena, no drainage in the collection tube. She had 100 mL out of her latest shift from her Hemovac and had no overt erythema around the Prevena. Swelling was consistent with surgery. Calves were soft, nontender. Neurovascularly intact. Vital signs were stable. She was afebrile. Hemoglobin was 8.5 post-transfusion and white count was 8.6. She was continued on her DVT prophylaxis, pain management and IV antibiotics as per ID team. Plans were for PICC line use and was ordered and inserted for 6 weeks of IV antibiotics. By 01/23/2019, she continued to progress with her physical therapy, remained stable. Pain was controlled. She remained medically stable. Case management had been consulted to arrange home IV antibiotics, which was done. PICC line had been inserted and was functioning and patient was otherwise remaining stable and it was felt that she could be discharged to home on long-term IV antibiotics with home health services on 01/23/2019. For further review, please see chart. LABORATORY AND X-RAY DATA: As per chart. DISCHARGE INSTRUCTIONS: The patient was discharged to home in satisfactory condition on 01/23/2019 with home health services. ACTIVITY: Partial weightbearing left lower extremity with walker. Follow TK instruction sheets and special care instructions as notably no range of motion of the left knee. Use immobilizer at all times when ambulating and sleeping, may remove for bathing or changing clothes. Remember to take Lovenox once daily for 4 weeks and follow up with Dr. Sandoval in 2 weeks from the day of her surgery. Follow up with Dr. Lamb in 2 weeks. The patient to call for appointment. Patient to have home health lab draws once weekly and also home health to provide IV antibiotics and PICC line care. LAB results will be sent to Dr. Lamb and to Dr. Sandoval. DISCHARGE MEDICATIONS: Acetaminophen 1000 mg p.o. q.8 hours, daptomycin 325 mg IV daily, enoxaparin 40 mg subcutaneous q.a.m., ertapenem 1 gram IV daily, oxycodone 5-10 mg p.o. q.4 hours p.r.n., sennosides 17.2 mg p.o. at bedtime, resume metoprolol 25 mg p.o. at bedtime and stop taking naproxen. MTDD
--- NOTE | 2019-01-26 10:52 | Operative Report ---
Post Operative Report Pre & Post Diagnosis Operation Date: 01/20/19 12:55 Pre-Op Diagnosis: Left Total Knee Infection Post-Op Diagnosis: Left Total Knee Infection Procedure Operation Date: 01/20/19 12:55 Actual Procedures p Explant Left Total Knee Insertion Cement Spacer(Left) - Saurabh Sandoval DO Surgeon Saurabh Sandoval DO Metal Treater Hector Rosado Estimated Blood Loss 650 Findings Consistent with Post-Op Diagnosis Specimens Cultures x4 tissue sample x 1, synovium - canceled secondary to mishandling/contamination of sample by OR staff Drains Hemovac drain deep to fascia Anesthesia Type General Complications none Disposition Disposition: Recovery Room Indications The patient is a 63-year-old white female known to our practice who is status post left total knee arthroplasty in April of [address] Villalta. Post operatively the patient had fallen and dehisced her wound, and she underwent an irrigation and debridement of that left wound by Dr. Meade in May of 2018. She states since that time she has had persistent pain in the knee but has been able to get around. She states that the knee is swollen off and on and had not really relented as far as her pain. She again was able to get around and was not inhibiting her daily activities to a huge extent; however, it was troublesome. She came back in for a recheck of both of her knees since she had a right one done as well in 2018. At that time, she was seen by Anil Hansen PA-C, and x-rays were taken. It was noted that she had x-ray changes on her left knee, noting some bony deterioration around the prosthesis. Aspirations were obtained and sent to the hospital on 01/13/2019. This came back showing 2 types of Enterococcus and 1 type of [address]obacter. With Dr. Villalta being not in the office at this point in time, the case was discussed with me, and after seeing x-rays and reviewing her aspiration, it was felt she would benefit from explant of her hardware and implantation of antibiotic spacer with prolonged IV abx course. This was discussed with the patient in detail, and she was thusly admitted for the above-noted surgery. The risks benefits complications and alternatives of the procedure were explained to the patient detail which include however not limited to infections, blood clots, acute blood loss, injury to surrounding nerves, bone, vessels tissue, arthrofibrosis, chronic pain, need for repeat surgery, loss of life and limb. Patient wished to proceed with surgical intervention at this time and informed consent was obtained. stay. Description of Procedure Following induction of general anesthesia, a tourniquet was applied to the proximal aspect of the thigh and the patient's Left leg was prepped and draped in the usual sterile manner. A timeout was performed and site sheree verified. Limb was Elevated for 5 minutes and tourniquet was inflated to 300 mmHg. The prior incision was identified and a longitudinal midline incision was made over the anterior knee. Subcutaneous tissue was sharply dissected down to fascia. Electrocautery was used for hemostasis. Next a medial parapatellar arthrotomy was performed. Two cultures of synovial fluid was obtained. Identified thickened chronically inflamed synovial tissue deep to the fascia. Meticulous removal of hypertrophic synovium and scar tissue was removed with Bovie. Synovial tissue samples were sent for GS/culture at this time.. The patella was subluxed laterally and the knee was flexed. A whitmore retractor was used to expose the synovium above on the anterior aspect of the femur and removed down to bone. Next, the anterior fat pad was removed to aid in visualization. The medial face of the tibia was cleared of soft tissue first with a bovie and a san elevator. This tissue was retracted posteriorly using a blunt hohmann. Once adequate access was obtained to the total knee prosthesis we removed the tibial articular surface. Next we turned our attention to the femoral component and utilizing a microsagittal saw loosen the interface between the distal femur component and cement followed by flexible osteotomes. Backslapping distal femur extraction instrument was utilized to remove the distal femur, there was minimal bone loss. Meticulous removal of residual cement from the bone was performed. Next we turned our attention to the proximal tibia and utilizing the microsagittal saw the tibial component and cement interface was disrupted followed by flexible osteotomes. Utilizing to flat wide osteotomes we were able to lever the component out of the bone. Once again there was minimal bone loss. Next we meticulously removed remaining cement and cleared the distal femur proximal tibia and any remaining soft tissue. We gained access to both the intramedullary tibia and femur and intramedullary membrane was scraped with curved curettes. Culture swab samples were collected from both the femur and tibia intramedullary canals. Access was gained to the patella and meticulous removal of fibrous soft tissue surrounding the patella button was performed. The patella button was removed with saw and peg holes cleared of debris. The leg was elevated for 5 minutes and tourniquet inflated once again at this time. Aquamantys was utilized for any bleeders. The knee was irrigated with copious amounts of sterile saline solution mixed with bacitracin. Access to the proximal tibia was once again obtained utilizing two bent hohmann retractors and the proximal tibia and distal femur were dried with lap sponges. The Antibiotic Cement molds were cemented into place utilizing Palacos cement and all excess cement was removed. Once the cement had hardened knee stability was once again assessed. The cement molds gave good fit and fill of the joint space with adequate stability at all degrees of range of motion. The knee was once more irrigated with copious amounts of sterile saline solution, 12 L and total for the case. Hemovac drains 2 were inserted deep to the capsule. Stimulin beads were placed deep to fascia. The capsulotomy was closed with 1-0 PDS followed by subcutaneous closure with 3-0 PDS suture. Skin closure was performed using Graham, sterile dressings were applied which included makenzie, 4x4s and everton wrap. The tourniquet was deflated at this time. The patient was extubated in the OR and transported to the PACU in stable condition. Due to the complex nature of the procedure, the entire surgery was performed with the operational assistance of Anil Hansen and Hector Fair PA-C. The assistant case manager, under direct supervision, was involved in the actual performance of all aspects of the surgical procedure including patient positioning, hemostasis, tissue retraction, instrument management and wound closure. I attest to the content of the Intraoperative Record and any orders documented therein. Any exceptions are noted below.
== END 2019-01-23 16:15 | disposition home health service (06) | DRG 464 ==
LOC: 3N 12:35

== ENCOUNTER 2019-05-15 08:50 | Inpatient (IN) ==
[2019-04-21 13:59] LABS: Basophils # (auto) 0.06 K/uL (0-0.2); Basophils % (auto) 1.1 %; Eosinophils # (auto) 0.21 K/uL (0-0.5); Eosinophils % (auto) 3.9 %; Hematocrit (blood only) 41.6 % (37-47); Hemoglobin 13.3 g/dL (12.0-16.0); Immature Granulocytes # (auto) 0.01 K/uL (0.00-0.02); Immature Granulocytes % (auto) 0.2 %; Lymphocytes # (auto) 1.97 K/uL (1.2-3.4); Mean Corpuscular Volume 85.2 fL (80-100); Mean Platelet Volume 9.5 fL (7.4-10.4); Monocytes # (auto) 0.78 K/uL (0.11-0.59); Monocytes % (auto) 14.7 %; Neutrophils # (auto) 2.29 K/uL (1.4-6.5); Neutrophils % (auto) 43.1 %; Platelet Count 330 K/uL (130-400); RDW Coefficient of Variation 17.8 % (11.5-14.5); RDW Standard Deviation 55.7 fL (36.4-46.3); Red Blood Count 4.88 M/uL (4.2-5.4); White Blood Count 5.32 K/uL (4.8-10.8)
[2019-04-21 14:18] LABS: Partial Thromboplastin Ratio 0.9; Partial Thromboplastin Time 25.6 Seconds (21.0-31.0); Prothrombin Time 10.1 Seconds (9.0-12.0)
[2019-04-21 14:22] LABS: BUN Creatinine Ratio 16.5 (10-20); Blood Urea Nitrogen 14 mg/dl (7-18); Calcium 9.8 mg/dl (8.5-10.1); Carbon Dioxide 23 mmol/L (21-32); Chloride 109 mmol/L (98-107); Est GFR (African American) 83.9; Est GFR (Non-African American) 72.4; Glucose 114 mg/dl (70-99); Potassium 3.8 mmol/L (3.5-5.1); Sodium 139 mmol/L (136-145)
[2019-04-21 14:37] LABS: Appearance Urine Clear (Clear); Bilirubin Urine Negative (Negative); Blood Urine Negative (Negative); Color Urine Yellow; Glucose Urine UA Negative (Negative); Ketones Urine Negative (Negative); Leukocyte Esterase Urine Trace (Negative); Nitrite Urine Negative (Negative); Protein Urine Negative (Negative); Urobilinogen Urine Negative (Negative)
[2019-04-21 14:48] LABS: Bacteria Urine Negative (Negative); Calcium Oxalate Crystals Urine Present (None Prsent); Mucus Urine Present (None Prsent); RBC Urine 0-4 /hpf (0-4); WBC Urine 0-5 /hpf (0-5)
--- NOTE | 2019-04-28 11:09 | Anesthesiology Consultation ---
Date of Service April 28, 2019 Assessment & Plan (1) Encounter for pre-operative examination: PCP: 04/20/19: "Patient is medically cleared." Preop labs sent to PCP for their reference. Chart Review Chart Review: Acceptable Risk for Surgery and Patient NOT seen in Pre Admission Testing History Surgery Operation Date: 05/15/19 11:25 Proposed Procedures p Left Knee Arthroplasty Revision, Explant Antibiotic Spacer - Saurabh Sandoval, Height/Weight Height: 5 ft 4 in Weight: 90.718 kg Allergies Allergy/AdvReac Type Severity Reaction Status Date / Time No Known Allergies Allergy Verified 04/12/19 09:20 Medications Home Medications Medication Instructions Recorded Confirmed Last Taken oxycodone 5 - 10 mg PO Q4H PRN #30 tab 01/23/19 04/12/19 Unknown amoxicillin 500 mg capsule 500 mg PO BID 04/11/19 04/12/19 Unknown acetaminophen [Tylenol Extra 500 mg PO BID PRN 04/12/19 04/12/19 Unknown Strength] Past Medical History Medical History HTN (hypertension) hx: per patient, controlled off meds (previously on metoprolol) Obesity Joint prosthesis infection or inflammation reason for upcoming procedure Osteoarthritis Snoring Past Family History Family History Other FHx: lung cancer Past Surgical History Surgical History Hx of tonsillectomy History of total knee arthroplasty BILATERAL 04/21/2018. SAB with adductor canal block History of section X1 S/P knee surgery washout and poly exchange of left knee. PATIENT DID NOT WANT SPINAL ANESTHESIA SO WAS DONE UNDER GENERAL LMA #4. Social History Smoking Status: Never smoker Do You Dip or Chew Tobacco: No Hx Alcohol Use: Yes Alcohol type: beer alcohol intake frequency: other Hx Substance Use: No substance use type: does not use Testing Laboratory Results 04/21/19 08:49 04/21/19 08:49 PT 10.1 Seconds (9.0-12.0) 04/21/19 08:49 INR 1.0 (0.9-1.1) 04/21/19 08:49 APTT 25.6 Seconds (21.0-31.0) 04/21/19 08:49 Urine Color Yellow 04/21/19 08:48 Urine Appearance Clear (Clear) 04/21/19 08:48 Urine pH 5.0 (4.5-7.5) 04/21/19 08:48 Ur Specific [place] 1.020 (1.000-1.030) 04/21/19 08:48 Urine Protein Negative (Negative) 04/21/19 08:48 Urine Glucose (UA) Negative (Negative) 04/21/19 08:48 Urine Ketones Negative (Negative) 04/21/19 08:48 Urine Nitrite Negative (Negative) 04/21/19 08:48 Ur Leukocyte Esterase Trace (Negative) H 04/21/19 08:48 Urine RBC 0-4 /hpf (0-4) 04/21/19 08:48 Urine WBC 0-5 /hpf (0-5) 04/21/19 08:48 Ur Epithelial Cells 5-10 /lpf (0-5) H 04/21/19 08:48 Blood Type A Positive 04/21/19 08:49 Antibody Screen POSITIVE A 04/21/19 08:49 *Blood bank made aware of positive antibodies; nothing further needed per blood bank* Electrocardiogram Date: 01/19/19 Findings: + NSR @ (93) Chest X-Ray Date: 01/19/19 A vague opacity within the axillary portion of the left chest is felt to represent a summation. Degenerative changes are present within the spine. No active disease in the chest.
--- NOTE | 2019-05-14 14:52 | History & Physical Report ---
Date of Service May 14, 2019 Assessment & Plan (1) Infection of prosthetic knee joint: s/p explant left total knee and placement of antibiotic cement spacer, prolonged course of IV abx. I have indicated the patient for removal of antibiotic cement spacer and revision left total knee replacement, possible I+D and placement of antibiotic cement spacer. The risks, benefits and complications of surgery were explained to the patient which include but not limited to infection, acute blood loss, DVT/PE, injury to nerves, vessels, bone, soft tissue, arthrofibrosis, chronic pain, failure of the prosthesis, knee dislocation, leg length discrepancy, need for additional surgery, cardiac and pulmonary events and . The patient wished to proceed with surgery and informed consent was obtained at this time. We will plan for lovenox post-operatively for DVT prophylaxis. Upon discharge the patient will be discharged home with home health services. Appropriate clearances by PCP were obtained. ID recs appreciated, will continue with PO Amoxicillin post operatively. History of Present Illness Chief Complaint: Left total knee periprosthetic infection, s/p explant and antibiotic cement spacer, prolonged IV abx. Primary Care Provider: NO PCP The patient is a 63 year old female with significant PMHx for left total knee PJI. Seen in January for routine follow up for chronic swelling of the left knee, XR demonstrated osteolysis. Synovial fluid analysis cell count 1235, 92.3% polys, + culture for Enterococcus. Explant of the total knee and placement of antibiotic cement spacer performed on 01/26/19. After a course of prolonged IV abx Daptomycin and Ertepenem, the patient underwent an antibiotic holiday and synovial fluid aspiration performed which demonstrated a cell count of 706, 30.5% polys and negative cultures. The decision was then made to proceed with revision left total knee arthroplasty, removal of antibiotic cement spacer. Allergies Allergy/AdvReac Type Severity Reaction Status Date / Time No Known Allergies Allergy Verified 04/12/19 09:20 Home Medications Home Medications Medication Instructions Recorded Confirmed Type oxycodone 5 - 10 mg PO Q4H PRN #30 tab 01/23/19 05/15/19 Rx amoxicillin 500 mg capsule 500 mg PO BID 04/11/19 05/15/19 History acetaminophen [Tylenol Extra 500 mg PO BID PRN 04/12/19 05/15/19 History Strength] Past Med/Surg History Medical History HTN (hypertension) hx: per patient, controlled off meds (previously on metoprolol) Obesity Joint prosthesis infection or inflammation reason for upcoming procedure Osteoarthritis Snoring Surgical History Hx of tonsillectomy History of total knee arthroplasty BILATERAL 04/21/2018. SAB with adductor canal block History of section X1 S/P knee surgery washout and poly exchange of left knee. PATIENT DID NOT WANT SPINAL ANESTHESIA SO WAS DONE UNDER GENERAL LMA #4. Family History Other FHx: lung cancer Social History Preferred Language: Tanzanian Communication Ability: Effective Stunner Required: No Beliefs That Will Affect Care: None marital status: Current Living Situation: Spouse Other Information That Helps Us Care for You: No Feels Safe at Home: Yes Safety Concerns: Feels Safe At This Time Smoking Status: Never smoker Do You Dip or Chew Tobacco: No ; Second Hand Exposure: No ; Tobacco Cessation Education Requested by Patient: No Hx Alcohol Use: Yes Alcohol type: beer Alcohol Intake Frequency Comment: 4 beers three times a week Hx Substance Use: No Review of Systems Review of Systems: All systems reviewed & are unremarkable except as noted in HPI & below Constitutional: as per Subjective / HPI Physical Exam Physical Exam: LLE NVSI +EHL/FHL/TA/GS SILT grossly, +2 DP pulse, compartments soft NT, incision CDI, KI in place. Constitutional: WD/WN, vitals as above Eyes: PERRL, conjunctivae normal, anicteric sclerae ENMT: external ear and nose normal, oropharynx normal Neck: trachea midline, no thyromegaly Respiratory: normal respiratory effort, lungs clear to auscultation Cardiovascular: RRR, no murmur, no edema Gastrointestinal (Abdomen): normal bowel sounds, soft, nontender, no hepatosplenomegaly Musculoskeletal: no cyanosis or clubbing, extremities motor strength 5/5 Skin: no rashes, warm and dry Neurologic: patellar DTR's 2+ bilat, sensation intact Psychiatric: A+Ox3, euthymic affect Lymphatic: no cervical or axillary lymphadenopathy Results & Data Diagnostic Findings Multiple views of the knee demonstrates well aligned well fixed antibiotic cement spacer, subluxation of the spacer without fracture/dislocation
[~2019-05-15 08:50] MED LIST changes: -BUPIVACAINE 0.25% 30 ML VIAL ONE; -BUPIVACAINE 0.5 % 5 MG/1 ML PF 10ML VIAL ONE; +CEFAZOLIN 2000MG 2,000 MG/15 ML SYR IV ONE; +CLINDAMYCIN 600 MG/54 ML BAG IV SCH; -CLINDAMYCIN 600 MG/54 ML D5W 54 ML IV SCH; -DEXAMETHASONE 4 MG TAB PO SCH; +GABAPENTIN 600 MG DOSE PO SCH; -GABAPENTIN 600 MG PO SCH; -LACTATED RINGER'S 1000ML 1,000 ML IV SCH; -LACTATED RINGER'S 1000ML 500 ML IV SCH; +LR 500ML BOLUS, THEN 15ML/HR IV SCH; -METO25TA56 PO; +MIDAZOLAM HCL 1 MG/ML 2ML VIAL ONE; -OXYCODONE HCL 10 MG TABCR (OXYCONTIN) PO SCH; +ROPIVACAINE 0.5% HCL/PF 150 MG, BUPIVACAINE 0.5% MPF 30 ML, EPINEPHrine 30MG/30ML (OR U... INSTIL SCH; -ROPIVACAINE 5MG/ML 30 ML 150 MG, BUPIVACAINE 0.5% MPF INJ 30 ML, EpINEphrine HCL INJ 0.... INFIL SCH; +TRANEXAMIC ACID 1,000 MG **IV Intra-op IV SCH; +TRANEXAMIC ACID 1,000 MG **IV Pre-op IV SCH; +VANCOMYCIN CONSULT ACTIVE PRN; +VANCOMYCIN HCL 1,500 MG in SODIUM CHLORIDE 0.9% 500 ML IV STA; +dexAMETHasone 4 MG TAB PO SCH
[2019-05-15] MEDS ORDERED: BUPIVACAINE 0.5 % 5 MG/1 ML PF 10ML VIAL ONE (09:03)
[2019-05-15] MEDS ORDERED: ROPIVACAINE 0.5% 5 MG/ML 30 ML VIAL ONE (09:04)
--- NOTE | 2019-05-15 09:36 | History & Physical Bridge Note ---
Date of Service May 15, 2019 History & Physical Bridge Note I have examined the patient, reviewed the History & Physical and in the interval since the performance of the History & Physical I have noted the following changes of clinical significance: no changes noted
[2019-05-15] MEDS ORDERED: ONDANSETRON INJ 2 MG/ML 2 ML VIAL IV PRN (10:14)
[2019-05-15] MEDS ORDERED: fentaNYL citrate 100 MCG/2 ML VIAL IV PRN (10:14)
[2019-05-15] MEDS ORDERED: ATROPINE SULFATE 0.1 MG/ML 10ML SYR IV PRN (10:14)
[2019-05-15] MEDS ORDERED: ePHEDrine sulfate 50 MG/ML AMP IV PRN (10:14)
[2019-05-15 10:21] LABS: Estimated Average Glucose 120 mg/dl; Hemoglobin A1C 5.8 % (4.5-5.6)
[2019-05-15] MEDS ORDERED: BACITRACIN INJ 50,000 UNIT VIAL ONE (10:39)
[2019-05-15] MEDS ORDERED: ORTHO JOINT ANESTHETIC ONE (10:39)
[2019-05-15] MEDS ORDERED: fentaNYL citrate 100 MCG/2 ML VIAL ONE ×2 (11:23→11:55)
[2019-05-15] MEDS ORDERED: DEXAMETHASONE SOD INJ 4 MG/ML VIAL ONE (11:23)
[2019-05-15] MEDS ORDERED: PROPOFOL IV EMULSION 10 MG/ML 20 ML VIAL IV ONE (11:23)
[2019-05-15] MEDS ORDERED: ONDANSETRON INJ 2 MG/ML 2 ML VIAL ONE ×2 (11:23→14:09)
[2019-05-15] MEDS ORDERED: LIDOCAINE HCL 2% 2 ML VIAL/AMP(20MG/ML) INFIL ONE (11:23)
[2019-05-15] MEDS ORDERED: CEFAZOLIN 250 MG/ML 1 GM VIAL ONE (11:48)
[2019-05-15] MEDS ORDERED: ePHEDrine sulfate 50 MG/ML SYR ONE (12:06)
[2019-05-15] MEDS ORDERED: PHENYLEPHRINE 100MCG/ML 5ML SYR ONE (12:28)
[2019-05-15] MEDS ORDERED: HYDROmorphone INJ 2 MG/ML SYR/VIAL ONE (14:10)
--- NOTE | 2019-05-15 15:10 | Post Operative Brief Note ---
Immediate Post Op Note v1 Date of Surgery May 15, 2019 Pre & Post Diagnosis Operation Date: 05/15/19 11:25 Pre-Op Diagnosis: Second stage of two stage revision for prosthetic joint infection Post-Op Diagnosis: Second stage of two stage revision for prosthetic joint infection Procedure Operation Date: 05/15/19 11:25 Actual Procedures p Left Knee Arthroplasty Revision, Explant Antibiotic Spacer(Left) - Saurabh Sandoval DO Surgeon Saurabh Sandoval DO Automatic Car Wash Attendant Hector Fair Estimated Blood Loss 250 Findings Consistent with Post-Op Diagnosis Fluids 1700 cc LR Drains Hemovac Drain Anesthesia Type General Complications none Disposition Disposition: Recovery Room Overlapping Procedure I was present for: the critical portions of procedure. I was immediately available: during the entire case. Back up surgeon: was not required during procedure.
--- NOTE | 2019-05-15 15:22 | Operative Report ---
Post Operative Report Pre & Post Diagnosis Operation Date: 05/15/19 11:25 Pre-Op Diagnosis: Second stage of two stage revision for prosthetic joint infection Post-Op Diagnosis: Second stage of two stage revision for prosthetic joint infection Procedure Operation Date: 05/15/19 11:25 Actual Procedures p Left Knee Arthroplasty Revision, Explant Antibiotic Spacer(Left) - Saurabh Sandoval DO Surgeon Saurabh Sandoval, [employer] Hector Fair Estimated Blood Loss 250 Findings Consistent with Post-Op Diagnosis Specimens fresh frozen sample capsule x 3 fresh frozen tissue sample femur fresh frozen tissue sample tibia Culture/GS synovial fluid x 2 Drains hmv drain x 2 deep to fascial layer Anesthesia Type General Complications none Disposition Disposition: Recovery Room Indications The patient is a 63 year old female with significant PMHx for left total knee PJI. Seen in January for routine follow up for chronic swelling of the left knee, XR demonstrated osteolysis. Synovial fluid analysis cell count 1235, 92.3% polys, + culture for Enterococcus. Explant of the total knee and placement of antibiotic cement spacer performed on 01/26/19. After a course of prolonged IV abx Daptomycin and Ertepenem, the patient underwent an antibiotic holiday and synovial fluid aspiration performed which demonstrated a cell count of 706, 30.5% polys and negative cultures. The decision was then made to proceed with revision left total knee arthroplasty, removal of antibiotic cement spacer. I have indicated the patient for removal of antibiotic cement spacer and revision left total knee replacement, possible I+D and placement of antibiotic cement spacer. The risks, benefits and complications of surgery were explained to the patient which include but not limited to infection, acute blood loss, DVT/PE, injury to nerves, vessels, bone, soft tissue, arthrofibrosis, chronic pain, failure of the prosthesis, knee dislocation, leg length discrepancy, need for additional surgery, cardiac and pulmonary events and . The patient wished to proceed with surgery and informed consent was obtained at this time. We will plan for lovenox post-operatively for DVT prophylaxis. Upon discharge the patient will be discharged home with home health services. Appropriate clearances by PCP were obtained. ID recs appreciated, will continue with PO Amoxicillin post operatively. Description of Procedure Following induction of spinal anesthesia, a tourniquet was applied to the proximal aspect of the thigh and the patient's [ ] leg was prepped and draped in the usual sterile manner. A timeout was performed and site sheree verified. Limb was exsanguinated with an esmarch bandage and tourniquet was inflated to [ ] mmHg. The prior incision was identified and a longitudinal midline incision was made over the anterior knee. Previous surgical scar was excised. Subcutaneous tissue was sharply dissected down to fascia. Electrocautery was used for hemostasis. Next a medial parapatellar arthrotomy was performed. A culture of synovial fluid was obtained. Meticulous removal of hypertrophic synovium and scar tissue was removed with Bovie. Synovial tissue samples were sent for fresh frozen analysis. The patella was subluxed laterally and the knee was flexed. A whitmore retractor was used to expose the synovium above on the anterior aspect of the femur and removed down to bone. Next, the anterior fat pad was removed to aid in visualization. The medial face of the tibia was cleared of soft tissue first with a bovie and a san elevator. This tissue was retracted posteriorly using a blunt hohmann. Once adequate access was obtained to the antibiotic cement spacer we turned our attention to the femur spacer and utilizing a microsagittal saw loosen the interface between the distal femur component and cement followed by flexible osteotomes. Utilizing bone tamp and mallet, the femur spacer was removed, there was minimal bone loss. Meticulous removal of residual cement from the bone was performed. Next we turned our attention to the proximal tibia and utilizing the microsagittal saw the tibial component and cement interface was disrupted followed by flexible osteotomes. Utilizing to flat wide osteotomes we were able to lever the tibia spacer out of the bone. Once again there was minimal bone loss. Next we meticulously removed remaining cement and cleared the distal femur proximal tibia and any remaining soft tissue. We gained access to both the intramedullary tibia and femur and intramedullary membrane was scraped with curved curettes. Tissue samples were collected from both the femur and tibia intramedullary canals. Next sequential intramedullary reaming was performed by hand on both the tibia and the femur until adequate bone chatter was appreciated. Reaming was stopped at [ ] mm on the tibia and [ ] mm on the femur. At this time the tourniquet was dropped at [ ] minutes. The intramedullary reamer was left in the tibia and the T-handle was removed. The proximal tibia cutting guide was attached to the reamer and pinned in place. Intramedullary reamer was removed and the proximal tibia was cut removing minimal bone until there was a flat cut perpendicular to the mechanical axis. We confirmed the cut with drop jose and spacer block. Next the proximal tibia was assessed and two bent Hohmanns were placed medial and lateral to aid in visualization. The appropriate tibia size and rotation was selected and a size [ ] tibial plate was pinned into place with appropriate rotation. Preparation of the tibia was completed utilizing the matching tibial drill and broach. The trial tibial plate was removed and the trial size [ ] tibia with [ ] offset [ ]mm fluted stem with [ ] augments was attached to the proximal tibia and impacted into place. This provided good fit and fill of the proximal tibia. Next we turned our attention to the distal femur. The appropriate sized intramedullary reamer was inserted and T handle removed. The distal femur cutting guide was then pinned into place. A smooth-walled pin was placed through the anterior holes of the femur guide. Box cut was performed utilizing a reciprocal saw and the pins and box cut guide were removed. The final trial size [ ] femur with [ ] offset [ ]mm fluted stem with [ ] augments was inserted. A [ ]mm PS tibial articular surface was trialed. Sequential trialing of tibial sizes was performed, increasing to a tibial articular surface size [ ] mm. Varus-valgus balance was assessed in 0 degrees of extension and 30, 60 and 90 degrees of flexion. A final tibial articular surface size [ ] was chosen. Access was gained to the patella and meticulous removal of fibrous soft tissue surrounding the patella button was removed. The patella was cleared of any remaining osteophytes utilzing the rongour. The patella button was found to be stable and well fixed without signs of wear. The knee was found to be well balanced, well aligned, with excellent patellar tracking. The leg was rewrapped with new Esmarch and tourniquet inflated once again at this time. The trials were removed and final components were obtained and assembled on the back table. Aquamantys was utilized for any bleeders and Orthomix solution injected into the posterior capsule. The knee was irrigated with copious amounts of sterile saline solution mixed with bacitracin. Access to the proximal tibia was once again obtained utilizing two bent hohmann retractors and the proximal tibia and distal femur were dried with lap sponges. The final components were cemented into place utilizing Palacos cement and all excess cement was removed. A trial tibial articular surface was placed while cemented hardened. Knee stability was once again assessed and the final component inserted. The knee was injected with the remaining Orthomix solution and irrigated once more with sterile saline solution mixed with bacitracin. Hemovac drains 2 were inserted deep to the capsule. The capsulotomy was closed with #1 Vicryl followed by subcutaneous closure with 2-0 Vicryl suture. Skin closure was performed using 3-0 V lock suture and Prineo Dermabond closure system, sterile dressings were applied which included makenzie, 4x4s and everton wrap. The patient was extubated in the OR and transported to the PACU in stable condition. I attest to the content of the Intraoperative Record and any orders documented therein. Any exceptions are noted below.
[2019-05-15] MEDS ORDERED: METOPROLOL TARTRATE 1 MG/ML VIAL IV STA (15:49)
[2019-05-15] MEDS ORDERED: METOPROLOL TARTRATE 1 MG/ML VIAL IV ONE (15:50)
--- NOTE | 2019-05-15 15:50 | Anesthesiology Progress Note ---
Date of Service May 15, 2019 Anesthesia Post Procedure Vital Signs Vital Signs: Temp Pulse Pulse Resp BP Pulse Ox 05/15/19 15:40 90 14 107/86 95 05/15/19 15:30 85 14 115/61 94 05/15/19 15:20 81 13 100/54 L 95 05/15/19 15:14 37.0 C 91 H 10 L 113/56 L 94 05/15/19 09:20 36.7 C 90 20 160/97 H 100 Transfer of Care Handoff Completed per policy Notes Mental Status: alert / awake / arousable Patient Amnestic to Procedure: Yes Nausea / Vomiting: adequately controlled Pain: adequately controlled Airway Patency, RR, SpO2: stable & adequate BP & HR: stable & adequate Hydration State: stable & adequate Anesthetic Complications: no major complications apparent and Pt Satisfied with anesthetic care
--- NOTE | 2019-05-15 15:52 | XRay Report ---
XR knee LT 2V routine CLINICAL HISTORY: Surgical Post Op COMPARISON: 01/20/2019 DISCUSSION: There are postsurgical changes of a total knee arthroplasty and patellar resurfacing. The re is a long stem femoral and tibial prosthesis. There are overlying skin lata and surgical drains . No acute fractures or dislocations are visualized. IMPRESSION: Postsurgical changes of a long stem total left knee arthroplasty Electronically signed by: Ethan Harper M.D. 05/15/2019 3:50 PM
[2019-05-15] MEDS ORDERED: HYDROmorphone INJ 0.5 MG/0.5 ML SYR IV PRN (16:18)
[2019-05-15] MEDS ORDERED: VANCOMYCIN CONSULT ACTIVE PRN (16:18)
[2019-05-15] MEDS: SODIUM CHLORIDE 0.9% 1000ML 1,000 ML IV SCH (16:37)
--- NOTE | 2019-05-15 19:00 | Orthopedic Progress Note ---
Date of Service May 15, 2019 Assessment & Plan (1) Infection of prosthetic knee joint: s/p explant antibiotic spacer, revision left TKA -Vanco/ancef x 24, will restart PO amoxicillin -DVT ppx: SCDs, TEDs, Lovenox -WBAT LLE -PT/OT -monitor drain output -am labs -PO XR demonstrates a well aligned well fixed orthopedic prothesis without fracture/dislocation -am labs -DC planning Subjective Post Operative Progress Note Patient seen sitting up in bed, comfortable, denies complaints, pain well controlled, no acute issues. Review of Systems Review of Systems: All systems reviewed & are unremarkable except as noted in HPI & below Constitutional: as per Subjective / HPI Physical Exam Physical Exam: LLE NVSI +EHL/FHL/TA/GS SILT grossly, +2 DP pulse, compartments soft NT, dressing cdi. HMV drains in place. Constitutional: WD/WN, vitals as above Results & Data Vital Signs (Past 12 Hours) Vital Signs Temp Pulse Pulse Pulse Resp BP BP 05/15/19 18:19 36.5 C 80 16 124/76 05/15/19 17:13 34.8 C L 78 17 105/68 05/15/19 16:53 36.5 C 78 18 121/76 05/15/19 16:45 36.6 C 81 16 115/72 05/15/19 16:15 36.5 C 85 18 130/76 05/15/19 16:00 79 14 117/74 05/15/19 15:53 107 H 133/76 05/15/19 15:50 36.8 C 105 H 14 133/76 05/15/19 15:40 90 14 107/86 05/15/19 15:30 85 14 115/61 05/15/19 15:20 81 13 100/54 L 05/15/19 15:14 37.0 C 91 H 10 L 113/56 L 05/15/19 09:20 36.7 C 90 20 160/97 H Pulse Ox 05/15/19 18:19 100 05/15/19 17:13 99 05/15/19 16:53 97 05/15/19 16:45 100 05/15/19 16:15 100 05/15/19 16:00 97 05/15/19 15:53 05/15/19 15:50 97 05/15/19 15:40 95 05/15/19 15:30 94 05/15/19 15:20 95 05/15/19 15:14 94 05/15/19 09:20 100
[2019-05-15] MEDS: ENOXAPARIN INJ 40 MG/0.4 ML SYR SQ SCH (20:19)
[2019-05-15] MEDS: CEFAZOLIN 2000MG 2,000 MG/15 ML SYR IV SCH (20:20)
[2019-05-15] MEDS: ACETAMINOPHEN 500 MG TAB PO SCH (21:40)
[2019-05-15] MEDS ORDERED: VANCOMYCIN HCL 1,500 MG in SODIUM CHLORIDE 0.9% 500 ML IV SCH (22:00)
[2019-05-16] MEDS: ACETAMINOPHEN 500 MG TAB PO SCH ×3 (05:22→22:01)
[2019-05-16] MEDS: CEFAZOLIN 2000MG 2,000 MG/15 ML SYR IV SCH (05:22)
[2019-05-16] MEDS: SODIUM CHLORIDE 0.9% 1000ML 1,000 ML IV SCH (05:37)
[2019-05-16 06:01] LABS: Hematocrit (blood only) 29.8 % (37-47); Hemoglobin 9.5 g/dL (12.0-16.0); Mean Corpuscular Hgb Conc 31.9 g/dL (32-36); Mean Corpuscular Volume 86.6 fL (80-100); Mean Platelet Volume 8.8 fL (7.4-10.4); Platelet Count 262 K/uL (130-400); RDW Coefficient of Variation 17.7 % (11.5-14.5); RDW Standard Deviation 56.4 fL (36.4-46.3); Red Blood Count 3.44 M/uL (4.2-5.4); White Blood Count 13.75 K/uL (4.8-10.8)
[2019-05-16 06:32] LABS: BUN Creatinine Ratio 19.5 (10-20); Calcium 8.5 mg/dl (8.5-10.1); Creatinine Clr Calc Pharmacy 71.6 ml/min; Est GFR (African American) 78.4; Est GFR (Non-African American) 67.6; Potassium 3.9 mmol/L (3.5-5.1)
--- NOTE | 2019-05-16 07:38 | Anesthesiology Progress Note ---
Date of Service May 16, 2019 Anesthesia Post Procedure Vital Signs Vital Signs: Temp Pulse Pulse Pulse Resp BP BP 05/16/19 04:01 36.5 C 66 14 107/65 05/15/19 23:26 36.5 C 80 16 131/71 05/15/19 19:13 36.4 C L 82 17 146/73 H 05/15/19 18:19 36.5 C 80 16 124/76 05/15/19 17:13 36.8 C 78 17 105/68 05/15/19 16:53 36.5 C 78 18 121/76 05/15/19 16:45 36.6 C 81 16 115/72 05/15/19 16:15 36.5 C 85 18 130/76 05/15/19 16:00 79 14 117/74 05/15/19 15:53 107 H 133/76 05/15/19 15:50 36.8 C 105 H 14 133/76 05/15/19 15:40 90 14 107/86 05/15/19 15:30 85 14 115/61 05/15/19 15:20 81 13 100/54 L 05/15/19 15:14 37.0 C 91 H 10 L 113/56 L 05/15/19 09:20 36.7 C 90 20 160/97 H Pulse Ox 05/16/19 04:01 98 05/15/19 23:26 97 05/15/19 19:13 100 05/15/19 18:19 100 05/15/19 17:13 99 05/15/19 16:53 97 05/15/19 16:45 100 05/15/19 16:15 100 05/15/19 16:00 97 05/15/19 15:53 05/15/19 15:50 97 05/15/19 15:40 95 05/15/19 15:30 94 05/15/19 15:20 95 05/15/19 15:14 94 05/15/19 09:20 100 Pain Intensity Left Knee: Pain Intensity: 1 Notes Mental Status: alert / awake / arousable and participated in evaluation Patient Amnestic to Procedure: Yes Nausea / Vomiting: adequately controlled Pain: adequately controlled Airway Patency, RR, SpO2: stable & adequate BP & HR: stable & adequate Hydration State: stable & adequate Anesthetic Complications: no major complications apparent
[2019-05-16] MEDS: OXYCODONE HCL IR 5 MG TAB (IMMEDIATE RELEASE) PO PRN ×2 (10:03→15:16)
--- NOTE | 2019-05-16 13:42 | Orthopedic Progress Note ---
Date of Service May 16, 2019 Assessment & Plan (1) Infection of prosthetic knee joint: s/p explant antibiotic spacer, revision left TKA POD#1 -Vanco/ancef x 24, will restart PO amoxicillin -DVT ppx: SCDs, TEDs, Lovenox -WBAT LLE -PT/OT -monitor drain output - 200/200 -am labs - hgb 9.5, acute post operative anemia secondary to intra-op blood loss and dilutional effect -PO XR demonstrates a well aligned well fixed orthopedic prothesis without fracture/dislocation -DC planning Subjective Post Operative Progress Note Patient seen sitting up in bed in a.m., comfortable, denies complaints, pain well controlled, no acute issues. Review of Systems Review of Systems: All systems reviewed & are unremarkable except as noted in HPI & below Constitutional: as per Subjective / HPI Physical Exam Physical Exam: LLE NVSI +EHL/FHL/TA/GS SILT grossly, +2 DP pulse, compartments soft NT, dressing cdi. HMV drain intact Constitutional: WD/WN, vitals as above Results & Data Vital Signs (Past 12 Hours) Vital Signs Temp Pulse Resp BP Pulse Ox 05/16/19 07:56 36.7 C 73 18 147/76 H 100 05/16/19 04:01 36.5 C 66 14 107/65 98 Laboratory Results 05/16/19 05/16/19 Range/Units 05:48 05:48 WBC 13.75 H (4.8-10.8) K/uL RBC 3.44 L (4.2-5.4) M/uL Hgb 9.5 L (12.0-16.0) g/dL Hct 29.8 L (37-47) % MCV 86.6 (80-100) fL MCH 27.6 (25-34) pg MCHC 31.9 L (32-36) g/dL RDW Std Deviation 56.4 H (36.4-46.3) fL RDW Coeff of Charanjit 17.7 H (11.5-14.5) % Plt Count 262 (130-400) K/uL MPV 8.8 (7.4-10.4) fL Sodium 140 (136-145) mmol/L Potassium 3.9 (3.5-5.1) mmol/L Chloride 109 H (98-107) mmol/L Carbon Dioxide 22 (21-32) mmol/L Anion Gap 9.0 (3-11) BUN 18 (7-18) mg/dl Creatinine 0.91 (0.6-1.2) mg/dl Est Cr Clr Drug Dosing 71.6 ml/min Est GFR ( Amer) 78.4 Est GFR (Non-Af Amer) 67.6 BUN/Creatinine Ratio 19.5 (10-20) Glucose 137 H (70-99) mg/dl Calcium 8.5 (8.5-10.1) mg/dl
[2019-05-16] MEDS: ENOXAPARIN INJ 40 MG/0.4 ML SYR SQ SCH (20:43)
[2019-05-16] MEDS ORDERED: SENNA 8.6 MG TAB PO PRN (23:01)
[2019-05-17] MEDS: ACETAMINOPHEN 500 MG TAB PO SCH (05:37)
[2019-05-17] MEDS: OXYCODONE HCL IR 5 MG TAB (IMMEDIATE RELEASE) PO PRN ×2 (05:40→10:22)
[2019-05-17 06:35] LABS: Hematocrit (blood only) 26.6 % (37-47); Hemoglobin 8.5 g/dL (12.0-16.0); Mean Corpuscular Volume 86.9 fL (80-100); Mean Platelet Volume 8.3 fL (7.4-10.4); Platelet Count 207 K/uL (130-400); RDW Coefficient of Variation 18.1 % (11.5-14.5); RDW Standard Deviation 57.5 fL (36.4-46.3); Red Blood Count 3.06 M/uL (4.2-5.4); White Blood Count 8.59 K/uL (4.8-10.8)
[2019-05-17 07:05] LABS: BUN Creatinine Ratio 21.3 (10-20); Calcium 8.6 mg/dl (8.5-10.1); Creatinine Clr Calc Pharmacy 79.5 ml/min; Est GFR (African American) 88.9; Est GFR (Non-African American) 76.7
--- NOTE | 2019-05-17 07:45 | Orthopedic Progress Note ---
Date of Service May 17, 2019 Assessment & Plan (1) Infection of prosthetic knee joint: s/p explant antibiotic spacer, revision left TKA POD#2 -Vanco/ancef x 24, will restart PO amoxicillin -DVT ppx: SCDs, TEDs, Lovenox -WBAT LLE -PT/OT -monitor drain output - DC'd -am labs - hgb 8.5, asymptomatic, monitor at this time -PO XR demonstrates a well aligned well fixed orthopedic prothesis without fracture/dislocation -DC planning - home with POD#1 -Vanco/ancef x 24, will restart PO amoxicillin -DVT ppx: SCDs, TEDs, Lovenox -WBAT LLE -PT/OT -monitor drain output - 200/200 -am labs - hgb 9.5, acute post operative anemia secondary to intra-op blood loss and dilutional effect -PO XR demonstrates a well aligned well fixed orthopedic prothesis without fracture/dislocation -DC planning Subjective Post Operative Progress Note Patient seen sitting up in bed eating breakfast., comfortable, denies complaints, pain well controlled, no acute issues. Denies N/V/CP, SOB. Review of Systems Review of Systems: All systems reviewed & are unremarkable except as noted in HPI & below Constitutional: as per Subjective / HPI Physical Exam Physical Exam: LLE NVSI +EHL/FHL/TA/GS SILT grossly, +2 DP pulse, compartments soft NT, dressing cdi. Constitutional: WD/WN, vitals as above Results & Data Vital Signs (Past 12 Hours) Vital Signs Temp Pulse Resp BP BP Pulse Ox 05/17/19 07:04 36.5 C 72 18 135/80 100 05/17/19 05:46 36.5 C 78 16 156/71 H 97 05/16/19 23:20 36.6 C 78 16 135/72 99 Diagnostic Findings 05/17/19 05/17/19 Range/Units 06:20 06:20 WBC 8.59 (4.8-10.8) K/uL RBC 3.06 L (4.2-5.4) M/uL Hgb 8.5 L (12.0-16.0) g/dL Hct 26.6 L (37-47) % MCV 86.9 (80-100) fL MCH 27.8 (25-34) pg MCHC 32.0 (32-36) g/dL RDW Std Deviation 57.5 H (36.4-46.3) fL RDW Coeff of Charanjit 18.1 H (11.5-14.5) % Plt Count 207 (130-400) K/uL MPV 8.3 (7.4-10.4) fL Sodium 142 (136-145) mmol/L Potassium 4.0 (3.5-5.1) mmol/L Chloride 113 H (98-107) mmol/L Carbon Dioxide 24 (21-32) mmol/L Anion Gap 6.0 (3-11) BUN 18 (7-18) mg/dl Creatinine 0.82 (0.6-1.2) mg/dl Est Cr Clr Drug Dosing 79.5 ml/min Est GFR ( Amer) 88.9 Est GFR (Non-Af Amer) 76.7 BUN/Creatinine Ratio 21.3 H (10-20) Glucose 108 H (70-99) mg/dl Calcium 8.6 (8.5-10.1) mg/dl
[2019-05-17] MEDS ORDERED: AMOXICILLIN 500 MG CAP PO SCH (09:00)
--- NOTE | 2019-05-18 20:51 | Discharge Summary ---
Date of Service May 18, 2019 Admission HPI Per Admitting Provider The patient is a 63 year old female with significant PMHx for left total knee PJI. Seen in January for routine follow up for chronic swelling of the left knee, XR demonstrated osteolysis. Synovial fluid analysis cell count 1235, 92.3% polys, + culture for Enterococcus. Explant of the total knee and placement of antibiotic cement spacer performed on 01/26/19. After a course of prolonged IV abx Daptomycin and Ertepenem, the patient underwent an antibiotic holiday and synovial fluid aspiration performed which demonstrated a cell count of 706, 30.5% polys and negative cultures. The decision was then made to proceed with revision left total knee arthroplasty, removal of antibiotic cement spacer. Principal Diagnosis Revision left total knee replacement Discharge Exam LLE NVSI +EHL/FHL/TA/GS SILT grossly, +2 DP pulse, compartments soft NT, dressing cdi. Constitutional WD/WN, vitals as above Discharge Data Allergies Allergy/AdvReac Type Severity Reaction Status Date / Time No Known Allergies Allergy Verified 04/12/19 09:20 Consultations 05/15/19 16:18 Consult Case Management - Discharge Planning Routine Procedures Performed Operation Date: 05/15/19 11:25 Actual Procedures p Left Knee Arthroplasty Revision, Explant Antibiotic Spacer(Left) - Saurabh Sandoval DO Ordered Studies 05/15/19 05:00 US - OR guided needle placemen Routine Hospital Course (1) Infection of prosthetic knee joint: The patient is a 63 -year-old female who presents s/p explant of the total knee and placement of antibiotic cement spacer performed on 01/26/19 secondary to left knee PJI. After a course of prolonged IV abx Daptomycin and Ertepenem, the patient underwent an antibiotic holiday and synovial fluid aspiration performed which demonstrated a cell count of 706, 30.5% polys and negative cultures. The decision was then made to proceed with revision left total knee arthroplasty, removal of antibiotic cement spacer. I indicated the patient for explant of antibiotic cement spacer, revision left total knee arthroplasty, the risks, benefits and complications of the procedure include but not limited to infection, bleeding, damage to bone, nerves, vessels, surrounding soft tissue, may develop blood clots, loss of function, leg length discrepancy, dislocation, failure of the components, loosening of the components, the need for additional surgery and . The patient wished to proceed with surgery at this time and informed consent was obtained. Hospital Course: On 05/15/19 the patient was taken to the operating room, adequate anesthesia administered and underwent a revision left total knee arthroplasty. The patient tolerated the procedure well and was taken to the PACU in stable condition. Post-operatively the patient was started on a DVT ppx medication and given appropriate IV antibiotics. Consults were placed to physical therapy, occupational therapy and case management. On POD#1, the patient did well overnight and their pain was well controlled. Labs were drawn and the Hgb was 9.5. The patient progressed well with PT. On POD#2, the patient did well overnight and continued to progress with PT. Labs drawn, hgb 8.5. HMV drain DC'd. Dressings were changed at this time and the incision was clean, dry and intact. The patients hospital stay was relatively uneventful and they were deemed stable by the orthopedic team and consultants to be discharged home with on 05/17/19. Discharge Instructions: Upon discharge the patient may weight bear as tolerates through their operative extremity. They were instructed to keep the incision clean and dry at all times. The patient may shower but should not submerge the incision, avoid bathing, pools and hot tubes. The patient was given a script for pain medication and should take as instructed. The patient was given a script for DVT ppx Lovenox 40mg Daily and should take as directed. The patient was instructed to not drive or travel for long distances until cleared to do so. If the patient develops any symptoms of fevers, chills, nausea, vomiting, increased redness, swelling, pain or drainage from the surgical site, they should notify the office and/or proceed to the nearest emergency room. The patient should follow up in 10-14 days after surgery for their routine post-operative follow-up appointment and should call the office to confirm the date and time. s/p explant antibiotic spacer, revision left TKA POD#2 -Vanco/ancef x 24, will restart PO amoxicillin -DVT ppx: SCDs, TEDs, Lovenox -WBAT LLE -PT/OT -monitor drain output - DC'd -am labs - hgb 8.5, asymptomatic, monitor at this time -PO XR demonstrates a well aligned well fixed orthopedic prothesis without fracture/dislocation -DC planning - home with POD#1 -Vanco/ancef x 24, will restart PO amoxicillin -DVT ppx: SCDs, TEDs, Lovenox -WBAT LLE -PT/OT -monitor drain output - 200/200 -am labs - hgb 9.5, acute post operative anemia secondary to intra-op blood loss and dilutional effect -PO XR demonstrates a well aligned well fixed orthopedic prothesis without fracture/dislocation -DC planning Total Time Total Time Spent Total Time Spent (In Minutes): 45 minutes Total Time Includes: Examination of the Patient, Discharge Planning, Medication Reconciliation and Communication With Other Providers Discharge Plan Discharge Items Patient Disposition: Home - Home Health Services Reason For Visit: LEFT KNEE INFECTION & IMFLAMMATORY REACTION D/T IN Discharge Diagnosis: S/P Left TKA infection; Reimplantation Left TKA Condition on Discharge: Good Activity: Per Instructions section Lifting: Wait until after follow-up appointment Bathing: Keep incision dry Bathing Comment: No bathing, pools or hot tubs Sexual Activity: Wait until after follow-up appointment Exercise/Sports: Wait until after follow-up appointment Weightbearing: Left weightbearing Non-emergency contact: Primary Care Provider and Surgeon Call non-emergency contact if: your pain is not controlled, your temperature is above 101.5, your wound has increased redness and your wound has increased drainage Follow-up/Referrals: Lorne Victor PA-C [Primary Care Provider] - Diet: Regular Addtl Attending Provider Instructions: See instructions below Addtl Studio Coordinator Provider Instructions: ACTIVITY RECOMMENDATIONS: SELF CARE INSTRUCTIONS AFTER TOTAL KNEE REPLACEMENT A. You may need to continue a physical therapy program after discharge from the hospital. There are several options available to you. Your doctor will assist you in selecting the best one for you. 1. An out-patient facility 2 to 3 times a week for therapy or home therapy. 2. Continue working on all exercises taught to you in the hospital. Your goals should be to increase bending of your knee to 90 degrees and beyond and to fully straighten your knee. B. You may progress at your own pace from walking with a walker or crutches to a cane; then to no assistive devices. C. Make walking a part of your daily routine. Be up as much as comfortable with rest periods throughout the day. Rest with leg elevation is very important. Use the ice wrap frequently for the first 3-4 weeks. D. There are no restrictions on activities. You may ride in a car, shop, participate in cork pressing machine operator and all social activities. E. Wear the long elastic stockings (PARVIZ hose) 20 hours a day for 2 weeks after surgery. They can be removed several times a day for laundering and for a bath. F. You may shower, no tub baths until cleared by your doctor. SPECIAL CARE INSTRUCTIONS: VERY IMPORTANT TO READ AND REVIEW A. There are a few signs you need to watch for after you are home. Call [facility] if you notice any of the followin. Increased severe knee pain. Some pain is expected especially when you exercise. 2. Increased swelling in your leg or knee; pain or swelling of the calf muscle in either lower leg. 3. Any fluid drainage from the incision. 4. Shortness of breath or chest pain. B. Please call [facility] at if you have any concerns or questions about your operation or recovery. The doctor or his nurse will return your call promptly. C. You must take antibiotics before dental work, bladder, bowel or other surgery. Your doctor will provide you with a permanent care to carry describing this precaution. IMPORTANT: * REMEMBER TO TAKE LOVENOX 40MG DAILY FOR 4 WEEKS UNLESS OTHERWISE DIRECTED. THIS IS YOUR BLOOD THINNER. * HIGH RISK PATIENTS MAY BE PRESCRIBED A STRONGER BLOOD THINNER. THIS WILL BE PROVIDED AT DISCHARGE. * CALL IF INCREASED PAIN, REDNESS, DRAINAGE OR FEVER GREATER THAT 101. * WEAR PARVIZ HOSE 20 HOURS PER DAY FOR 2 WEEKS. * YOU MAY HAVE A LARGE BAND-AID LIKE DRESSING (SILVERON). THIS WILL REMAIN ON YOUR INCISION FOR 7 DAYS, THEN CAN BE REMOVED. IF INCISION IS LEAKING THROUGH DRESSING, CALL THE OFFICE . FOLLOW UP VISIT: If appointment is not already scheduled: Please call [facility] to make a follow-up appointment for 2 weeks after your surgery at . Stand-Alone Forms: My [facility] [employer], Opioid Pain Management Medications and DC Order Prescriptions: New enoxaparin 40 mg/0.4 mL Syringe 40 mg subcut Q24H 28 Days Qty: 28 RF: 0 acetaminophen [Tylenol Extra Strength] 500 mg Tablet 1,000 mg PO Q8 PRN (Reason: Pain and/or fever) Qty: 90 RF: 0 oxycodone 5 mg Tablet 5 mg PO Q6H MDD 6 tabs PRN (Reason: pain) Qty: 30 RF: 0 sennosides [Senokot] 8.6 mg Tablet 17.2 mg PO QAM PRN (Reason: constipation) Qty: 28 RF: 0 Continued amoxicillin 500 mg capsule 500 mg PO BID RF: 0 Discontinued acetaminophen [Tylenol Extra Strength] 500 mg Tablet 500 mg PO BID PRN (Reason: Pain) RF: 0 oxycodone 5 mg Tablet 5 - 10 mg PO Q4H PRN (Reason: pain) Qty: 30 RF: 0 Discharge Orders: Discharge Order (Routine); Ordered 05/17/19 Ordered By: Saurabh Boykin/Other Patient Handouts: Surgery Prevent DVT After, Replacement Knee Home After, Replacement Knee First Month Admission Data Admit Date/Time: 05/15/19 15:30 Attending Provider: Saurabh Sandoval Admit Provider: Saurabh Sandoval Primary Care Provider: Lorne Victor Other Interventions: Discharge Summary Assessment (RN) Last Done: 05/17/19 08:59 DC Date/Time DO NOT enter until pt leaves facility: 05/17/19 10:49
== END 2019-05-17 10:49 | disposition home health service (06) | DRG 467 ==
LOC: ASU 08:50 → 3E 15:30